=== PATIENT | female | born 1965 | race American Indian/Alaskan Native ===

== ENCOUNTER 2017-09-04 00:07 | Emergency (ER) | payer MEDICAID ==
[2017-09-04 02:03] LABS: Basophils % (Auto) 0.9 % (0.0-1.8); Eosinophils % (Auto) 1.4 % (0.0-4.3); Hematocrit 42.8 % (30.3-42.9); Hemoglobin 14.6 gm/dl (10.1-14.3); Mean Corpuscular HGB Conc 34 % (30-34); Mean Corpuscular Hemoglobin 32 pg (28-32); Mean Corpuscular Volume 93 fl (79-97); Platelet Count 227 K/mm3 (140-440); Red Blood Count 4.59 M/mm3 (3.65-5.03); Red Cell Distribution Width 15.2 % (13.2-15.2); White Blood Count 7.2 K/mm3 (4.5-11.0)
[2017-09-04 10:30] LABS: Urine Drugs of Abuse Note Disclamer
[2017-09-04 12:27] LABS: Bacteria,Urine 1+ /HPF (Negative); Bilirubin,Urine NEG (Negative); Blood,Urine SM (Negative); Ketones,Urine 20 mg/dL (Negative); Leukocyte Esterase,Urine NEG (Negative); Mucus,Urine 3+ /HPF; Nitrite,Urine NEG (Negative)
--- NOTE | 2017-09-04 12:44 | Emergency Department Report ---
HPI - General Chief Complaint: Headache Time Seen by Provider: 09/04/17 10:20 - HPI HPI: 51-year-old -[place] female states she drinks about 4-6 beers daily, last drank beers last night, feels like she needs alcohol detox to help her with alcohol cessation. She claims of being mildly anxious, denies chest pain, shortness of breath, has a mild headache which is her usual after binge drinking. She denies using any illicit drug use. She has frequent ER visits for similar issues, stated they usually give her something for anxiety after she drinks too much that helps with her intoxication/hangover. ED Past Medical Hx - Past Medical History Hx Hypertension: Yes Hx Congestive Heart Failure: No Hx Diabetes: Yes (BORDERLINE) Hx Sickle Cell Disease: No Hx Asthma: No Hx COPD: No Hx HIV: No Additional medical history: anemia. low calcium. Hypothyroidism. ALCOHOLIC - Surgical History Additional Surgical History: thyroid and parathyroid removed - Social History Smoking Status: Never Smoker Substance Use Type: Alcohol - Medications Home Medications: Home Medications Medication Instructions Recorded Confirmed Last Taken Type Ferrous Gluconate [Ferrous 1 mg PO TID 01/07/14 11/09/15 1 Day Ago History Gluconate 325 MG tab] Levothyroxine [Synthroid] 25 mcg PO QAM 01/07/14 11/09/15 1 Day Ago History Loratadine [Claritin] 10 mg PO DAILY 01/07/14 11/09/15 1 Day Ago History Sodium Chloride [Saline Nasal 2 spray INTRANASAL QDAY 01/07/14 11/09/15 1 Day Ago History [place]] Multivitamins-Mineral [Theragran-M] 1 each PO DAILY 30 Days 01/08/14 11/09/15 1 Day Ago Rx Pantoprazole [Protonix TAB] 40 mg PO QDAY 14 Days 01/09/14 11/09/15 1 Day Ago Rx amLODIPine [Norvasc] 10 mg PO DAILY 30 Days 01/09/14 11/09/15 1 Day Ago Rx Calcium Carbonate/Vitamin D3 1 tab PO QDAY #30 tablet 12/18/15 Unknown Rx [Calcium 600-Vit D3 800 Tablet] Gabapentin [Neurontin] 300 mg PO Q8HR #90 capsule 12/18/15 Unknown Rx Hydrochlorothiazide [HCTZ] 12.5 mg PO QDAY #30 capsule 12/18/15 Unknown Rx Levothyroxine Sodium [Unithroid] 175 mcg PO DAILY #30 tablet 12/18/15 Unknown Rx Metoprolol [Lopressor TAB] 100 mg PO BID #60 tablet 12/18/15 Unknown Rx Thiamine [Vitamin B-1] 100 mg PO QDAY 30 Days 12/18/15 Unknown Rx Calcitriol [Rocaltrol] 0.5 mcg PO QDAY #7 capsule 02/07/17 Unknown Rx Calcium Carbonate [Oscal] 2,500 mg PO TID #20 tablet 02/07/17 Unknown Rx Ferrous Gluconate [Fergon 325 MG 324 mg PO QDAY #30 tablet 02/07/17 Unknown Rx tab] Folic Acid [Folvite] 1 mg PO DAILY #30 tablet 02/07/17 Unknown Rx Levofloxacin [Levaquin TAB] 750 mg PO Q24HR@2200 #14 tablet 02/07/17 Unknown Rx chlordiazePOXIDE [Librium] 25 mg PO Q8H #14 capsule 02/07/17 Unknown Rx ED Review of Systems ROS: Stated complaint: FOOT PAIN Other details as noted in HPI Comment: All other systems reviewed and negative Musculoskeletal: as per HPI Neurological: headache Physical Exam - Physical Exam Vital Signs: Vital Signs 09/04/17 09/04/17 09/04/17 01:06 01:19 07:45 Temperature 97.5 F L 97.5 F L 97.8 F Pulse Rate 98 H 96 H 95 H Respiratory 18 18 16 Rate Blood Pressure 165/110 165/110 156/102 Blood Pressure [Left] O2 Sat by Pulse 100 100 99 Oximetry 09/04/17 09/04/17 09/04/17 10:11 10:16 10:21 Temperature 98 F Pulse Rate 93 H Respiratory 16 Rate Blood Pressure 140/85 140/85 Blood Pressure 140/85 [Left] O2 Sat by Pulse 100 100 Oximetry 09/04/17 09/04/17 09/04/17 10:30 11:31 11:45 Temperature Pulse Rate Respiratory Rate Blood Pressure 140/85 137/87 137/87 Blood Pressure [Left] O2 Sat by Pulse 100 100 98 Oximetry Physical Exam: Physical Exam: - General Limitations: No Limitations General appearance: alert, in no apparent distress, obese - Head Head exam: Present: atraumatic, normocephalic - Eye Eye exam: Present: normal appearance - ENT ENT exam: Present: mucous membranes moist - Neck Neck exam: Present: normal inspection - Respiratory Respiratory exam: Present: normal lung sounds bilaterally. Absent: respiratory distress - Cardiovascular Cardiovascular Exam: Present: normal rhythm, tachycardia. Absent: systolic murmur, diastolic murmur, rubs, gallop - GI/Abdominal GI/Abdominal exam: Present: soft, normal bowel sounds - Extremities Exam Extremities exam: Present: normal inspection - Back Exam Back exam: Present: normal inspection - Neurological Exam Neurological exam: Present: alert, oriented X3 - Psychiatric Psychiatric exam: normal affect and mood - Skin Skin exam: Present: warm, dry, intact, normal color. Absent: rash ED Course Vital Signs 09/04/17 09/04/17 09/04/17 01:06 01:19 07:45 Temperature 97.5 F L 97.5 F L 97.8 F Pulse Rate 98 H 96 H 95 H Respiratory 18 18 16 Rate Blood Pressure 165/110 165/110 156/102 Blood Pressure [Left] O2 Sat by Pulse 100 100 99 Oximetry 09/04/17 09/04/17 09/04/17 10:11 10:16 10:21 Temperature 98 F Pulse Rate 93 H Respiratory 16 Rate Blood Pressure 140/85 140/85 Blood Pressure 140/85 [Left] O2 Sat by Pulse 100 100 Oximetry 09/04/17 09/04/17 09/04/17 10:30 11:31 11:45 Temperature Pulse Rate Respiratory Rate Blood Pressure 140/85 137/87 137/87 Blood Pressure [Left] O2 Sat by Pulse 100 100 98 Oximetry - Reevaluation(s) Reevaluation #1: 09/04/17 12:43 Will be he'll have regarding the patient desired to have inpatient detox from alcohol, they will send someone to see her patient is medically clear for alcohol detoxification if deemed necessary by psych ED Medical Decision Making - Lab Data Result diagrams: 09/04/17 01:43 Critical care attestation.: If time is entered above; I have spent that time in minutes in the direct care of this critically ill patient, excluding procedure time. ED Disposition Clinical Impression: Alcohol abuse Disposition: [id number] [facility] H[facility]/PSY UNIT Is pt being admited?: No Does the pt Need Aspirin: No Condition: Stable Referrals: PRIMARY CARE, [Primary Care Provider] - 3-5 Days
[2017-09-04] MEDS: ATIVAN PO ONE (16:01)
[2017-09-04 18:45] VITALS: BP 129/73
== END 2017-09-05 01:47 ==
LOC: ED 00:07 → EEVIPCON 00:07 → ED 09-05 01:47
DX: F10.10 Alcohol abuse, uncomplicated (principal); R51 Headache
CPT/HCPCS: 36415; 80307; 81001; 83880; 85025; 93005; 93010; 99285; G0480; 80320

== ENCOUNTER 2018-08-16 05:19 | Inpatient (IN) | payer MEDICAID, OTHER ==
[2018-08-16] MEDS ORDERED: TYLENOL PO ONE (06:19)
[2018-08-16] MEDS ORDERED: TYLENOL ONE (06:25)
[2018-08-16 06:49] LABS: Basophils # (Auto) 0.1 K/mm3 (0.0-0.1); Basophils % (Auto) 0.7 % (0.0-1.8); Eosinophils # (Auto) 0.1 K/mm3 (0.0-0.4); Eosinophils % (Auto) 0.6 % (0.0-4.3); Hematocrit 38.6 % (30.3-42.9); Hemoglobin 13.2 gm/dl (10.1-14.3); Lymphocytes # (Auto) 1.7 K/mm3 (1.2-5.4); Lymphocytes % (Auto) 15.5 % (13.4-35.0); Mean Corpuscular HGB Conc 34 % (30-34); Mean Corpuscular Hemoglobin 33 pg (28-32); Mean Corpuscular Volume 96 fl (79-97); Monocytes # (Auto) 0.5 K/mm3 (0.0-0.8); Monocytes % (Auto) 4.3 % (0.0-7.3); Platelet Count 312 K/mm3 (140-440); Red Blood Count 4.04 M/mm3 (3.65-5.03); Red Cell Distribution Width 13.7 % (13.2-15.2)
--- NOTE | 2018-08-16 06:59 | XRay Report ---
FINAL REPORT EXAM: XR CHEST ROUTINE 2V HISTORY: Shortness of breath TECHNIQUE: PA and lateral views of the chest were submitted. FINDINGS: The heart size and vascularity appear normal. The lungs are clear. Pleural fluid is not seen. The skeletal structures do not show any acute changes. IMPRESSION: No acute cardiopulmonary process.
[2018-08-16 07:09] LABS: BUN/Creatinine Ratio 9; Blood Urea Nitrogen 6 mg/dL (7-17); Hemolysis Index 4
[2018-08-16 07:18] LABS: Calcium 5.5 mg/dL (8.4-10.2)
[2018-08-16] MEDS ORDERED: LIBRIUM PO ONE (07:52)
[2018-08-16] MEDS ORDERED: ATIVAN IV PRN ×2 (07:52)
--- NOTE | 2018-08-16 07:56 | Emergency Department Report ---
ED General Adult HPI - General Chief complaint: Dyspnea/Respdistress Stated complaint: BODY PAIN/SWOLLEN FEET Time Seen by Provider: 08/16/18 07:29 Source: patient, RN notes reviewed, old records reviewed Mode of arrival: Ambulatory Limitations: No Limitations - History of Present Illness Initial comments: This is a 52-year-old female who was not to this provider previously. The patient has a past medical history of alcohol abuse, alcoholism, lower extremity edema, chronic hypocalcemia. 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 Patient was discharged with calcium carbonate, calcitriol and Librium. Alcohol abstinence was recommended. Today, she presents to the ER with a complaint of nontraumatic burning left plantar and dorsal foot pain, mild headache which is occipital, not sudden or thunderclap in nature, and subjective sensation of alcohol withdrawal. Her symptoms are constant, do not radiate anywhere, and do not have exacerbating or relieving factors. She indicates her last drink of alcohol was last night. She is not having hallucinations or suicidality, and she is not homicidal. The patient reports that she is also feeling anxious. -: Gradual Location: head, left, lower extremity Radiation: non-radiation Severity scale (0 -10): 7 Quality: aching Consistency: other Improves with: other Worsens with: other Associated Symptoms: headaches, loss of appetite, malaise, weakness. denies: confusion, chest pain, cough, diaphoresis, fever/chills, nausea/vomiting, rash, seizure, shortness of breath, syncope - Related Data Home Medications Medication Instructions Recorded Confirmed Last Taken Ferrous Gluconate [Ferrous 1 mg PO TID 01/07/14 11/09/15 1 Day Ago Gluconate 325 MG tab] ~11/08/15 Levothyroxine [Synthroid] 25 mcg PO QAM 01/07/14 11/09/15 1 Day Ago ~11/08/15 Loratadine [Claritin] 10 mg PO DAILY 01/07/14 11/09/15 1 Day Ago ~11/08/15 Sodium Chloride [Saline Nasal 2 spray INTRANASAL QDAY 01/07/14 11/09/15 1 Day Ago [place]] ~11/08/15 Previous Rx's Medication Instructions Recorded Last Taken Type Multivitamins-Mineral [Theragran-M] 1 each PO DAILY 30 Days tablet 01/08/14 1 Day Ago Rx ~11/08/15 Pantoprazole [Protonix TAB] 40 mg PO QDAY 14 Days tablet 01/09/14 1 Day Ago Rx ~11/08/15 amLODIPine [Norvasc] 10 mg PO DAILY 30 Days tab 01/09/14 1 Day Ago Rx ~11/08/15 Calcium Carbonate/Vitamin D3 1 tab PO QDAY #30 tablet 12/18/15 Unknown Rx [Calcium 600-Vit D3 800 Tablet] Gabapentin [Neurontin] 300 mg PO Q8HR #90 capsule 12/18/15 Unknown Rx Levothyroxine Sodium [Unithroid] 175 mcg PO DAILY #30 tablet 12/18/15 Unknown Rx Metoprolol [Lopressor TAB] 100 mg PO BID #60 tablet 12/18/15 Unknown Rx Thiamine [Vitamin B-1] 100 mg PO QDAY 30 Days tablet 12/18/15 Unknown Rx hydroCHLOROthiazide [HCTZ] 12.5 mg PO QDAY #30 capsule 12/18/15 Unknown Rx Calcitriol [Rocaltrol] 0.5 mcg PO QDAY #7 capsule 02/07/17 Unknown Rx Calcium Carbonate [Oscal] 2,500 mg PO TID #20 tablet 02/07/17 Unknown Rx Ferrous Gluconate [Fergon 325 MG 324 mg PO QDAY #30 tablet 02/07/17 Unknown Rx tab] Folic Acid [Folvite] 1 mg PO DAILY #30 tablet 02/07/17 Unknown Rx chlordiazePOXIDE [Librium] 25 mg PO Q8H #14 capsule 02/07/17 Unknown Rx levoFLOXacin [Levaquin TAB] 750 mg PO Q24HR@2200 #14 tablet 02/07/17 Unknown Rx Allergies Allergy/AdvReac Type Severity Reaction Status Date / Time No Known Allergies Allergy Verified 02/01/17 13:04 ED Review of Systems ROS: Stated complaint: BODY PAIN/SWOLLEN FEET Other details as noted in HPI Comment: All other systems reviewed and negative ED Past Medical Hx - Past Medical History Previous Medical History?: Yes Hx Hypertension: Yes Hx Congestive Heart Failure: No Hx Diabetes: Yes (BORDERLINE) Hx Sickle Cell Disease: No Hx Asthma: No Hx COPD: No Hx HIV: No Additional medical history: anemia. low calcium. Hypothyroidism. ALCOHOLIC - Surgical History Past Surgical History?: Yes Additional Surgical History: thyroid and parathyroid removed - Social History Smoking Status: Never Smoker Substance Use Type: Alcohol - Medications Home Medications: Home Medications Medication Instructions Recorded Confirmed Last Taken Type Ferrous Gluconate [Ferrous 1 mg PO TID 01/07/14 11/09/15 1 Day Ago History Gluconate 325 MG tab] ~11/08/15 Levothyroxine [Synthroid] 25 mcg PO QAM 01/07/14 11/09/15 1 Day Ago History ~11/08/15 Loratadine [Claritin] 10 mg PO DAILY 01/07/14 11/09/15 1 Day Ago History ~11/08/15 Sodium Chloride [Saline Nasal 2 spray INTRANASAL QDAY 01/07/14 11/09/15 1 Day Ago History [place]] ~11/08/15 Multivitamins-Mineral [Theragran-M] 1 each PO DAILY 30 Days tablet 01/08/14 1 Day Ago Rx ~11/08/15 Pantoprazole [Protonix TAB] 40 mg PO QDAY 14 Days tablet 01/09/14 11/09/15 1 Day Ago Rx ~11/08/15 amLODIPine [Norvasc] 10 mg PO DAILY 30 Days tab 01/09/14 11/09/15 1 Day Ago Rx ~11/08/15 Calcium Carbonate/Vitamin D3 1 tab PO QDAY #30 tablet 12/18/15 Unknown Rx [Calcium 600-Vit D3 800 Tablet] Gabapentin [Neurontin] 300 mg PO Q8HR #90 capsule 12/18/15 Unknown Rx Levothyroxine Sodium [Unithroid] 175 mcg PO DAILY #30 tablet 12/18/15 Unknown Rx Metoprolol [Lopressor TAB] 100 mg PO BID #60 tablet 12/18/15 Unknown Rx Thiamine [Vitamin B-1] 100 mg PO QDAY 30 Days tablet 12/18/15 Unknown Rx hydroCHLOROthiazide [HCTZ] 12.5 mg PO QDAY #30 capsule 12/18/15 Unknown Rx Calcitriol [Rocaltrol] 0.5 mcg PO QDAY #7 capsule 02/07/17 Unknown Rx Calcium Carbonate [Oscal] 2,500 mg PO TID #20 tablet 02/07/17 Unknown Rx Ferrous Gluconate [Fergon 325 MG 324 mg PO QDAY #30 tablet 02/07/17 Unknown Rx tab] Folic Acid [Folvite] 1 mg PO DAILY #30 tablet 02/07/17 Unknown Rx chlordiazePOXIDE [Librium] 25 mg PO Q8H #14 capsule 02/07/17 Unknown Rx levoFLOXacin [Levaquin TAB] 750 mg PO Q24HR@2200 #14 tablet 02/07/17 Unknown Rx ED Physical Exam - General Limitations: No Limitations General appearance: alert, in no apparent distress - Head Head exam: Present: atraumatic, normocephalic - Eye Eye exam: Present: normal appearance, EOMI. Absent: nystagmus - ENT ENT exam: Present: mucous membranes dry, other (mild tongue fasciculations noted.) - Neck Neck exam: Present: normal inspection, full ROM. Absent: tenderness, meningismus - Respiratory Respiratory exam: Present: normal lung sounds bilaterally. Absent: respiratory distress - Cardiovascular Cardiovascular Exam: Present: regular rate, normal rhythm, normal heart sounds. Absent: bradycardia, tachycardia, irregular rhythm, systolic murmur, diastolic murmur, rubs, gallop - GI/Abdominal GI/Abdominal exam: Present: soft. Absent: distended, tenderness, guarding, rebound, rigid, pulsatile mass - Extremities Exam Extremities exam: Present: normal inspection, full ROM, tenderness (there is plantar bilateral foot tenderness. There is no dorsal foot tenderness. There is no redness, pus, streaking.), normal capillary refill, pedal edema (2+ pitting edema bilateral lower extremities), other (2+ pulses noted in the bilateral upper, lower extremities. Compartments soft. No long bony tenderness. The pelvis is stable.). Absent: calf tenderness - Back Exam Back exam: Present: normal inspection, full ROM. Absent: tenderness, CVA tenderness (R), paraspinal tenderness, vertebral tenderness - Neurological Exam Neurological exam: Present: alert, oriented X3, CN II-XII intact, normal gait, other (Extraocular movements intact. Tongue midline. No facial droop. Facial sensation intact to light touch in the V1, V2, V3 distribution bilaterally. 5 and 5 strength in 4 extremities.. Sensation is intact to light touch in 4 extremities.). Absent: motor sensory deficit - Psychiatric Psychiatric exam: Absent: homicidal ideation, suicidal ideation - Skin Skin exam: Present: warm, dry, intact, normal color. Absent: rash ED Course Vital Signs 08/16/18 08/16/18 08/16/18 06:11 06:25 07:32 Temperature 98.1 F Pulse Rate 87 88 Respiratory 18 18 16 Rate Blood Pressure 176/102 O2 Sat by Pulse 98 Oximetry 08/16/18 08/16/18 08/16/18 08:00 08:16 08:30 Temperature Pulse Rate 87 89 87 Respiratory 11 L 16 16 Rate Blood Pressure 159/87 165/90 173/149 O2 Sat by Pulse 100 100 Oximetry 08/16/18 08/16/18 08/16/18 08:55 09:00 09:12 Temperature 98.2 F Pulse Rate 88 92 H 83 Respiratory 16 Rate Blood Pressure 159/87 145/97 O2 Sat by Pulse 99 Oximetry 08/16/18 08/16/18 09:15 09:30 Temperature Pulse Rate 84 89 Respiratory 16 16 Rate Blood Pressure 125/90 125/90 O2 Sat by Pulse 99 98 Oximetry ED Medical Decision Making - Lab Data Result diagrams: 08/16/18 06:34 08/16/18 06:34 Vital Signs 08/16/18 08/16/18 08/16/18 06:11 06:25 07:32 Temperature 98.1 F Pulse Rate 87 88 Respiratory 18 18 16 Rate Blood Pressure 176/102 O2 Sat by Pulse 98 Oximetry 08/16/18 08/16/18 08/16/18 08:00 08:16 08:30 Temperature Pulse Rate 87 89 87 Respiratory 11 L 16 16 Rate Blood Pressure 159/87 165/90 173/149 O2 Sat by Pulse 100 100 Oximetry 08/16/18 08/16/18 08/16/18 08:55 09:00 09:12 Temperature 98.2 F Pulse Rate 88 92 H 83 Respiratory 16 Rate Blood Pressure 159/87 145/97 O2 Sat by Pulse 99 Oximetry 08/16/18 08/16/18 09:15 09:30 Temperature Pulse Rate 84 89 Respiratory 16 16 Rate Blood Pressure 125/90 125/90 O2 Sat by Pulse 99 98 Oximetry Labs 08/16/18 08/16/18 08/16/18 06:34 06:34 06:34 WBC 11.2 H RBC 4.04 Hgb 13.2 Hct 38.6 MCV 96 MCH 33 H MCHC 34 RDW 13.7 Plt Count 312 Lymph % (Auto) 15.5 [place] % (Auto) 4.3 Eos % (Auto) 0.6 Baso % (Auto) 0.7 Lymph # 1.7 [place] # 0.5 Eos # 0.1 Baso # 0.1 Seg Neutrophils % 78.9 H Seg Neutrophils # 8.9 H Sodium 141 Potassium 4.4 Chloride 97.7 L Carbon Dioxide 26 Anion Gap 22 BUN 6 L Creatinine 0.7 Estimated GFR > 60 BUN/Creatinine Ratio 9 Glucose 100 Calcium 5.5 L* Magnesium 1.50 L Total Bilirubin 0.40 Direct Bilirubin < 0.2 Indirect Bilirubin 0.2 AST 31 ALT 20 Alkaline Phosphatase 125 Total Creatine Kinase 470 H NT-Pro-B Natriuret Pep 87.79 Total Protein 9.0 H Albumin 4.2 Albumin/Globulin Ratio 0.9 Urine Color Urine Turbidity Urine pH Ur Specific [place] Urine Protein Urine Glucose (UA) Urine Ketones Urine Blood Urine Nitrite Urine Bilirubin Urine Urobilinogen Ur Leukocyte Esterase Urine WBC (Auto) Urine RBC (Auto) U Epithel Cells (Auto) Urine Bacteria (Auto) Urine Mucus Salicylates Urine Opiates Screen Urine Methadone Screen Acetaminophen Ur Barbiturates Screen Ur Phencyclidine Scrn Ur Amphetamines Screen U Benzodiazepines Scrn Urine Cocaine Screen U Marijuana (THC) Screen Drugs of Abuse Note Plasma/Serum Alcohol 08/16/18 08/16/18 08/16/18 06:40 06:40 06:40 WBC RBC Hgb Hct MCV MCH MCHC RDW Plt Count Lymph % (Auto) [place] % (Auto) Eos % (Auto) Baso % (Auto) Lymph # [place] # Eos # Baso # Seg Neutrophils % Seg Neutrophils # Sodium Potassium Chloride Carbon Dioxide Anion Gap BUN Creatinine Estimated GFR BUN/Creatinine Ratio Glucose Calcium Magnesium Total Bilirubin Direct Bilirubin Indirect Bilirubin AST ALT Alkaline Phosphatase Total Creatine Kinase NT-Pro-B Natriuret Pep Total Protein Albumin Albumin/Globulin Ratio Urine Color Urine Turbidity Urine pH Ur Specific [place] Urine Protein Urine Glucose (UA) Urine Ketones Urine Blood Urine Nitrite Urine Bilirubin Urine Urobilinogen Ur Leukocyte Esterase Urine WBC (Auto) Urine RBC (Auto) U Epithel Cells (Auto) Urine Bacteria (Auto) Urine Mucus Salicylates < 0.3 L Urine Opiates Screen Urine Methadone Screen Acetaminophen < 5.0 L Ur Barbiturates Screen Ur Phencyclidine Scrn Ur Amphetamines Screen U Benzodiazepines Scrn Urine Cocaine Screen U Marijuana (THC) Screen Drugs of Abuse Note Plasma/Serum Alcohol < 0.01 08/16/18 08/16/18 07:52 07:52 WBC RBC Hgb Hct MCV MCH MCHC RDW Plt Count Lymph % (Auto) [place] % (Auto) Eos % (Auto) Baso % (Auto) Lymph # [place] # Eos # Baso # Seg Neutrophils % Seg Neutrophils # Sodium Potassium Chloride Carbon Dioxide Anion Gap BUN Creatinine Estimated GFR BUN/Creatinine Ratio Glucose Calcium Magnesium Total Bilirubin Direct Bilirubin Indirect Bilirubin AST ALT Alkaline Phosphatase Total Creatine Kinase NT-Pro-B Natriuret Pep Total Protein Albumin Albumin/Globulin Ratio Urine Color Yellow Urine Turbidity Clear Urine pH 6.0 Ur Specific [place] 1.013 Urine Protein <15 mg/dl Urine Glucose (UA) Neg Urine Ketones Neg Urine Blood Sm Urine Nitrite Neg Urine Bilirubin Neg Urine Urobilinogen < 2.0 Ur Leukocyte Esterase Neg Urine WBC (Auto) 2.0 Urine RBC (Auto) 4.0 U Epithel Cells (Auto) 1.0 Urine Bacteria (Auto) 1+ Urine Mucus Few Salicylates Urine Opiates Screen Presumptive negative Urine Methadone Screen Presumptive negative Acetaminophen Ur Barbiturates Screen Presumptive negative Ur Phencyclidine Scrn Presumptive negative Ur Amphetamines Screen Presumptive negative U Benzodiazepines Scrn Presumptive negative Urine Cocaine Screen Presumptive negative U Marijuana (THC) Screen Presumptive negative Drugs of Abuse Note Disclamer Plasma/Serum Alcohol - EKG Data -: EKG Interpreted by Dc EKG shows normal: sinus rhythm Rate: normal - EKG Data Interpretation: unchanged when compared t 08/16/18 09:55 Sinus, 87 bpm, left axis deviation, QTC prolonged, low voltage, abnormal EKG, this EKG is not a STEMI, this EKG appears to be unchanged from prior EKG from August 2017. - Radiology Data Radiology results: report reviewed, image reviewed Noncontrast CT scan of the brain is negative for acute disease. X-ray the chest is negative for acute disease. LIVE [facility] ROSEANN WONG Female : 1965 MedRec# [id number] 08/16/18 08:48 - Radiology Dept. Note by STUART LIMA Acct Num: [id number] : 1965 Patient Age: 52 VASCULAR LAB.PRELIMINARY REPORT. BLE VENOUS DUPLEX DONE BEDSIDE. NO EVIDENCE OF DVT/SVT IN VESSELS VISUALIZED. Initialized on 08/16/18 08:48 - END OF NOTE - Medical Decision Making Differential diagnosis, including but not limited to: Venous insufficiency, DVT , malnutrition, hypocalcemia, alcohol withdrawal Assessment and plan: 52-year-old female with mild alcohol withdrawal, chronic lower extremity edema, multiple electrolyte derangements, including hypomagnesemia and hypocalcemia. Patient does not meet 1013 criteria. Patient started on the ciwa protocol, and she is given magnesium repletion as well as calcium repletion. A mental health consultation has been requested and they will follow as inpatient. Noncontrast CT scan of the brain is negative, x-ray of the chest is negative, and lower extremity DVT study is also negative. The case was presented to the Hospital physician, Dr. Aaron, who accepted the patient for electrolyte derangement in mild alcohol withdrawal. Critical Care Time: Yes Critical care time in (mins) excluding proc time.: 35 Critical care attestation.: If time is entered above; I have spent that time in minutes in the direct care of this critically ill patient, excluding procedure time. Critical Care Time: Critical care time includes multiple bedside evaluations, interpretation of laboratory studies, radiology studies, review of old medical records, consulting with hospital medicine service, and time spent observing patient's on cardiac monitoring while magnesium sulfate supplementation is administered. This does not include procedure time. ED Disposition Clinical Impression: Alcoholism, Hypocalcemia, Hypomagnesemia Disposition: OP ADMIT IP TO THIS HOSP Is pt being admited?: Yes Condition: Good
--- NOTE | 2018-08-16 08:02 | History and Physical Report ---
History of Present Illness Date of admission: generalized body pain Chief complaint: generalized body pain History of present illness: 52-year-old -Algerian female whose past medical history significant for hypertension, hypoparathyroidism,, alcohol abuse presented to the emergency department complaining of generalized body pain for the last 2-3 days. Patient said it hurts on the head, back and legs, 9 out of 10 in intensity, patient said sometimes sharp, dull, throbbing and said constant pain. Patient said her last drink was yesterday and she feels anxious, shakiness and dizziness. She said she has withdrawal. He usually drinks 4-5 cans of beers. REVIEW OF SYSTEMS: GENERAL: no weight change, no fatigue, no fever HEAD: no head ache EYES: no blurry vision, no acute visual loss EARS: no hearing loss, no discharge, no earache NOSE: no stuffiness, no sneezing, no discharge MOUTH, THROAT AND NECK: no bleeding gums, no sore throat, no swollen neck CARDIAC: no palpitations, no dyspnea on exertion, no orthopnea, no PND, no edema , no chest pain RESPIRATORY: no shortness of breath, no wheeze, no cough, no sputum, no hemoptysis, no asthma GI: no decreased appetite, no nausea, no vomiting, no dysphagia, no diarrhea, no constipation, no abdominal pain URINARY: no change in frequency, no urgency, no polyuria, no hematuria, no incontinence MUSCULOSKELETAL: no muscle weakness, no pain, no joint stiffness NEUROLOGIC: no loss of sensation/numbness, no tingling, no tremors, no weakness/ paralysis HEMATOLOGIC: no anemia, no easy bruising SKIN: no rashes ENDOCRINE: no heat/cold intolerance, no polyuria, no polydipsia, no thyroid problems, no diabetes PSYCHIATRIC: no anxiety, no depression, no suicidal ideations Past History Past Medical History: hypertension Past Surgical History: thyroidectomy, Other (parathyroidectomy) Social history: alcohol abuse, full code. denies: smoking, prescription drug abuse Family history: no significant family history Medications and Allergies Allergies Allergy/AdvReac Type Severity Reaction Status Date / Time No Known Allergies Allergy Verified 02/01/17 13:04 Home Medications Medication Instructions Recorded Confirmed Last Taken Type Multivitamins-Mineral [Theragran-M] 1 each PO DAILY 30 Days tablet 01/08/14 1 Day Ago Rx ~11/08/15 amLODIPine [Norvasc] 10 mg PO DAILY 30 Days tab 01/09/14 08/16/18 1 Day Ago Rx ~11/08/15 Calcium Carbonate/Vitamin D3 1 tab PO QDAY #30 tablet 12/18/15 08/16/18 Unknown Rx [Calcium 600-Vit D3 800 Tablet] Ferrous Gluconate [Fergon 325 MG 324 mg PO QDAY #30 tablet 02/07/17 08/16/18 Unknown Rx tab] Folic Acid [Folvite] 1 mg PO DAILY #30 tablet 02/07/17 08/16/18 Unknown Rx Gabapentin [Neurontin] 600 mg PO Q8HR 08/16/18 08/16/18 Unknown History Levothyroxine [Synthroid] 75 mcg PO QAM 08/16/18 08/16/18 Unknown History hydroCHLOROthiazide [HCTZ] 25 mg PO QDAY 08/16/18 08/16/18 Unknown History Active Meds: Active Medications Calcitriol (Rocaltrol) 0.5 mcg PO ONCE ONE Stop: 08/16/18 07:53 Calcium Carbonate/Glycine (Oscal) 1,250 mg PO NOW STA Stop: 08/16/18 07:53 Calcium Gluconate 1,000 mg/ (Sodium Chloride) 110 mls @ 660 mls/hr IV ONCE ONE Stop: 08/16/18 08:01 Thiamine HCl 100 mg/ Folic Acid 1 mg/ Multivitamins/Minerals 10 ml/ Sodium Chloride 1,011.2 mls @ 250 mls/hr IV ONCE ONE Stop: 08/16/18 11:57 Lorazepam (Ativan) 2 mg IV Q1HR PRN PRN Reason: CIWA-Ar 8-15 Lorazepam (Ativan) 4 mg IV Q1HR PRN PRN Reason: CIWA-Ar 16-25 Lorazepam (Ativan) 4 mg IV Q15MIN PRN PRN Reason: CIWA-Ar >25 Exam - Physical Exam Narrative exam: Not in cardiopulmonary distress. The patient appeared well nourished and normally developed. Vital signs as documented. Head exam is unremarkable. No scleral icterus . Neck is without jugular venous distension, thyromegaly, or carotid bruits. Lungs are clear to auscultation. Cardiac exam reveals regular rate and Rhythm. First and second heart sounds normal. No murmurs, rubs or gallops. Abdominal exam reveals normal bowel sounds, no masses, no organomegaly and no aortic enlargement. Extremities are nonedematous and both femoral and pedal pulses are normal. IS MANAGER: Alert and oriented 3. Fine termers. - Constitutional Vitals: Temp Pulse Resp BP Pulse Ox 98.1 F 87 18 176/102 98 08/16/18 06:11 08/16/18 06:11 08/16/18 06:25 08/16/18 06:11 08/16/18 06:11 Results - Labs CBC & Chem 7: 08/16/18 06:34 08/16/18 06:34 Labs: Laboratory Last Values WBC 11.2 K/mm3 (4.5-11.0) H 08/16/18 06:34 RBC 4.04 M/mm3 (3.65-5.03) 08/16/18 06:34 Hgb 13.2 gm/dl (10.1-14.3) 08/16/18 06:34 Hct 38.6 % (30.3-42.9) 08/16/18 06:34 MCV 96 fl (79-97) 08/16/18 06:34 MCH 33 pg (28-32) H 08/16/18 06:34 MCHC 34 % (30-34) 08/16/18 06:34 RDW 13.7 % (13.2-15.2) 08/16/18 06:34 Plt Count 312 K/mm3 (140-440) 08/16/18 06:34 Lymph % (Auto) 15.5 % (13.4-35.0) 08/16/18 06:34 [place] % (Auto) 4.3 % (0.0-7.3) 08/16/18 06:34 Eos % (Auto) 0.6 % (0.0-4.3) 08/16/18 06:34 Baso % (Auto) 0.7 % (0.0-1.8) 08/16/18 06:34 Lymph # 1.7 K/mm3 (1.2-5.4) 08/16/18 06:34 [place] # 0.5 K/mm3 (0.0-0.8) 08/16/18 06:34 Eos # 0.1 K/mm3 (0.0-0.4) 08/16/18 06:34 Baso # 0.1 K/mm3 (0.0-0.1) 08/16/18 06:34 Seg Neutrophils % 78.9 % (40.0-70.0) H 08/16/18 06:34 Seg Neutrophils # 8.9 K/mm3 (1.8-7.7) H 08/16/18 06:34 Sodium 141 mmol/L (137-145) 08/16/18 06:34 Potassium 4.4 mmol/L (3.6-5.0) 08/16/18 06:34 Chloride 97.7 mmol/L (98-107) L 08/16/18 06:34 Carbon Dioxide 26 mmol/L (22-30) 08/16/18 06:34 Anion Gap 22 mmol/L 08/16/18 06:34 BUN 6 mg/dL (7-17) L 08/16/18 06:34 Creatinine 0.7 mg/dL (0.7-1.2) 08/16/18 06:34 Estimated GFR > 60 ml/min 08/16/18 06:34 BUN/Creatinine Ratio 9 % 08/16/18 06:34 Glucose 100 mg/dL (65-100) 08/16/18 06:34 Calcium 5.5 mg/dL (8.4-10.2) L* 08/16/18 06:34 NT-Pro-B Natriuret Pep 87.79 pg/mL (0-900) 08/16/18 06:34 Salicylates < 0.3 mg/dL (2.8-20.0) L 08/16/18 06:40 Acetaminophen < 5.0 ug/mL (10.0-30.0) L 08/16/18 06:40 Plasma/Serum Alcohol < 0.01 % (0-0.07) 08/16/18 06:40 Assessment and Plan Assessment and plan: Alcohol withdrawal DT - Patient is on [facility] protocol Hypothyroidism - Continue levothyroxine Hypoparathyroidism, severe hypocalcemia - Patient was given calcium gluconate in the ED - We'll continue calcium replacement Hypertension - Resume her medications Generalized pain - Pain control Disposition - Admit to [facility] floor DVT prophylaxis - Lovenox Advance Directives: Yes VTE prophylaxis?: Chemical Plan of care discussed with patient/family: Yes
[2018-08-16 08:09] LABS: Alanine Aminotransferase 20 units/L (7-56); Albumin 4.2 g/dL (3.9-5)
[2018-08-16 08:26] LABS: Bilirubin,Direct < 0.2 mg/dL (0-0.2)
[2018-08-16] MEDS ORDERED: ATIVAN ONE (08:29)
[2018-08-16] MEDS ORDERED: OSCAL PO ONE (08:30)
[2018-08-16] MEDS ORDERED: MAGNESIUM SULFATE 2GM/50ML 2 GM/50 ML BAG IV ONE (08:30)
[2018-08-16] MEDS ORDERED: CALCIUM GLUCONATE 1,000 MG in NACL 0.9% 100 ML IV ONE (08:30)
[2018-08-16] MEDS ORDERED: LIBRIUM ONE (08:31)
[2018-08-16 08:38] LABS: Bacteria,Urine 1+ /HPF (Negative); Bilirubin,Urine NEG (Negative); Blood,Urine SM (Negative); Color,Urine Yellow (Yellow); Mucus,Urine FEW /HPF; Protein,Urine <15 mg/dL mg/dL (Negative); Urobilinogen,Urine < 2.0 mg/dL (<2.0)
[2018-08-16 08:41] LABS: Amphetamine Screen,Urine PRESUMPTIVE NEGATIVE; Benzodiazepines Screen,Urine PRESUMPTIVE NEGATIVE; Cannabinoid Screen,Urine PRESUMPTIVE NEGATIVE; Cocaine Screen,Urine PRESUMPTIVE NEGATIVE; Methadone Screen,Urine PRESUMPTIVE NEGATIVE; Opiate Screen,Urine PRESUMPTIVE NEGATIVE
[2018-08-16] MEDS ORDERED: ROCALTROL PO ONE (09:00)
[2018-08-16] MEDS ORDERED: VITAMIN B-1 100 MG, FOLVITE 1 MG, INFUVITE 10 ML in NACL 0.9% 1000 ML 1,000 ML IV ONE (09:00)
[2018-08-16] MEDS: ATIVAN IV PRN ×3 (09:05→22:30)
--- NOTE | 2018-08-16 09:33 | Cat Scan Report ---
FINAL REPORT EXAM: CT HEAD/BRAIN WO CON HISTORY: headache etoh abuse COMPARISON: None. TECHNIQUE: Multiple contiguous axial images were obtained from the skullbase to the vertex without administration of IV contrast. FINDINGS: There is no parenchymal hemorrhage or extra-axial fluid collection. There is no mass or mass effect. There is no acute territorial infarct. The ventricles are midline. The subarachnoid spaces and basilar cisterns are clear. There is no skull fracture. The paranasal sinuses and mastoid air cells are clear. There is a hematoma of the soft tissues of the left frontal scalp. IMPRESSION: No acute intracranial abnormality. Left frontal scalp hematoma.
[2018-08-16] MEDS ORDERED: CALCIUM CARBONATE PO SCH (14:30)
[2018-08-16] MEDS ORDERED: VITAMIN D3 PO SCH (14:30)
[2018-08-16] MEDS: NORVASC PO SCH (16:30)
[2018-08-16] MEDS: HCTZ PO SCH (16:31)
[2018-08-16] MEDS: NEURONTIN PO SCH ×2 (16:31→22:06)
[2018-08-16] MEDS: FOLVITE PO SCH (16:31)
[2018-08-16] MEDS ORDERED: LOVENOX SUB-Q SCH (22:00)
[2018-08-17] MEDS: NEURONTIN PO SCH ×2 (05:48→14:17)
[2018-08-17] MEDS ORDERED: SYNTHROID PO SCH (06:00)
[2018-08-17 07:00] LABS: BUN/Creatinine Ratio 13; Blood Urea Nitrogen 9 mg/dL (7-17); Hemolysis Index 2
[2018-08-17 07:24] LABS: Calcium 5.7 mg/dL (8.4-10.2)
[2018-08-17] MEDS ORDERED: CALCIUM CHLORIDE IV ONE (07:40)
[2018-08-17] MEDS ORDERED: CALCIUM CHLORIDE 1,000 MG in NACL 0.9% 50 ML IV NR (08:00)
[2018-08-17] MEDS ORDERED: CALCIUM CHLORIDE 1,000 MG in NACL 0.9% 100 ML IV NR (08:00)
[2018-08-17] MEDS ORDERED: K-DUR PO NR (08:17)
[2018-08-17] MEDS: ATIVAN IV PRN (08:38)
[2018-08-17] MEDS ORDERED: MAGNESIUM SULFATE 1 GM in WATER FOR INJ (PF) 23 ML IV ONE (09:00)
[2018-08-17] MEDS: NORVASC PO SCH (09:51)
[2018-08-17] MEDS: FOLVITE PO SCH (09:52)
[2018-08-17] MEDS: HCTZ PO SCH (09:52)
[2018-08-17] MEDS ORDERED: [UNRECOGNIZED DRUG - OTHER] PO SCH (10:00)
[2018-08-17] MEDS ORDERED: CALTRATE PLUS PO SCH (10:00)
[2018-08-17] MEDS ORDERED: THERAGRAN Tab PO SCH (10:00)
[2018-08-17] MEDS ORDERED: FERGON PO SCH (10:00)
[2018-08-17] MEDS ORDERED: MAGNESIUM SULFATE 1 GM in NACL 0.9% 50 ML IV ONE (10:00)
--- NOTE | 2018-08-17 10:50 | Discharge Summary ---
Providers - Providers Date of Admission: 08/16/18 07:56 Attending physician: LAURA ALEXANDRA MD 08/16/18 07:52 Consult to Mental Health [CONS] Stat Reason For Exam: etoh withdrawal Place consult to:: mental health television presenter Notified:: awaiting call back Primary care physician: GRAY DAO MD Hospitalization Condition: Good Time spent for discharge: 32 minutes - Discharge Diagnoses (1) Alcoholism Status: Acute (2) Hypocalcemia Status: Acute (3) Hypomagnesemia Status: Acute (4) General weakness Status: Acute Core Measure Documentation - Palliative Care Palliative Care/ Comfort Measures: Not Applicable - Core Measures Any of the following diagnoses?: none Exam - Physical Exam Narrative exam: Not in cardiopulmonary distress. The patient appeared well nourished and normally developed. Vital signs as documented. Head exam is unremarkable. No scleral icterus . Neck is without jugular venous distension, thyromegaly, or carotid bruits. Lungs are clear to auscultation. Cardiac exam reveals regular rate and Rhythm. First and second heart sounds normal. No murmurs, rubs or gallops. Abdominal exam reveals normal bowel sounds, no masses, no organomegaly and no aortic enlargement. Extremities are nonedematous and both femoral and pedal pulses are normal. BUYERS' AGENT: Alert and oriented 3. - Constitutional Vitals: Temp Pulse Resp BP Pulse Ox 98.3 F 85 20 141/92 95 08/17/18 05:55 08/17/18 05:55 08/17/18 05:55 08/17/18 05:55 08/17/18 05:55 Plan Activity: no restrictions Weight Bearing Status: Full Weight Bearing Diet: low fat Follow up with: PRIMARY CAREMD [Primary Care Provider] - 3-5 Days (F/U at [facility] in 1-2 weeks. ) Prescriptions: amLODIPine [Norvasc] 10 mg PO DAILY #30 tab Calcium Carbonate [Calcium] 500 mg PO TID #90 tablet Folic Acid [Folvite] 1 mg PO DAILY #30 tablet Gabapentin [Neurontin] 600 mg PO Q8HR #90 capsule hydroCHLOROthiazide [HCTZ] 25 mg PO QDAY #30 capsule Levothyroxine [Synthroid] 75 mcg PO QAM #30 tablet
--- NOTE | 2018-08-17 15:20 | Consultation ---
History of Present Illness - Reason for Consult Consult date: 08/17/18 Reason for consult: Mental Health Evaluation Requesting physician: LAURA ALEXANDRA - Chief Complaint Chief complaint: "I will stop drinking" - History of Present Psychiatric Illness 52 y.o. AA female presenting to ER for generalized pain. Psychiatry was consulted to see patient for ETOH. Today the patient is calm and cooperative during the assessment. She stated that her alcohol consumption has increased the last 2 weeks, because she was homeless. She stated that she was informed that she had to move out of her "room" because the district sales manager sold the home. She stated that she was "devastated" when she heard she had to move. She stated drinking (etoh) socially for several years. She stated that she would like to "try" rehab services to stop drinking "period." She denies having a mood do when asked. She denies SI/HI's and AVH's. She denies erratic sleep and a poor appetite. She denies recreational drug use. She stated that [facility] is assisting her with placement. Medications and Allergies Allergies Allergy/AdvReac Type Severity Reaction Status Date / Time No Known Allergies Allergy Verified 02/01/17 13:04 Home Medications Medication Instructions Recorded Confirmed Last Taken Type Multivitamins-Mineral [Theragran-M] 1 each PO DAILY 30 Days tablet 01/08/14 1 Day Ago Rx ~11/08/15 Calcium Carbonate/Vitamin D3 1 tab PO QDAY #30 tablet 12/18/15 08/16/18 Unknown Rx [Calcium 600-Vit D3 800 Tablet] Ferrous Gluconate [Fergon 325 MG 324 mg PO QDAY #30 tablet 02/07/17 08/16/18 Unknown Rx tab] Calcium Carbonate [Calcium] 500 mg PO TID #90 tablet 08/17/18 Unknown Rx Folic Acid [Folvite] 1 mg PO DAILY #30 tablet 08/17/18 Unknown Rx Gabapentin [Neurontin] 600 mg PO Q8HR #90 capsule 08/17/18 Unknown Rx Levothyroxine [Synthroid] 75 mcg PO QAM #30 tablet 08/17/18 Unknown Rx amLODIPine [Norvasc] 10 mg PO DAILY #30 tab 08/17/18 Unknown Rx hydroCHLOROthiazide [HCTZ] 25 mg PO QDAY #30 capsule 08/17/18 Unknown Rx Active Meds: Active Medications Amlodipine Besylate (Norvasc) 10 mg PO DAILY [facility] Last Admin: 08/17/18 09:51 Dose: 10 mg Enoxaparin Sodium (Lovenox) 40 mg SUB-Q QDAY@2200 [facility] Last Admin: 08/16/18 22:06 Dose: 40 mg Ferrous Gluconate (Fergon) 324 mg PO QDAY [facility] Last Admin: 08/17/18 09:51 Dose: 324 mg Folic Acid (Folvite) 1 mg PO DAILY [facility] Last Admin: 08/17/18 09:52 Dose: 1 mg Gabapentin (Neurontin) 600 mg PO Q8HR [facility] Last Admin: 08/17/18 14:17 Dose: 600 mg Hydrochlorothiazide (Hctz) 25 mg PO QDAY [facility] Last Admin: 08/17/18 09:52 Dose: 25 mg Levothyroxine Sodium (Synthroid) 75 mcg PO DAILY@0600 [facility] Last Admin: 08/17/18 05:48 Dose: 75 mcg Lorazepam (Ativan) 2 mg IV Q1HR PRN PRN Reason: CIWA-Ar 8-15 Last Admin: 08/17/18 08:38 Dose: 2 mg Lorazepam (Ativan) 4 mg IV Q1HR PRN PRN Reason: CIWA-Ar 16-25 Lorazepam (Ativan) 4 mg IV Q15MIN PRN PRN Reason: CIWA-Ar >25 Multivitamins (Theragran Tab) 1 each PO DAILY [facility] Last Admin: 08/17/18 09:52 Dose: 1 each Multivitamins/Minerals (Caltrate Plus) 1 each PO DAILY [facility] Last Admin: 08/17/18 09:51 Dose: 1 each Pneumococcal Polyvalent Vaccine (Pneumovax 23) 0.5 ml IM .ONCE ONE Stop: 08/17/18 16:01 Past psychiatric history - Past Medical History Past Medical History: hypertension Past Surgical History: No surgical history - past Psychiatric treatment and history psychiatric treatment history: Denies a psy hx and a fam psy hx. - Social History Social history: Lives alone Mental Status Exam - Vital signs Last Vital Signs Temp 98.3 F 08/17/18 05:55 Pulse 85 08/17/18 05:55 Resp 20 08/17/18 05:55 BP 141/92 08/17/18 05:55 Pulse Ox 95 08/17/18 05:55 - Exam Narrative exam: MSE: Appearance: calm, cooperative Behavior: regular eye contact Speech: regular rate and tone Mood: "well" Affect: congruent to mood Thought Process: linear Thought Content: denies SI/HI's and AVH's Motor Activity: ambulatory Cognition: A/O x 3 Insight: appropriate Judgment: appropriate Results Result Diagrams: 08/16/18 06:34 08/17/18 06:10 Abnormal lab results 08/17/18 Range/Units 06:10 Potassium 3.1 L D (3.6-5.0) mmol/L Chloride 97.9 L (98-107) mmol/L Glucose 103 H (65-100) mg/dL Calcium 5.7 L* (8.4-10.2) mg/dL Magnesium 1.60 L (1.7-2.3) mg/dL All other labs normal. Assessment and Plan Assessment and plan: Impression: R/O Alcohol Use DO. Today the patient is calm and cooperative during the assessment. DDx: R/O Mood DO Recommendation/Plan: The patient can follow up with [facility] for outpatient psy services.
[2018-08-17] MEDS ORDERED: PNEUMOVAX 23 IM ONE (16:00)
[2018-08-17] MEDS ORDERED: AFLURIA QUAD 2018-2019 SYRINGE IM ONE (16:00)
[2018-08-17 16:04] VITALS: BP 120/82
== END 2018-08-17 18:00 | disposition home or self-care (01) | DRG 641 ==
LOC: ED 05:19 → 3A 07:56
PROVIDERS: ADMIT Internal Medicine; ATTEND Internal Medicine
PROC: 3E0234Z Introduction of Serum, Toxoid and Vaccine into Muscle, Percutaneous Approach (ICD-10-PCS; principal; 2018-08-17)
DX: E83.42 Hypomagnesemia (principal); F10.239 Alcohol dependence with withdrawal, unspecified; E83.51 Hypocalcemia; I10 Essential (primary) hypertension; E89.0 Postprocedural hypothyroidism; E11.9 Type 2 diabetes mellitus without complications; Z23 Encounter for immunization; Z79.899 Other long term (current) drug therapy
CPT/HCPCS: 36415; 70450; 71046; 80048; 80074; 80307; 80320; 81001; 82550; 83735; 83880; 85025; 90686; 90732; 93005; 93010; 93970; G0480; J0610; J1650; J2060; J3411; J3475; J7030

== ENCOUNTER 2019-03-29 13:24 | Inpatient (IN) | payer SELFPAY ==
--- NOTE | 2019-03-29 14:04 | Emergency Department Report ---
Blank Doc - Documentation Documentation: 53 y/o female reports having a fall now having bilateral calf numbness. Patient reports she can't move her legs.
[2019-03-29] MEDS ORDERED: NACL 0.9% 1000 ML 1,000 ML IV ONE (18:41)
[2019-03-29] MEDS ORDERED: LIBRIUM PO ONE ×2 (18:41→21:00)
[2019-03-29] MEDS ORDERED: ZOFRAN ODT PO ONE (18:41)
--- NOTE | 2019-03-29 18:52 | Emergency Department Report ---
ED General Adult HPI - General Chief complaint: Dizziness Stated complaint: CRAMPS/PAIN Time Seen by Provider: 03/29/19 18:28 Source: patient, EMS Mode of arrival: Wheelchair Limitations: No Limitations - History of Present Illness Initial comments: Mrs. Hoffmann is a 53 yo female with hx of alcoholism, anemia, fatty liver, hypomagnesemia, homelessness who presents with muscle cramps. Muscle cramps improved after receiving fluid per EMS. She last drank beer last night. She desires medication for her "nerves". -: Gradual, This afternoon Location: left, right, lower extremity (bilateral calvese) Quality: other (cramping) Consistency: now resolved Improves with: rest Worsens with: movement Associated Symptoms: other (feels anxious, last drink of alcohol occurred last night) - Related Data Previous Rx's Medication Instructions Recorded Last Taken Type Multivitamins-Mineral [Theragran-M] 1 each PO DAILY 30 Days tablet 01/08/14 1 Day Ago Rx ~11/08/15 Calcium Carbonate/Vitamin D3 1 tab PO QDAY #30 tablet 12/18/15 Unknown Rx [Calcium 600-Vit D3 800 Tablet] Ferrous Gluconate [Fergon 325 MG 324 mg PO QDAY #30 tablet 02/07/17 Unknown Rx tab] Calcium Carbonate [Calcium] 500 mg PO TID #90 tablet 08/17/18 Unknown Rx Folic Acid [Folvite] 1 mg PO DAILY #30 tablet 08/17/18 Unknown Rx Gabapentin [Neurontin] 600 mg PO Q8HR #90 capsule 08/17/18 Unknown Rx Levothyroxine [Synthroid] 75 mcg PO QAM #30 tablet 08/17/18 Unknown Rx amLODIPine [Norvasc] 10 mg PO DAILY #30 tab 08/17/18 Unknown Rx hydroCHLOROthiazide [HCTZ] 25 mg PO QDAY #30 capsule 08/17/18 Unknown Rx Amlodipine Besylate [Norvasc] 10 mg PO DAILY #30 tablet 03/10/19 Unknown Rx Furosemide [Lasix] 20 mg PO QDAY #30 tablet 03/10/19 Unknown Rx Gabapentin [Neurontin] 300 mg PO Q8HR #90 capsule 03/10/19 Unknown Rx Metoprolol [Lopressor] 25 mg PO BID #60 tablet 03/10/19 Unknown Rx chlordiazePOXIDE [Librium] 25 mg PO Q6H 5 Days #20 capsule 03/29/19 Unknown Rx Allergies Allergy/AdvReac Type Severity Reaction Status Date / Time No Known Allergies Allergy Verified 03/29/19 13:28 ED Review of Systems ROS: Stated complaint: CRAMPS/PAIN Other details as noted in HPI Comment: All other systems reviewed and negative Constitutional: denies: fever, malaise Cardiovascular: denies: chest pain ED Past Medical Hx - Past Medical History Previous Medical History?: Yes Hx Hypertension: Yes Hx Congestive Heart Failure: No Hx Diabetes: Yes (BORDERLINE) Hx Sickle Cell Disease: No Hx Seizures: No Hx Kidney Stones: Yes Hx Asthma: No Hx COPD: No Hx HIV: No Additional medical history: anemia. low calcium. Hypothyroidism. ALCOHOLIC - Surgical History Past Surgical History?: Yes Additional Surgical History: thyroid and parathyroid removed - Social History Smoking Status: Never Smoker Substance Use Type: Alcohol (drinks beer daily) - Medications Home Medications: Home Medications Medication Instructions Recorded Confirmed Last Taken Type Multivitamins-Mineral [Theragran-M] 1 each PO DAILY 30 Days tablet 01/08/14 08/16/18 1 Day Ago Rx ~11/08/15 Calcium Carbonate/Vitamin D3 1 tab PO QDAY #30 tablet 12/18/15 08/16/18 Unknown Rx [Calcium 600-Vit D3 800 Tablet] Ferrous Gluconate [Fergon 325 MG 324 mg PO QDAY #30 tablet 02/07/17 08/16/18 Unknown Rx tab] Calcium Carbonate [Calcium] 500 mg PO TID #90 tablet 08/17/18 Unknown Rx Folic Acid [Folvite] 1 mg PO DAILY #30 tablet 08/17/18 Unknown Rx Gabapentin [Neurontin] 600 mg PO Q8HR #90 capsule 08/17/18 Unknown Rx Levothyroxine [Synthroid] 75 mcg PO QAM #30 tablet 08/17/18 Unknown Rx amLODIPine [Norvasc] 10 mg PO DAILY #30 tab 08/17/18 Unknown Rx hydroCHLOROthiazide [HCTZ] 25 mg PO QDAY #30 capsule 08/17/18 Unknown Rx Amlodipine Besylate [Norvasc] 10 mg PO DAILY #30 tablet 03/10/19 Unknown Rx Furosemide [Lasix] 20 mg PO QDAY #30 tablet 03/10/19 Unknown Rx Gabapentin [Neurontin] 300 mg PO Q8HR #90 capsule 03/10/19 Unknown Rx Metoprolol [Lopressor] 25 mg PO BID #60 tablet 03/10/19 Unknown Rx chlordiazePOXIDE [Librium] 25 mg PO Q6H 5 Days #20 capsule 03/29/19 Unknown Rx ED Physical Exam - General Limitations: No Limitations General appearance: alert, in no apparent distress, other (appears chronically ill) - Head Head exam: Present: atraumatic, normocephalic - Eye Eye exam: Present: normal appearance, conjunctival injection - ENT ENT exam: Present: mucous membranes dry - Neck Neck exam: Present: normal inspection, full ROM. Absent: tenderness, meningismus - Respiratory Respiratory exam: Present: normal lung sounds bilaterally. Absent: respiratory distress, wheezes, rales, rhonchi - Cardiovascular Cardiovascular Exam: Present: regular rate, normal rhythm, normal heart sounds. Absent: systolic murmur, diastolic murmur, rubs, gallop - GI/Abdominal GI/Abdominal exam: Present: soft, normal bowel sounds. Absent: distended, tenderness, guarding, rebound - Extremities Exam Extremities exam: Present: normal inspection - Neurological Exam Neurological exam: Present: alert, oriented X3 - Psychiatric Psychiatric exam: Present: normal affect, normal mood - Skin Skin exam: Present: warm, dry, intact, normal color. Absent: rash ED Course Vital Signs 03/29/19 03/29/19 03/29/19 13:57 18:30 20:27 Temperature 98.7 F 98.0 F Pulse Rate 98 H 89 86 Respiratory 16 16 20 Rate Blood Pressure 139/86 Blood Pressure 149/92 142/78 [Left] O2 Sat by Pulse 97 98 99 Oximetry ED Medical Decision Making - Lab Data Result diagrams: 03/29/19 19:11 - EKG Data 03/29/19 20:35 EKG obtained 1344 Sinus tachycardia rate 100 beats a minute left axis deviation and prolonged QT interval 513 ms nonspecific T-wave flattening no ST elevation - Medical Decision Making Ms. Hoffmann Presents with muscle cramps. Diagnosis: Rhabdomyolysis, complicated by hypocalcemia History of alcoholism and homelessness, Ms. Hoffmann is a high risk of immobilization and poor hydration. Critical care attestation.: If time is entered above; I have spent that time in minutes in the direct care of this critically ill patient, excluding procedure time. ED Disposition Clinical Impression: Rhabdomyolysis, Hypocalcemia, Alcoholism Disposition: DC-[id number] OP ADMIT IP TO THIS HOSP Is pt being admited?: No Does the pt Need Aspirin: No Condition: Stable Prescriptions: chlordiazePOXIDE [Librium] 25 mg PO Q6H 5 Days #20 capsule
[2019-03-29 19:36] LABS: BUN/Creatinine Ratio 10; Blood Urea Nitrogen 7 mg/dL (7-17); Hemolysis Index 18
[2019-03-29 19:58] LABS: Calcium 5.7 mg/dL (8.4-10.2)
[2019-03-29 20:53] LABS: Basophils # (Auto) 0.1 K/mm3 (0.0-0.1); Basophils % (Auto) 0.5 % (0.0-1.8); Eosinophils % (Auto) 0.3 % (0.0-4.3); Hematocrit 36.6 % (30.3-42.9); Lymphocytes # (Auto) 1.7 K/mm3 (1.2-5.4); Lymphocytes % (Auto) 13.8 % (13.4-35.0); Mean Corpuscular HGB Conc 36 % (30-34); Mean Corpuscular Volume 95 fl (79-97); Monocytes # (Auto) 0.8 K/mm3 (0.0-0.8); Monocytes % (Auto) 6.5 % (0.0-7.3); Platelet Count 339 K/mm3 (140-440); Red Blood Count 3.86 M/mm3 (3.65-5.03); Red Cell Distribution Width 13.1 % (13.2-15.2)
[2019-03-29] MEDS ORDERED: K-DUR PO ONE (22:30)
[2019-03-29] MEDS ORDERED: PERCOCET 5/325 PO PRN (22:33)
[2019-03-29] MEDS ORDERED: ZOFRAN IV PRN (22:33)
[2019-03-29] MEDS ORDERED: SODIUM CHLORIDE FLUSH SYRINGE 10 ML IV PRN (22:33)
[2019-03-29] MEDS ORDERED: TYLENOL PO PRN (22:33)
[2019-03-29] MEDS ORDERED: ATIVAN IV PRN ×2 (22:38)
[2019-03-29] MEDS: KCL 10MEQ/100ML 10 MEQ/100 ML BAG IV SCH (22:51)
[2019-03-29] MEDS ORDERED: IBUPROFEN PO PRN (22:53)
[2019-03-29] MEDS ORDERED: ROXICODONE PO PRN (22:54)
--- NOTE | 2019-03-29 23:23 | XRay Report ---
PROCEDURE: XR CHEST ROUTINE 2V TECHNIQUE: PA and lateral chest HISTORY: dyspnea COMPARISONS: Chest x-ray August 16, 2018 FINDINGS: Trachea midline. Heart size normal. No pneumothorax. No effusion. No acute airspace disease No acute bony abnormality IMPRESSION: No active pulmonary disease.. This document is electronically signed by Lenny Babcock MD., Mar 29 2019 11:21:45 PM ET
[2019-03-29 23:26] LABS: Alanine Aminotransferase 20 units/L (7-56); Albumin 3.6 g/dL (3.9-5)
[2019-03-29 23:38] LABS: Bilirubin,Direct < 0.2 mg/dL (0-0.2)
[2019-03-30 00:03] LABS: INR 1.03 (0.87-1.13)
[2019-03-30] MEDS ORDERED: CALCIUM GLUCONATE 2,000 MG in NACL 0.9% 100 ML IV ONE (00:40)
[2019-03-30] MEDS ORDERED: MAGNESIUM SULFATE 2GM/50ML 2 GM/50 ML BAG IV ONE (00:45)
--- NOTE | 2019-03-30 00:52 | History and Physical Report ---
History of Present Illness Date of examination: 03/29/19 Date of admission: 03/29/19 22:33 Chief complaint: Generalized weakness History of present illness: Patient is a 53 year old -[place] female with history of hypothyroidism and hypocalcemia secondary to hypoparathyroidism who presented to the ED on account of a day history of generalized weakness with poor mobility. She has positive history of leg swelling, muscle cramps, numbness in legs, chills w ithout fever, shortness of breath on mild exertion, lightheadedness. She denies chest pain, palpitation, soft bruit, runny nose or congestion, cough, fever, chills, orthopnea or PND. No headaches, nausea, vomiting, syncope or loss of consciousness. She admits to urinary frequency but no dysuria, abdominal pain, constipation, diarrhea or bleeding from any orifice. Of note, patient reported that she's been doing some walking lately. Past History Past Medical History: hypertension, hypothyroidism, other (hypocalcemia secondary to hypoparathyroidism, peripheral neuropathy) Past Surgical History: thyroidectomy Social history: alcohol abuse (10 years history of alcohol abuse. She drinks 4 bottles of 24 ounces of beer daily and her last drink was yesterday. She denies tobacco or illicit drug use) Family history: other (reviewed and noncontributory) Medications and Allergies Allergies Allergy/AdvReac Type Severity Reaction Status Date / Time No Known Allergies Allergy Verified 03/29/19 13:28 Home Medications Medication Instructions Recorded Confirmed Last Taken Type Multivitamins-Mineral [Theragran-M] 1 each PO DAILY 30 Days tablet 01/08/14 08/16/18 1 Day Ago Rx ~11/08/15 Calcium Carbonate/Vitamin D3 1 tab PO QDAY #30 tablet 12/18/15 08/16/18 Unknown Rx [Calcium 600-Vit D3 800 Tablet] Ferrous Gluconate [Fergon 325 MG 324 mg PO QDAY #30 tablet 02/07/17 08/16/18 Unknown Rx tab] Calcium Carbonate [Calcium] 500 mg PO TID #90 tablet 08/17/18 Unknown Rx Folic Acid [Folvite] 1 mg PO DAILY #30 tablet 08/17/18 Unknown Rx Gabapentin [Neurontin] 600 mg PO Q8HR #90 capsule 08/17/18 Unknown Rx Levothyroxine [Synthroid] 75 mcg PO QAM #30 tablet 08/17/18 Unknown Rx amLODIPine [Norvasc] 10 mg PO DAILY #30 tab 08/17/18 Unknown Rx hydroCHLOROthiazide [HCTZ] 25 mg PO QDAY #30 capsule 08/17/18 Unknown Rx Amlodipine Besylate [Norvasc] 10 mg PO DAILY #30 tablet 03/10/19 Unknown Rx Furosemide [Lasix] 20 mg PO QDAY #30 tablet 03/10/19 Unknown Rx Gabapentin [Neurontin] 300 mg PO Q8HR #90 capsule 03/10/19 Unknown Rx Metoprolol [Lopressor] 25 mg PO BID #60 tablet 03/10/19 Unknown Rx chlordiazePOXIDE [Librium] 25 mg PO Q6H 5 Days #20 capsule 03/29/19 Unknown Rx Active Meds: Active Medications Calcium/Vitamin D (Oysco D 500 Mg-200 Unit) 2 each PO BID SUSAN Folic Acid (Folvite) 1 mg PO QDAY SUSAN Potassium Chloride (Kcl 10meq/100ml) 10 meq in 100 mls @ 100 mls/hr IV Q1H SUSAN Stop: 03/30/19 02:59 Sodium Chloride (Nacl 0.9% 1000 Ml) 1,000 mls @ 100 mls/hr IV DIRECT SUSAN Calcium Gluconate 2,000 mg/ (Sodium Chloride) 120 mls @ 660 mls/hr IV ONCE ONE Stop: 03/30/19 00:50 Magnesium Sulfate (Magnesium Sulfate 2gm/50ml) 2 gm in 50 mls @ 25 mls/hr IV ONCE ONE Stop: 03/30/19 02:44 Ibuprofen (Motrin) 400 mg PO Q6H PRN PRN Reason: Pain, Mild (1-3) Lorazepam (Ativan) 2 mg IV Q1H PRN PRN Reason: CIWA-Ar 8-15 Lorazepam (Ativan) 4 mg IV Q1H PRN PRN Reason: CIWA-Ar 16-25 Multivitamins (Theragran Tab) 1 each PO QDAY SUSAN Ondansetron HCl (Zofran) 4 mg IV Q8H PRN PRN Reason: Nausea And Vomiting Oxycodone HCl (Roxicodone) 5 mg PO Q4H PRN PRN Reason: Pain, Moderate (4-6) Sodium Chloride (Sodium Chloride Flush Syringe 10 Ml) 10 ml IV BID SUSAN Sodium Chloride (Sodium Chloride Flush Syringe 10 Ml) 10 ml IV PRN PRN PRN Reason: LINE FLUSH Thiamine HCl (Vitamin B-1) 100 mg PO QDAY SUSAN Review of Systems All systems: negative (except as documented in the HPI, all other systems were reviewed and negative) Exam - Constitutional Vitals: Temp Pulse Resp BP Pulse Ox 97.9 F 88 16 136/87 98 03/29/19 23:44 03/29/19 23:44 03/29/19 23:44 03/29/19 23:44 03/29/19 23:44 General appearance: Present: no acute distress, obese - EENT Eyes: Present: PERRL, EOM intact, scleral icterus ENT: hearing intact, clear oral mucosa - Neck Neck: Present: supple, normal ROM - Respiratory Respiratory effort: normal Respiratory: bilateral: CTA - Cardiovascular Rhythm: regular Heart Sounds: Present: S1 & S2. Absent: rub, click - Extremities Extremities: pulses symmetrical Extremity abnormal: edema (in bilateral lower extremities) Peripheral Pulses: within normal limits - Abdominal General gastrointestinal: Present: soft, non-tender, non-distended, normal bowel sounds Female genitourinary: Present: normal - Integumentary Integumentary: Present: clear, warm, dry - Musculoskeletal Musculoskeletal: gait normal, strength equal bilaterally - Psychiatric Psychiatric: appropriate mood/affect, intact judgment & insight - Neurologic Neurologic: CNII-XII intact, moves all extremities Results - Labs CBC & Chem 7: 03/29/19 20:47 03/29/19 19:11 Labs: Laboratory Last Values WBC 12.5 K/mm3 (4.5-11.0) H 03/29/19 20:47 RBC 3.86 M/mm3 (3.65-5.03) 03/29/19 20:47 Hgb 13.0 gm/dl (10.1-14.3) 03/29/19 20:47 Hct 36.6 % (30.3-42.9) 03/29/19 20:47 MCV 95 fl (79-97) 03/29/19 20:47 MCH 34 pg (28-32) H 03/29/19 20:47 MCHC 36 % (30-34) H 03/29/19 20:47 RDW 13.1 % (13.2-15.2) L 03/29/19 20:47 Plt Count 339 K/mm3 (140-440) 03/29/19 20:47 Lymph % (Auto) 13.8 % (13.4-35.0) 03/29/19 20:47 [place] % (Auto) 6.5 % (0.0-7.3) 03/29/19 20:47 Eos % (Auto) 0.3 % (0.0-4.3) 03/29/19 20:47 Baso % (Auto) 0.5 % (0.0-1.8) 03/29/19 20:47 Lymph # 1.7 K/mm3 (1.2-5.4) 03/29/19 20:47 [place] # 0.8 K/mm3 (0.0-0.8) 03/29/19 20:47 Eos # 0.0 K/mm3 (0.0-0.4) 03/29/19 20:47 Baso # 0.1 K/mm3 (0.0-0.1) 03/29/19 20:47 Seg Neutrophils % 78.9 % (40.0-70.0) H 03/29/19 20:47 Seg Neutrophils # 9.8 K/mm3 (1.8-7.7) H 03/29/19 20:47 PT 14.1 Sec. (12.2-14.9) 03/29/19 23:18 INR 1.03 (0.87-1.13) 03/29/19 23:18 Sodium 139 mmol/L (137-145) 03/29/19 19:11 Potassium 3.0 mmol/L (3.6-5.0) L 03/29/19 19:11 Chloride 95.5 mmol/L (98-107) L 03/29/19 19:11 Carbon Dioxide 26 mmol/L (22-30) 03/29/19 19:11 21 mmol/L 03/29/19 19:11 BUN 7 mg/dL (7-17) 03/29/19 19:11 0.7 mg/dL (0.7-1.2) 03/29/19 19:11 Estimated GFR > 60 ml/min 03/29/19 19:11 10 % 03/29/19 19:11 Glucose 100 mg/dL (65-100) 03/29/19 19:11 Lactic Acid 1.10 mmol/L (0.7-2.0) 03/29/19 23:18 Calcium 5.7 mg/dL (8.4-10.2) L* 03/29/19 19:11 Magnesium 1.60 mg/dL (1.7-2.3) L 03/29/19 22:35 0.40 mg/dL (0.1-1.2) 03/29/19 22:35 < 0.2 mg/dL (0-0.2) 03/29/19 22:35 0.2 mg/dL 03/29/19 22:35 AST 39 units/L (5-40) 03/29/19 22:35 ALT 20 units/L (7-56) 03/29/19 22:35 70 units/L (35-129) 03/29/19 22:35 795 units/L (30-135) H 03/29/19 19:11 < 0.010 ng/mL (0.00-0.029) 03/29/19 23:18 7.8 g/dL (6.3-8.2) 03/29/19 22:35 3.6 g/dL (3.9-5) L 03/29/19 22:35 0.9 % 03/29/19 22:35 TSH 18.240 mlU/mL (0.270-4.200) H 03/29/19 23:18 Free T4 0.91 ng/dL (0.76-1.46) 03/29/19 23:18 PTH Intact 5.19 pg/mL (15-65) L 03/29/19 22:35 Assessment and Plan Assessment and plan: Chronic hypocalcemia in hypoparathyroidism -Corrected calcium level is 6 -We'll give IV calcium gluconate -Patient will be placed on maintenance oral calcium/vitamin D supplements Rhabdomyolysis -On IV fluid, will monitor CK level Hypokalemia and hypomagnesemia -On repletion, will monitor levels SIRS -Probably due to noninfectious process -Chest x-ray negative, urinalysis pending Hypothyroidism -Resume Synthroid Hypertension -Stable -On antihypertensives, adjust as needed History of alcohol dependence -On CIWA protocol -Patient once again counseled on cessation Morbid obesity with BMI of 41.2 -Lifetime modification recommended DVT prophylaxis with SCD Disposition: For discharge when medically stable
[2019-03-30 00:54] LABS: Bilirubin,Urine NEG (Negative); Blood,Urine SM (Negative); Color,Urine Straw (Yellow); Hyaline Casts,Urine 1 /LPF; Protein,Urine <15 mg/dL mg/dL (Negative); RBC,Urine < 1.0 /HPF (0.0-6.0); Urobilinogen,Urine < 2.0 mg/dL (<2.0); WBC,Urine < 1.0 /HPF (0.0-6.0)
[2019-03-30] MEDS ORDERED: APRESOLINE IV PRN (01:18)
[2019-03-30 01:36] LABS: Calcium 5.7 mg/dL (8.4-10.2)
[2019-03-30] MEDS ORDERED: NACL 0.9% 500 ML 500 ML ONE (02:05)
[2019-03-30] MEDS: KCL 10MEQ/100ML 10 MEQ/100 ML BAG IV SCH ×3 (04:06→10:11)
[2019-03-30 06:16] LABS: BUN/Creatinine Ratio 8; Blood Urea Nitrogen 6 mg/dL (7-17); Calcium 6.3 mg/dL (8.4-10.2); Hemolysis Index 17
[2019-03-30] MEDS ORDERED: K-DUR PO ONE ×3 (06:35→17:34)
[2019-03-30] MEDS: NACL 0.9% 1000 ML 1,000 ML IV SCH ×2 (07:48→19:37)
--- NOTE | 2019-03-30 09:51 | Progress Note ---
Assessment and Plan Assessment and plan: --Hypokalemia and hypomagnesemia Replenish Per protocol and monitor levels --Chronic hypocalcemia in hypoparathyroidism Corrected calcium level is 6, improved s/p IV calcium gluconate, oral calcium/vitamin D --Rhabdomyolysis; CK levels trending down Continue IV fluid, will monitor CK level --SIRS; Probably due to noninfectious process Chest x-ray negative, urinalysis pending --Hypothyroidism; continue Synthroid --Hypertension; well controlled on antihypertensives, PRN medications --History of alcohol dependence/alcohol withdrawal Continue CIWA protocol, Advised to quit alcohol use Life Style modification recommended --DVT prophylaxis with SCD Disposition: Possible discharge in 1-2 days if stable Plan of care reviewed with the patient and her nurse History Interval history: Patient seen and examined medical records reviewed no new events reported by nursing staff Vital signs noted Hospitalist Physical - Constitutional Vitals: Temp Pulse Resp BP Pulse Ox 98.2 F 78 16 138/78 98 03/30/19 05:51 03/30/19 05:51 03/30/19 05:51 03/30/19 05:51 03/30/19 05:51 General appearance: Present: no acute distress, well-nourished, obese - EENT Eyes: Present: PERRL, EOM intact - Neck Neck: Present: supple, normal ROM - Respiratory Respiratory effort: normal Respiratory: bilateral: diminished, negative: rales, rhonchi, wheezing - Cardiovascular Rhythm: regular Heart Sounds: Present: S1 & S2 - Extremities Extremities: no ischemia, No edema - Abdominal General gastrointestinal: soft, non-tender, non-distended, normal bowel sounds - Integumentary Integumentary: Present: clear, warm - Psychiatric Psychiatric: appropriate mood/affect, cooperative - Neurologic Neurologic: CNII-XII intact, moves all extremities Results - Labs CBC & Chem 7: 03/29/19 20:47 03/30/19 13:15 Labs: Laboratory Last Values WBC 12.5 K/mm3 (4.5-11.0) H 03/29/19 20:47 RBC 3.86 M/mm3 (3.65-5.03) 03/29/19 20:47 Hgb 13.0 gm/dl (10.1-14.3) 03/29/19 20:47 Hct 36.6 % (30.3-42.9) 03/29/19 20:47 MCV 95 fl (79-97) 03/29/19 20:47 MCH 34 pg (28-32) H 03/29/19 20:47 MCHC 36 % (30-34) H 03/29/19 20:47 RDW 13.1 % (13.2-15.2) L 03/29/19 20:47 Plt Count 339 K/mm3 (140-440) 03/29/19 20:47 Lymph % (Auto) 13.8 % (13.4-35.0) 03/29/19 20:47 [place] % (Auto) 6.5 % (0.0-7.3) 03/29/19 20:47 Eos % (Auto) 0.3 % (0.0-4.3) 03/29/19 20:47 Baso % (Auto) 0.5 % (0.0-1.8) 03/29/19 20:47 Lymph # 1.7 K/mm3 (1.2-5.4) 03/29/19 20:47 [place] # 0.8 K/mm3 (0.0-0.8) 03/29/19 20:47 Eos # 0.0 K/mm3 (0.0-0.4) 03/29/19 20:47 Baso # 0.1 K/mm3 (0.0-0.1) 03/29/19 20:47 Seg Neutrophils % 78.9 % (40.0-70.0) H 03/29/19 20:47 Seg Neutrophils # 9.8 K/mm3 (1.8-7.7) H 03/29/19 20:47 PT 14.1 Sec. (12.2-14.9) 03/29/19 23:18 INR 1.03 (0.87-1.13) 03/29/19 23:18 Sodium 139 mmol/L (137-145) 03/30/19 05:17 Potassium 2.8 mmol/L (3.6-5.0) L* 03/30/19 05:17 Chloride 95.8 mmol/L (98-107) L 03/30/19 05:17 Carbon Dioxide 29 mmol/L (22-30) 03/30/19 05:17 17 mmol/L 03/30/19 05:17 BUN 6 mg/dL (7-17) L 03/30/19 05:17 0.8 mg/dL (0.7-1.2) 03/30/19 05:17 Estimated GFR > 60 ml/min 03/30/19 05:17 8 % 03/30/19 05:17 Glucose 113 mg/dL (65-100) H 03/30/19 05:17 Lactic Acid 1.10 mmol/L (0.7-2.0) 03/29/19 23:18 Calcium 6.3 mg/dL (8.4-10.2) L 03/30/19 05:17 Phosphorus 3.70 mg/dL (2.5-4.5) 03/30/19 00:57 Magnesium 2.50 mg/dL (1.7-2.3) H 03/30/19 05:17 0.40 mg/dL (0.1-1.2) 03/29/19 22:35 < 0.2 mg/dL (0-0.2) 03/29/19 22:35 0.2 mg/dL 03/29/19 22:35 AST 39 units/L (5-40) 03/29/19 22:35 ALT 20 units/L (7-56) 03/29/19 22:35 70 units/L (35-129) 03/29/19 22:35 1291 units/L (30-135) H 03/30/19 05:17 < 0.010 ng/mL (0.00-0.029) 03/29/19 23:18 7.8 g/dL (6.3-8.2) 03/29/19 22:35 3.6 g/dL (3.9-5) L 03/29/19 22:35 0.9 % 03/29/19 22:35 TSH 18.240 mlU/mL (0.270-4.200) H 03/29/19 23:18 Free T4 0.91 ng/dL (0.76-1.46) 03/29/19 23:18 PTH Intact 5.19 pg/mL (15-65) L 03/29/19 22:35 Straw (Yellow) 03/29/19 22:36 Clear (Clear) 03/29/19 22:36 8.0 (5.0-7.0) H 03/29/19 22:36 Ur Specific [place] 1.006 (1.003-1.030) 03/29/19 22:36 <15 mg/dl mg/dL (Negative) 03/29/19 22:36 Neg mg/dL (Negative) 03/29/19 22:36 Neg mg/dL (Negative) 03/29/19 22:36 Sm (Negative) 03/29/19 22:36 Neg (Negative) 03/29/19 22:36 Neg (Negative) 03/29/19 22:36 < 2.0 mg/dL (<2.0) 03/29/19 22:36 Ur Leukocyte Esterase Neg (Negative) 03/29/19 22:36 < 1.0 /HPF (0.0-6.0) 03/29/19 22:36 < 1.0 /HPF (0.0-6.0) 03/29/19 22:36 U Epithel Cells (Auto) 1.0 /HPF (0-13.0) 03/29/19 22:36 Hyaline Casts 1 /LPF 03/29/19 22:36 Active Medications - Current Medications Current Medications: Generic Name Dose Route Start Last Admin Trade Name Freq PRN Reason Stop Dose Admin Amlodipine Besylate 10 mg 03/30/19 10:00 Norvasc PO QDAY [facility] Calcium Carbonate/Glycine 500 mg 03/30/19 14:00 Oscal PO TID [facility] Calcium/Vitamin D 2 each 03/30/19 10:00 Oysco D 500 Mg-200 Unit PO BID [facility] Ferrous Gluconate 324 mg 03/30/19 10:00 Fergon PO QDAY [facility] Folic Acid 1 mg 03/30/19 10:00 Folvite PO QDAY [facility] Furosemide 20 mg 03/30/19 10:00 Lasix PO QDAY [facility] Gabapentin 300 mg 03/30/19 14:00 Neurontin PO Q8HR SUSAN Hydralazine HCl 10 mg 03/30/19 01:18 Apresoline IV Q4HR PRN Blood Pressure Hydrochlorothiazide 25 mg 03/30/19 10:00 Hctz PO QDAY [facility] Sodium Chloride 1,000 mls @ 100 mls/hr 03/29/19 23:00 03/30/19 07:48 Nacl 0.9% 1000 Ml IV 100 mls/hr DIRECT SUSAN Administration Ibuprofen 400 mg 03/29/19 22:53 Motrin PO Q6H PRN Pain, Mild (1-3) Levothyroxine Sodium 75 mcg 03/30/19 10:00 Synthroid PO QAM SUSAN Lorazepam 2 mg 03/29/19 22:38 Ativan IV Q1H PRN CIWA-Ar 8-15 Lorazepam 4 mg 03/29/19 22:38 Ativan IV Q1H PRN CIWA-Ar 16-25 Metoprolol Tartrate 25 mg 03/30/19 10:00 Lopressor PO BID [facility] Miscellaneous Medication 1 tab 03/30/19 10:00 Calcium Carbonate/Vitamin D3 [Calcium 600-Vit D3 800 Tablet] PO QDAY [facility] Multivitamins 1 each 03/30/19 10:00 Theragran Tab PO QDAY [facility] Ondansetron HCl 4 mg 03/29/19 22:33 Zofran IV Q8H PRN Nausea And Vomiting Oxycodone HCl 5 mg 03/29/19 22:54 Roxicodone PO Q4H PRN Pain, Moderate (4-6) Potassium Chloride 40 meq 03/30/19 11:00 K-Dur PO 03/30/19 11:01 ONCE ONE Sodium Chloride 10 ml 03/30/19 10:00 Sodium Chloride Flush Syringe 10 Ml IV BID [facility] Sodium Chloride 10 ml 03/29/19 22:33 Sodium Chloride Flush Syringe 10 Ml IV PRN PRN LINE FLUSH Thiamine HCl 100 mg 03/30/19 10:00 Vitamin B-1 PO QDAY [facility]
[2019-03-30] MEDS ORDERED: VITAMIN D3 PO SCH (10:00)
[2019-03-30] MEDS ORDERED: SYNTHROID PO SCH (10:00)
[2019-03-30] MEDS ORDERED: CALCIUM CARBONATE PO SCH (10:00)
[2019-03-30] MEDS: LASIX PO SCH (10:09)
[2019-03-30] MEDS: OYSCO D 500 MG-200 UNIT PO SCH ×2 (10:09→22:22)
[2019-03-30] MEDS: HCTZ PO SCH (10:09)
[2019-03-30] MEDS: SYNTHROID PO SCH (10:09)
[2019-03-30] MEDS: NORVASC PO SCH (10:10)
[2019-03-30] MEDS: THERAGRAN Tab PO SCH (10:10)
[2019-03-30] MEDS: FOLVITE PO SCH (10:10)
[2019-03-30] MEDS: SODIUM CHLORIDE FLUSH SYRINGE 10 ML IV SCH ×2 (10:10→22:24)
[2019-03-30] MEDS: VITAMIN B-1 PO SCH (10:11)
[2019-03-30] MEDS: NEURONTIN PO SCH ×2 (13:52→22:22)
[2019-03-30] MEDS: OSCAL PO SCH ×2 (13:53→22:21)
[2019-03-30] MEDS: FERGON PO SCH (13:53)
[2019-03-30] MEDS: LOPRESSOR PO SCH ×2 (13:54→22:22)
[2019-03-31] MEDS: NACL 0.9% 1000 ML 1,000 ML IV SCH ×3 (05:10→23:24)
[2019-03-31] MEDS: NEURONTIN PO SCH ×3 (05:10→21:30)
[2019-03-31] MEDS: SYNTHROID PO SCH (05:10)
[2019-03-31 05:26] LABS: Basophils % (Auto) 0.6 % (0.0-1.8); Eosinophils # (Auto) 0.1 K/mm3 (0.0-0.4); Eosinophils % (Auto) 0.9 % (0.0-4.3); Hematocrit 36.2 % (30.3-42.9); Lymphocytes % (Auto) 25.6 % (13.4-35.0); Mean Corpuscular HGB Conc 33 % (30-34); Mean Corpuscular Volume 97 fl (79-97); Monocytes # (Auto) 0.6 K/mm3 (0.0-0.8); Monocytes % (Auto) 8.2 % (0.0-7.3); Platelet Count 307 K/mm3 (140-440); Red Blood Count 3.74 M/mm3 (3.65-5.03); Red Cell Distribution Width 13.1 % (13.2-15.2)
[2019-03-31 05:50] LABS: BUN/Creatinine Ratio 10; Blood Urea Nitrogen 8 mg/dL (7-17); Hemolysis Index 10
[2019-03-31 05:58] LABS: Calcium 5.8 mg/dL (8.4-10.2)
[2019-03-31] MEDS ORDERED: CALCIUM CHLORIDE IVP ONE (06:13)
[2019-03-31] MEDS ORDERED: CALCIUM CHLORIDE 1,000 MG in NACL 0.9% 100 ML IV ONE (06:30)
[2019-03-31] MEDS: OSCAL PO SCH (08:55)
[2019-03-31] MEDS: NORVASC PO SCH (09:41)
[2019-03-31] MEDS: VITAMIN B-1 PO SCH (09:41)
[2019-03-31] MEDS: OYSCO D 500 MG-200 UNIT PO SCH ×2 (09:41→21:30)
[2019-03-31] MEDS: LOPRESSOR PO SCH ×2 (09:41→21:30)
[2019-03-31] MEDS: LASIX PO SCH (09:41)
[2019-03-31] MEDS: FERGON PO SCH (09:41)
[2019-03-31] MEDS: THERAGRAN Tab PO SCH (09:41)
[2019-03-31] MEDS: FOLVITE PO SCH (09:41)
--- NOTE | 2019-03-31 09:41 | Progress Note ---
Assessment and Plan Assessment and plan: --Hypokalemia and hypomagnesemia Replenish Per protocol and monitor levels --Chronic hypocalcemia in hypoparathyroidism Corrected calcium level is 6, improved s/p IV calcium gluconate, oral calcium/vitamin D IV calcium when necessary, consider nephrology consult if no improvement --Rhabdomyolysis; CK levels trending down Continue IV fluid, will monitor CK level --SIRS; Probably due to noninfectious process Chest x-ray negative, urinalysis pending --Hypothyroidism; continue Synthroid --Hypertension; well controlled on antihypertensives, PRN medications --History of alcohol dependence/alcohol withdrawal Continue CIWA protocol, Advised to quit alcohol use Life Style modification recommended --DVT prophylaxis with SCD Disposition: Possible discharge in 1-2 days if stable Plan of care reviewed with the patient and her nurse History Interval history: Patient seen and examined medical records reviewed No new events reported Patient feels better, calcium levels are labile Receiving when necessary IV calcium Vital signs noted Hospitalist Physical - Constitutional Vitals: Temp Pulse Resp BP Pulse Ox 98.2 F 68 20 116/63 97 03/31/19 05:12 03/31/19 05:38 03/31/19 05:12 03/31/19 05:12 03/31/19 05:38 General appearance: Present: no acute distress, well-nourished, obese - EENT Eyes: Present: PERRL, EOM intact - Neck Neck: Present: supple, normal ROM - Respiratory Respiratory effort: normal Respiratory: bilateral: diminished, negative: rales, rhonchi, wheezing - Cardiovascular Rhythm: regular Heart Sounds: Present: S1 & S2 - Extremities Extremities: no ischemia, No edema - Abdominal General gastrointestinal: soft, non-tender, non-distended, normal bowel sounds - Integumentary Integumentary: Present: clear, warm - Psychiatric Psychiatric: appropriate mood/affect, cooperative - Neurologic Neurologic: CNII-XII intact, moves all extremities Results - Labs CBC & Chem 7: 03/31/19 04:59 03/31/19 04:59 Labs: Laboratory Last Values WBC 7.7 K/mm3 (4.5-11.0) 03/31/19 04:59 RBC 3.74 M/mm3 (3.65-5.03) 03/31/19 04:59 Hgb 12.0 gm/dl (10.1-14.3) 03/31/19 04:59 Hct 36.2 % (30.3-42.9) 03/31/19 04:59 MCV 97 fl (79-97) 03/31/19 04:59 MCH 32 pg (28-32) 03/31/19 04:59 MCHC 33 % (30-34) 03/31/19 04:59 RDW 13.1 % (13.2-15.2) L 03/31/19 04:59 Plt Count 307 K/mm3 (140-440) 03/31/19 04:59 Lymph % (Auto) 25.6 % (13.4-35.0) 03/31/19 04:59 [place] % (Auto) 8.2 % (0.0-7.3) H 03/31/19 04:59 Eos % (Auto) 0.9 % (0.0-4.3) 03/31/19 04:59 Baso % (Auto) 0.6 % (0.0-1.8) 03/31/19 04:59 Lymph # 2.0 K/mm3 (1.2-5.4) 03/31/19 04:59 [place] # 0.6 K/mm3 (0.0-0.8) 03/31/19 04:59 Eos # 0.1 K/mm3 (0.0-0.4) 03/31/19 04:59 Baso # 0.0 K/mm3 (0.0-0.1) 03/31/19 04:59 Seg Neutrophils % 64.7 % (40.0-70.0) 03/31/19 04:59 Seg Neutrophils # 5.0 K/mm3 (1.8-7.7) 03/31/19 04:59 PT 14.1 Sec. (12.2-14.9) 03/29/19 23:18 INR 1.03 (0.87-1.13) 03/29/19 23:18 Sodium 139 mmol/L (137-145) 03/31/19 04:59 Potassium 3.6 mmol/L (3.6-5.0) 03/31/19 04:59 Chloride 99.4 mmol/L (98-107) 03/31/19 04:59 Carbon Dioxide 25 mmol/L (22-30) 03/31/19 04:59 18 mmol/L 03/31/19 04:59 BUN 8 mg/dL (7-17) 03/31/19 04:59 0.8 mg/dL (0.7-1.2) 03/31/19 04:59 Estimated GFR > 60 ml/min 03/31/19 04:59 10 % 03/31/19 04:59 Glucose 92 mg/dL (65-100) 03/31/19 04:59 Lactic Acid 1.10 mmol/L (0.7-2.0) 03/29/19 23:18 Calcium 5.8 mg/dL (8.4-10.2) L* 03/31/19 04:59 Phosphorus 3.70 mg/dL (2.5-4.5) 03/30/19 00:57 Magnesium 1.70 mg/dL (1.7-2.3) 03/31/19 04:59 0.40 mg/dL (0.1-1.2) 03/29/19 22:35 < 0.2 mg/dL (0-0.2) 03/29/19 22:35 0.2 mg/dL 03/29/19 22:35 AST 39 units/L (5-40) 03/29/19 22:35 ALT 20 units/L (7-56) 03/29/19 22:35 70 units/L (35-129) 03/29/19 22:35 1291 units/L (30-135) H 03/30/19 05:17 < 0.010 ng/mL (0.00-0.029) 03/29/19 23:18 7.8 g/dL (6.3-8.2) 03/29/19 22:35 3.6 g/dL (3.9-5) L 03/29/19 22:35 0.9 % 03/29/19 22:35 TSH 18.240 mlU/mL (0.270-4.200) H 03/29/19 23:18 Free T4 0.91 ng/dL (0.76-1.46) 03/29/19 23:18 PTH Intact 5.19 pg/mL (15-65) L 03/29/19 22:35 Straw (Yellow) 03/29/19 22:36 Clear (Clear) 03/29/19 22:36 8.0 (5.0-7.0) H 03/29/19 22:36 Ur Specific [place] 1.006 (1.003-1.030) 03/29/19 22:36 <15 mg/dl mg/dL (Negative) 03/29/19 22:36 Neg mg/dL (Negative) 03/29/19 22:36 Neg mg/dL (Negative) 03/29/19 22:36 Sm (Negative) 03/29/19 22:36 Neg (Negative) 03/29/19 22:36 Neg (Negative) 03/29/19 22:36 < 2.0 mg/dL (<2.0) 03/29/19 22:36 Ur Leukocyte Esterase Neg (Negative) 03/29/19 22:36 < 1.0 /HPF (0.0-6.0) 03/29/19 22:36 < 1.0 /HPF (0.0-6.0) 03/29/19 22:36 U Epithel Cells (Auto) 1.0 /HPF (0-13.0) 03/29/19 22:36 Hyaline Casts 1 /LPF 03/29/19 22:36 Active Medications - Current Medications Current Medications: Generic Name Dose Route Start Last Admin Trade Name Jacob PRN Reason Stop Dose Admin Amlodipine Besylate 10 mg 03/30/19 10:00 03/30/19 10:10 Norvasc PO 10 mg QDAY SUSAN Administration Calcium/Vitamin D 2 each 03/30/19 10:00 03/30/19 22:22 Oysco D 500 Mg-200 Unit PO 2 each BID SUSAN Administration Ferrous Gluconate 324 mg 03/30/19 10:00 03/30/19 13:53 Fergon PO 324 mg QDAY SUSAN Administration Folic Acid 1 mg 03/30/19 10:00 03/30/19 10:10 Folvite PO 1 mg QDAY SUSAN Administration Furosemide 20 mg 03/30/19 11:00 03/30/19 10:09 Lasix PO 20 mg QDAY SUSAN Administration Gabapentin 300 mg 03/30/19 14:00 03/31/19 05:10 Neurontin PO 300 mg Q8HR SUSAN Administration Hydralazine HCl 10 mg 03/30/19 01:18 Apresoline IV Q4HR PRN Blood Pressure Sodium Chloride 1,000 mls @ 100 mls/hr 03/29/19 23:00 03/31/19 05:10 Nacl 0.9% 1000 Ml IV 100 mls/hr DIRECT SUSAN Administration Ibuprofen 400 mg 03/29/19 22:53 Motrin PO Q6H PRN Pain, Mild (1-3) Levothyroxine Sodium 75 mcg 03/30/19 11:00 03/31/19 05:10 Synthroid PO 75 mcg DAILY@0600 SUSAN Administration Lorazepam 2 mg 03/29/19 22:38 03/30/19 10:12 Ativan IV 2 mg Q1H PRN Administration CIWA-Ar 8-15 Lorazepam 4 mg 03/29/19 22:38 Ativan IV Q1H PRN CIWA-Ar 16-25 Metoprolol Tartrate 25 mg 03/30/19 11:00 03/30/19 22:22 Lopressor PO 25 mg BID SUSAN Administration Multivitamins 1 each 03/30/19 10:00 03/30/19 10:10 Theragran Tab PO 1 each QDAY SUSAN Administration Ondansetron HCl 4 mg 03/29/19 22:33 Zofran IV Q8H PRN Nausea And Vomiting Oxycodone HCl 5 mg 03/29/19 22:54 03/30/19 22:21 Roxicodone PO 5 mg Q4H PRN Administration Pain, Moderate (4-6) Sodium Chloride 10 ml 03/30/19 10:00 03/30/19 22:24 Sodium Chloride Flush Syringe 10 Ml IV Not Given BID SUSAN Sodium Chloride 10 ml 03/29/19 22:33 Sodium Chloride Flush Syringe 10 Ml IV PRN PRN LINE FLUSH Thiamine HCl 100 mg 03/30/19 10:00 03/30/19 10:11 Vitamin B-1 PO 100 mg QDAY SUSAN Administration
[2019-03-31] MEDS: HCTZ PO SCH (09:42)
[2019-03-31] MEDS: SODIUM CHLORIDE FLUSH SYRINGE 10 ML IV SCH ×2 (09:42→21:31)
[2019-03-31 18:56] LABS: BUN/Creatinine Ratio 9; Blood Urea Nitrogen 7 mg/dL (7-17); Calcium 6.5 mg/dL (8.4-10.2); Hemolysis Index 29
[2019-03-31] MEDS: CHLORASEPTIC MM PRN (23:23)
[2019-04-01] MEDS: SYNTHROID PO SCH (05:23)
[2019-04-01] MEDS: NEURONTIN PO SCH ×2 (05:23→15:32)
[2019-04-01 06:16] LABS: Basophils # (Auto) 0.1 K/mm3 (0.0-0.1); Basophils % (Auto) 0.7 % (0.0-1.8); Eosinophils # (Auto) 0.1 K/mm3 (0.0-0.4); Eosinophils % (Auto) 0.7 % (0.0-4.3); Hematocrit 36.2 % (30.3-42.9); Hemoglobin 12.4 gm/dl (10.1-14.3); Lymphocytes # (Auto) 2.1 K/mm3 (1.2-5.4); Lymphocytes % (Auto) 23.8 % (13.4-35.0); Mean Corpuscular HGB Conc 34 % (30-34); Mean Corpuscular Volume 95 fl (79-97); Monocytes # (Auto) 0.6 K/mm3 (0.0-0.8); Monocytes % (Auto) 6.8 % (0.0-7.3); Platelet Count 353 K/mm3 (140-440); Red Blood Count 3.82 M/mm3 (3.65-5.03); Red Cell Distribution Width 12.8 % (13.2-15.2)
[2019-04-01 06:18] VITALS: BP 136/82
[2019-04-01 06:37] LABS: Albumin 3.6 g/dL (3.9-5); BUN/Creatinine Ratio 10; Blood Urea Nitrogen 7 mg/dL (7-17); Calcium 6.7 mg/dL (8.4-10.2); Hemolysis Index 138
[2019-04-01 06:45] LABS: Alanine Aminotransferase 21 units/L (7-56)
[2019-04-01] MEDS: CHLORASEPTIC MM PRN (09:30)
[2019-04-01] MEDS: FERGON PO SCH (09:31)
[2019-04-01] MEDS: FOLVITE PO SCH (09:31)
[2019-04-01] MEDS: LOPRESSOR PO SCH (09:31)
[2019-04-01] MEDS: OYSCO D 500 MG-200 UNIT PO SCH (09:31)
[2019-04-01] MEDS: VITAMIN B-1 PO SCH (09:31)
[2019-04-01] MEDS: THERAGRAN Tab PO SCH (09:31)
[2019-04-01] MEDS: SODIUM CHLORIDE FLUSH SYRINGE 10 ML IV SCH (09:31)
[2019-04-01] MEDS: NORVASC PO SCH (09:31)
[2019-04-01] MEDS: LASIX PO SCH (11:20)
--- NOTE | 2019-04-01 12:23 | Discharge Summary ---
Providers - Providers Date of Admission: 03/29/19 22:33 Date of discharge: 04/01/19 Attending physician: ISABEL DUTTON Primary care physician: [facility] Hospitalization Reason for admission: General weakness /hypocalcemia Condition: Stable Pertinent studies: CXR : no acute abnormality Hospital course: 53 year old -[place] female patient with history of hypothyroidism and hypocalcemia secondary to hypoparathyroidism was admitted through ED with history of generalized weakness with poor mobility,history of leg swelling, muscle cramps, numbness in legs, chills without fever, shortness of breath on mild exertion, lightheadedness. Symptomatically managed,replacement therapy with calcium and vitD. Rhabdomyolysis improved. Today patient is comfortable, no new complaints. Vital signs stable,Physical exam is unremarkable. 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 Corrected calcium level is 6, improved s/p IV calcium gluconate, oral calcium/vitamin D IV calcium when necessary, consider nephrology consult if no improvement --Rhabdomyolysis; CK levels trending down Continue IV fluid, will monitor CK level --SIRS; Probably due to noninfectious process Chest x-ray negative, urinalysis pending --Hypothyroidism; continue Synthroid --Hypertension; well controlled on antihypertensives, PRN medications --History of alcohol dependence/alcohol withdrawal Continue CIWA protocol, Advised to quit alcohol use Life Style modification recommended Disposition: DC-01 TO HOME OR SELFCARE Time spent for discharge: 32 min Core Measure Documentation - Palliative Care Palliative Care/ Comfort Measures: Not Applicable - Core Measures Any of the following diagnoses?: none Exam - Constitutional Vitals: Temp Pulse Resp BP Pulse Ox 98.6 F 65 16 136/82 95 04/01/19 05:24 04/01/19 05:00 04/01/19 05:24 04/01/19 05:24 04/01/19 05:00 General appearance: Present: no acute distress, well-nourished - EENT Eyes: Present: PERRL, EOM intact - Neck Neck: Present: supple, normal ROM - Respiratory Respiratory effort: normal Respiratory: bilateral: diminished, negative: rales, rhonchi, wheezing - Cardiovascular Rhythm: regular Heart Sounds: Present: S1 & S2 - Extremities Extremities: no ischemia, No edema - Abdominal General gastrointestinal: Present: soft, non-tender, non-distended, normal bowel sounds - Integumentary Integumentary: Present: clear, warm - Musculoskeletal Musculoskeletal: strength equal bilaterally - Psychiatric Psychiatric: appropriate mood/affect, cooperative - Neurologic Neurologic: CNII-XII intact, moves all extremities Plan Activity: advance as tolerated Diet: low salt, other (plenty oral fluids) Additional Instructions: Advised to consume calcium rich products/foods. Follow-up nephrology per schedule Follow up with: INGRID ANGEL MD [Primary Care Provider] - 7 Days PONCHO BRAR MD [Staff Physician] - 7 Days Prescriptions: Calcium Carbonate [Calcium] 500 mg PO TID #90 tablet Calc Carb/Vit D 500 mg-200 Uni [[place] D 500 mg-200 Unit] 2 each PO BID #60 tablet
[2019-04-03 13:58] LABS: Vitamin D, 25-OH, D2 <4 ng/mL
== END 2019-04-01 16:00 | disposition home or self-care (01) | DRG 558 ==
LOC: ED 13:24 → 3A 22:33
PROVIDERS: ADMIT Internal Medicine; ATTEND Internal Medicine
DX: M62.82 Rhabdomyolysis (principal); R65.10 Systemic inflammatory response syndrome (SIRS) of non-infectious origin without acute organ dysfunction; Z68.41 Body mass index [BMI] 40.0-44.9, adult; E87.6 Hypokalemia; E83.51 Hypocalcemia; E83.42 Hypomagnesemia; I10 Essential (primary) hypertension; F10.10 Alcohol abuse, uncomplicated; E66.01 Morbid (severe) obesity due to excess calories; Z79.899 Other long term (current) drug therapy; Z87.442 Personal history of urinary calculi
CPT/HCPCS: 36415; 71046; 80048; 80053; 80076; 81001; 82140; 82306; 82310; 82330; 82550; 83735; 83970; 84100; 84132; 84439; 84443; 84484; 85025; 85610; 93005; 93010; 93306; G0378; J0610; J2060; J3475; J3480; J7030; J7040; Q0162

== ENCOUNTER 2019-08-20 14:12 | Emergency (ER) | payer SELFPAY ==
[2019-08-20 15:07] LABS: Basophils # (Auto) 0.1 K/mm3 (0.0-0.1); Basophils % (Auto) 1.2 % (0.0-1.8); Eosinophils # (Auto) 0.1 K/mm3 (0.0-0.4); Eosinophils % (Auto) 1.3 % (0.0-4.3); Hematocrit 36.4 % (30.3-42.9); Hemoglobin 12.2 gm/dl (10.1-14.3); Lymphocytes % (Auto) 22.7 % (13.4-35.0); Mean Corpuscular HGB Conc 34 % (30-34); Mean Corpuscular Volume 94 fl (79-97); Monocytes # (Auto) 0.5 K/mm3 (0.0-0.8); Monocytes % (Auto) 5.9 % (0.0-7.3); Platelet Count 306 K/mm3 (140-440); Red Blood Count 3.89 M/mm3 (3.65-5.03); Red Cell Distribution Width 14.2 % (13.2-15.2)
[2019-08-20 15:34] LABS: BUN/Creatinine Ratio 6; Blood Urea Nitrogen 5 mg/dL (7-17); Calcium 6.3 mg/dL (8.4-10.2); Hemolysis Index 4
[2019-08-20 15:56] LABS: Bilirubin,Urine NEG (Negative); Blood,Urine MOD (Negative); Color,Urine Yellow (Yellow); Mucus,Urine FEW /HPF; Protein,Urine <15 mg/dL mg/dL (Negative); Urobilinogen,Urine < 2.0 mg/dL (<2.0)
--- NOTE | 2019-08-20 20:02 | Emergency Department Report ---
ED General Adult HPI - General Chief complaint: Dizziness Stated complaint: FEET SWOLLEN/DIZZINESS/HEADACHE Time Seen by Provider: 08/20/19 18:02 Source: patient Mode of arrival: Ambulatory Limitations: No Limitations - History of Present Illness Initial comments: 53 y.o female pt who presents to ER with c/o dizziness x 1 hour. headache, and blood in urine. pt also c/o bilateral foot pain. pt denies fall or injury. pt denies blurred vision, denies any n/v. - Related Data Previous Rx's Medication Instructions Recorded Last Taken Type Multivitamins-Mineral [Theragran-M] 1 each PO DAILY 30 Days tablet 01/08/14 1 Day Ago Rx ~11/08/15 Calcium Carbonate/Vitamin D3 1 tab PO QDAY #30 tablet 12/18/15 Unknown Rx [Calcium 600-Vit D3 800 Tablet] Gabapentin 600 mg PO Q8HR #90 capsule 08/17/18 Unknown Rx Calcium Carbonate [Calcium] 500 mg PO TID #90 tablet 04/01/19 Unknown Rx Calc Carb/Vit D 500 mg-200 Uni 2 each PO BID #60 tablet 08/20/19 Unknown Rx [Oysco D 500 mg-200 Unit] Ferrous Gluconate [Fergon 325 MG 324 mg PO QDAY #30 tablet 08/20/19 Unknown Rx tab] Folic Acid [Folvite] 1 mg PO DAILY #30 tablet 08/20/19 Unknown Rx Furosemide [Lasix TAB] 20 mg PO QDAY #30 tablet 08/20/19 Unknown Rx Gabapentin 300 mg PO Q8HR #90 capsule 08/20/19 Unknown Rx Levothyroxine [Synthroid] 75 mcg PO QAM #30 tablet 08/20/19 Unknown Rx Metoprolol [Lopressor TAB] 25 mg PO BID #60 tablet 08/20/19 Unknown Rx Sulfamethoxazole/Trimethoprim 1 each PO BID #14 tablet 08/20/19 Unknown Rx [Bactrim DS TAB] amLODIPine 10 mg PO DAILY #30 tab 08/20/19 Unknown Rx hydroCHLOROthiazide [HCTZ] 25 mg PO QDAY #30 capsule 08/20/19 Unknown Rx Allergies Allergy/AdvReac Type Severity Reaction Status Date / Time No Known Allergies Allergy Verified 03/29/19 13:28 ED Review of Systems ROS: Stated complaint: FEET SWOLLEN/DIZZINESS/HEADACHE Other details as noted in HPI Comment: All other systems reviewed and negative Genitourinary: denies: urgency, dysuria Skin: rash, lesions Neurological: other (dizziness) ED Past Medical Hx - Past Medical History Previous Medical History?: Yes Hx Hypertension: Yes Hx Congestive Heart Failure: No Hx Diabetes: Yes Hx Sickle Cell Disease: No Hx Seizures: No Hx Kidney Stones: Yes Hx Asthma: No Hx COPD: No Hx HIV: No Additional medical history: anemia. low calcium. Hypothyroidism. ALCOHOLIC - Surgical History Past Surgical History?: Yes Additional Surgical History: thyroid and parathyroid removed - Social History Smoking Status: Never Smoker Substance Use Type: Alcohol - Medications Home Medications: Home Medications Medication Instructions Recorded Confirmed Last Taken Type Multivitamins-Mineral [Theragran-M] 1 each PO DAILY 30 Days tablet 01/08/14 03/30/19 1 Day Ago Rx ~11/08/15 Calcium Carbonate/Vitamin D3 1 tab PO QDAY #30 tablet 12/18/15 03/30/19 Unknown Rx [Calcium 600-Vit D3 800 Tablet] Gabapentin 600 mg PO Q8HR #90 capsule 08/17/18 03/30/19 Unknown Rx Calcium Carbonate [Calcium] 500 mg PO TID #90 tablet 04/01/19 Unknown Rx Calc Carb/Vit D 500 mg-200 Uni 2 each PO BID #60 tablet 08/20/19 Unknown Rx [Oysco D 500 mg-200 Unit] Ferrous Gluconate [Fergon 325 MG 324 mg PO QDAY #30 tablet 08/20/19 Unknown Rx tab] Folic Acid [Folvite] 1 mg PO DAILY #30 tablet 08/20/19 Unknown Rx Furosemide [Lasix TAB] 20 mg PO QDAY #30 tablet 08/20/19 Unknown Rx Gabapentin 300 mg PO Q8HR #90 capsule 08/20/19 Unknown Rx Levothyroxine [Synthroid] 75 mcg PO QAM #30 tablet 08/20/19 Unknown Rx Metoprolol [Lopressor TAB] 25 mg PO BID #60 tablet 08/20/19 Unknown Rx Sulfamethoxazole/Trimethoprim 1 each PO BID #14 tablet 08/20/19 Unknown Rx [Bactrim DS TAB] amLODIPine 10 mg PO DAILY #30 tab 08/20/19 Unknown Rx hydroCHLOROthiazide [HCTZ] 25 mg PO QDAY #30 capsule 08/20/19 Unknown Rx ED Physical Exam - General Limitations: No Limitations General appearance: alert, in no apparent distress - Head Head exam: Present: atraumatic, normocephalic - Eye Eye exam: Present: normal appearance, PERRL, EOMI - ENT ENT exam: Present: normal exam - Neck Neck exam: Present: normal inspection, tenderness - Respiratory Respiratory exam: Present: normal lung sounds bilaterally - Cardiovascular Cardiovascular Exam: Present: regular rate, normal rhythm - Extremities Exam Extremities exam: Present: tenderness, other (erythema, feet) ED Course Vital Signs 08/20/19 08/20/19 08/20/19 14:35 19:31 21:12 Temperature 98.4 F 98.5 F Pulse Rate 91 H 88 Respiratory 18 16 Rate Blood Pressure 168/101 Blood Pressure 158/79 [Right] O2 Sat by Pulse 98 95 Oximetry ED Medical Decision Making - Lab Data Result diagrams: 08/20/19 14:55 08/20/19 14:55 Critical care attestation.: If time is entered above; I have spent that time in minutes in the direct care of this critically ill patient, excluding procedure time. ED Disposition Clinical Impression: Dizziness, Cellulitis of foot without toes, right Hypertension Qualifiers: Hypertension type: essential hypertension Qualified Code(s): I10 - Essential (primary) hypertension Disposition: DC- TO HOME OR SELFCARE Is pt being admited?: No Does the pt Need Aspirin: No Condition: Stable Instructions: Cellulitis (ED), Dizziness (ED), Hypertension (ED) Prescriptions: amLODIPine 10 mg PO DAILY #30 tab Sulfamethoxazole/Trimethoprim [Bactrim DS TAB] 1 each PO BID #14 tablet Ferrous Gluconate [Fergon 325 MG tab] 324 mg PO QDAY #30 tablet Folic Acid [Folvite] 1 mg PO DAILY #30 tablet Gabapentin 300 mg PO Q8HR #90 capsule hydroCHLOROthiazide [HCTZ] 25 mg PO QDAY #30 capsule Furosemide [Lasix TAB] 20 mg PO QDAY #30 tablet Metoprolol [Lopressor TAB] 25 mg PO BID #60 tablet Calc Carb/Vit D 500 mg-200 Uni [[place] D 500 mg-200 Unit] 2 each PO BID #60 table t Levothyroxine [Synthroid] 75 mcg PO QAM #30 tablet Referrals: INGRID ANGEL MD [Primary Care Provider] - 3-5 Days
[2019-08-20 21:13] VITALS: BP 158/79
== END 2019-08-20 21:14 | disposition home or self-care (01) ==
LOC: ED 14:12
DX: I10 Essential (primary) hypertension (principal); E11.9 Type 2 diabetes mellitus without complications; E03.9 Hypothyroidism, unspecified; Z87.442 Personal history of urinary calculi; Z86.2 Personal history of diseases of the blood and blood-forming organs and certain disorders involving the immune mechanism; Z79.899 Other long term (current) drug therapy
CPT/HCPCS: 36415; 80048; 81001; 82962; 84484; 85025; 93005; 93010; 99283

== ENCOUNTER 2019-09-16 12:32 | Emergency (ER) | payer SELFPAY ==
[2019-09-16 14:43] LABS: Bacteria,Urine 3+ /HPF (Negative); Bilirubin,Urine NEG (Negative); Blood,Urine SM (Negative); Color,Urine Amber (Yellow); Hyaline Casts,Urine 6 /LPF; Mucus,Urine 1+ /HPF
--- NOTE | 2019-09-16 14:51 | Emergency Department Report ---
HPI - General Chief Complaint: Dizziness Time Seen by Provider: 09/16/19 14:32 - HPI HPI: Room 26 The patient is a 53-year-old female presenting with chief complaint of dizziness. The patient states she was in her normal state of health until this morning at approximately 11:00. The patient states while sitting she became dizzy and short of breath. Patient states she felt diffusely weak and had tingling in both arms and legs. Patient denies history of fever. Patient currently denies complaints stating "I feel all right now." The patient was seen previously for infection in her foot and started on Bactrim. The patient states she just got the Bactrim filled and began taking them. The patient states she also just began retaking her Synthroid Location: [See above] Duration: [See above] Quality: [See above] Severity: [See above] Timing: [See above] Context: [See above] Modifying factors: [See above] Associated signs and symptoms: [see above] ED Past Medical Hx - Past Medical History Hx Hypertension: Yes Hx Diabetes: Yes Hx Kidney Stones: Yes Additional medical history: anemia. low calcium. Hypothyroidism. ALCOHOLIC - Surgical History Additional Surgical History: thyroid and parathyroid removed - Family History Family history: no significant - Social History Smoking Status: Never Smoker Substance Use Type: None (denies illicit drug use), Alcohol (occasional) - Medications Home Medications: Home Medications Medication Instructions Recorded Confirmed Last Taken Type Multivitamins-Mineral [Theragran-M] 1 each PO DAILY 30 Days tablet 01/08/14 03/30/19 1 Day Ago Rx ~11/08/15 Calcium Carbonate/Vitamin D3 1 tab PO QDAY #30 tablet 12/18/15 03/30/19 Unknown Rx [Calcium 600-Vit D3 800 Tablet] Gabapentin 600 mg PO Q8HR #90 capsule 08/17/18 03/30/19 Unknown Rx Calcium Carbonate [Calcium] 500 mg PO TID #90 tablet 04/01/19 Unknown Rx Calc Carb/Vit D 500 mg-200 Uni 2 each PO BID #60 tablet 08/20/19 Unknown Rx [Oysco D 500 mg-200 Unit] Ferrous Gluconate [Fergon 325 MG 324 mg PO QDAY #30 tablet 08/20/19 Unknown Rx tab] Folic Acid [Folvite] 1 mg PO DAILY #30 tablet 08/20/19 Unknown Rx Furosemide [Lasix TAB] 20 mg PO QDAY #30 tablet 08/20/19 Unknown Rx Gabapentin 300 mg PO Q8HR #90 capsule 08/20/19 Unknown Rx Levothyroxine [Synthroid] 75 mcg PO QAM #30 tablet 08/20/19 Unknown Rx Metoprolol [Lopressor TAB] 25 mg PO BID #60 tablet 08/20/19 Unknown Rx Sulfamethoxazole/Trimethoprim 1 each PO BID #14 tablet 08/20/19 Unknown Rx [Bactrim DS TAB] amLODIPine 10 mg PO DAILY #30 tab 08/20/19 Unknown Rx hydroCHLOROthiazide [HCTZ] 25 mg PO QDAY #30 capsule 08/20/19 Unknown Rx Ciprofloxacin HCl [Ciprofloxacin 500 mg PO Q12HR #14 tab 09/16/19 Unknown Rx TAB] HYDROcodone/APAP 5-325 [[place] 1 each PO Q6HR PRN #14 tablet 09/16/19 Unknown Rx 5/325] ED Review of Systems ROS: Stated complaint: DIZZINESS Other details as noted in HPI Constitutional: denies: fever Eyes: denies: eye pain ENT: denies: throat pain Respiratory: shortness of breath Endocrine: no symptoms reported Gastrointestinal: denies: abdominal pain Genitourinary: denies: dysuria Musculoskeletal: myalgia Neurological: other (dizziness) Physical Exam - Physical Exam Vital Signs: Vital Signs 09/16/19 09/16/19 12:42 14:17 Temperature 98.1 F Pulse Rate 95 H 74 Respiratory 16 18 Rate Blood Pressure 119/69 154/66 [Right] O2 Sat by Pulse 98 100 Oximetry Physical Exam: GENERAL: The patient is well-developed well-nourished female lying on stretcher not appearing to be in acute distress. [] HEENT: Normocephalic. Atraumatic. Extraocular motions are intact. Patient has moist mucous membranes. NECK: Supple. No meningitic signs are noted. I can midline CHEST/LUNGS: Clear to auscultation. There is no respiratory distress noted. HEART/CARDIOVASCULAR: Regular. There is no tachycardia. There is no gallop rub or murmur. ABDOMEN: Abdomen is soft, nontender. Patient has normal bowel sounds. There is no abdominal distention. SKIN: There is no diaphoresis. The sole of the right foot is dry and cracked with a foul odor emanating from between the toes. The left foot metatarsal region is hyperpigmented with desquamation of the sole of the left foot with an ulceration. This is also foul-smelling. NEURO: The patient is awake, alert, and oriented. The patient is cooperative. The patient has no focal neurologic deficits. The patient has normal speech. Cranial nerves II through XII grossly intact, no drift MUSCULOSKELETAL: There is no evidence of acute injury. ED Course Vital Signs 09/16/19 09/16/19 12:42 14:17 Temperature 98.1 F Pulse Rate 95 H 74 Respiratory 16 18 Rate Blood Pressure 119/69 154/66 [Right] O2 Sat by Pulse 98 100 Oximetry ED Medical Decision Making - Lab Data Result diagrams: 09/16/19 15:06 09/16/19 15:06 Laboratory Tests 09/16/19 09/16/19 09/16/19 15:06 15:06 15:06 WBC 13.2 H RBC 3.94 Hgb 12.0 Hct 37.0 MCV 94 MCH 30 MCHC 32 RDW 13.8 Plt Count 293 Lymph % (Auto) 10.0 L [place] % (Auto) 5.4 Eos % (Auto) 0.6 Baso % (Auto) 0.7 Lymph # 1.3 [place] # 0.7 Eos # 0.1 Baso # 0.1 Seg Neutrophils % 83.3 H Seg Neutrophils # 11.0 H D-Dimer 713.61 H VBG pH Sodium 139 Potassium 4.0 Chloride 99.2 Carbon Dioxide 21 L Anion Gap 23 BUN 11 Creatinine 1.1 Estimated GFR > 60 BUN/Creatinine Ratio 10 Glucose 79 Calcium 6.6 L Magnesium Total Bilirubin 0.40 AST 38 ALT 15 Alkaline Phosphatase 88 Total Creatine Kinase 396 H CK-MB (CK-2) 4.1 H CK-MB (CK-2) Rel Index 1.0 Troponin T Total Protein 8.6 H Albumin 4.2 Albumin/Globulin Ratio 1.0 Free T4 Urine Color Urine Turbidity Urine pH Ur Specific [place] Urine Protein Urine Glucose (UA) Urine Ketones Urine Blood Urine Nitrite Urine Bilirubin Urine Urobilinogen Ur Leukocyte Esterase Urine WBC (Auto) Urine RBC (Auto) U Epithel Cells (Auto) Urine Bacteria (Auto) Hyaline Casts Urine Mucus 09/16/19 09/16/19 09/16/19 15:06 15:06 15:06 WBC RBC Hgb Hct MCV MCH MCHC RDW Plt Count Lymph % (Auto) [place] % (Auto) Eos % (Auto) Baso % (Auto) Lymph # [place] # Eos # Baso # Seg Neutrophils % Seg Neutrophils # D-Dimer VBG pH 7.412 Sodium Potassium Chloride Carbon Dioxide Anion Gap BUN Creatinine Estimated GFR BUN/Creatinine Ratio Glucose Calcium Magnesium Total Bilirubin AST ALT Alkaline Phosphatase Total Creatine Kinase CK-MB (CK-2) CK-MB (CK-2) Rel Index Troponin T < 0.010 Total Protein Albumin Albumin/Globulin Ratio Free T4 0.74 L Urine Color Urine Turbidity Urine pH Ur Specific [place] Urine Protein Urine Glucose (UA) Urine Ketones Urine Blood Urine Nitrite Urine Bilirubin Urine Urobilinogen Ur Leukocyte Esterase Urine WBC (Auto) Urine RBC (Auto) U Epithel Cells (Auto) Urine Bacteria (Auto) Hyaline Casts Urine Mucus 09/16/19 09/16/19 15:06 Unknown WBC RBC Hgb Hct MCV MCH MCHC RDW Plt Count Lymph % (Auto) [place] % (Auto) Eos % (Auto) Baso % (Auto) Lymph # [place] # Eos # Baso # Seg Neutrophils % Seg Neutrophils # D-Dimer VBG pH Sodium Potassium Chloride Carbon Dioxide Anion Gap BUN Creatinine Estimated GFR BUN/Creatinine Ratio Glucose Calcium Magnesium 1.90 Total Bilirubin AST ALT Alkaline Phosphatase Total Creatine Kinase CK-MB (CK-2) CK-MB (CK-2) Rel Index Troponin T Total Protein Albumin Albumin/Globulin Ratio Free T4 Urine Color [place] Urine Turbidity Cloudy Urine pH 6.0 Ur Specific [place] 1.019 Urine Protein 100 mg/dl Urine Glucose (UA) 50 Urine Ketones Tr Urine Blood Sm Urine Nitrite Neg Urine Bilirubin Neg Urine Urobilinogen 2.0 Ur Leukocyte Esterase Sm Urine WBC (Auto) 11.0 H Urine RBC (Auto) 8.0 U Epithel Cells (Auto) 14.0 H Urine Bacteria (Auto) 3+ Hyaline Casts 6 Urine Mucus 1+ - EKG Data -: EKG Interpreted by Me EKG shows normal: sinus rhythm Rate: normal - EKG Data When compared to previous EKG there are: previous EKG unavailable Interpretation: nonspecific ST-T wave alisson (T-wave inversions in leads 3 and aVF) - Radiology Data Radiology results: report reviewed (CT head, CT chest), image reviewed (CT head, CT chest) [address] [address] Cat Scan Report Signed Patient: ROSEANN WONG MR#: [id number] : 1965 Acct:[id number] Age/Sex: 53 / F ADM Date: 09/16/19 Loc: ED Attending Dr: Ordering Physician: HILTON GONGORA MD Date of Service: 09/16/19 Procedure(s): CT angio chest Accession Number(s): [id number] cc: HILTON GONGORA MD CT ANGIOGRAPHY OF THE CHEST WITH INTRAVENOUS CONTRAST AND MULTIPLANAR MIP RECONSTRUCTIONS INDICATION / CLINICAL INFORMATION: Shortness of breath and dizziness. TECHNIQUE: Axial CT images were obtained after injection of 100 cc Omnipaque 350 IV contrast using CTA protocol. 3 plane MIP / 3D reconstructions were produced. All CT scans at this location are performed using CT dose reduction for ALARA by means of automated exposure control. COMPARISON: None available. FINDINGS: There is good opacification of the pulmonary arterial system bilaterally without intraluminal filling defect to suggest acute PTE. The thoracic aorta is normal in caliber without dissection. No coronary artery calcification is seen. The tracheobronchial tree is normal. There are small scattered solid subpleural nodules in both lungs, most prominent in the right upper and middle lobes. The largest nodule measures 4 mm. There is no evidence of adenopathy or effusion. There is a 3 cm simple cyst in the right kidney. There is a 2.1 cm poorly defined nodular density in the left adrenal gland which contains scattered areas of calcification. Mild spondylosis is noted. IMPRESSION: 1. No evidence of acute PTE. 2. Multiple small incidental pulmonary nodules bilaterally, the largest which measures 4 mm. 3. 2.1 cm poorly defined left adrenal nodule which contains calcifications. A larger low density nodule containing mild peripheral calcification was noted at this site on a CT of the abdomen from 07/06/2015. The findings are probably related to involuting benign disease with dystrophic ca lcifications. INCIDENTAL PULMONARY NODULE RECOMMENDATIONS Solid Nodule size <6 mm -- Single or Multiple - Low Risk Patient: No routine follow-up - High Risk Patient: Optional CT at 12 months Note These recommendations do not apply to lung cancer screening, patients with immunosuppression, or patients with known primary cancer. Note Newly detected indeterminate nodule in persons 35 years of age or older. Persons under the age of 35 should not receive follow-up unless there is a known primary cancer. Low Risk Patient -- minimal or absent history of smoking and of other known risk factors. High Risk Patient -- history of smoking or of other known risk factors. Nodule dimensions are average of long and short axes, rounded to the nearest millimeter. Based on 2017 Fleischner Society Guidelines found in Radiology 2017 284:228-243. [email or web address].[email or web address]/radiol.[email or web address] Signer Name: Syed Gray MD Signed: 09/16/2019 7:26 PM Workstation Name: [id number] Transcribed By: RT Dictated By: Syed Gray MD Electronically Authenticated By: Syed Gray MD Signed Date/Time: 09/16/191925 DD/ 10 TD/TT: [place] [address] Cat Scan Report Signed Patient: ROSEANN WONG MR#: [id number] : 1965 Acct:[id number] Age/Sex: 53 / F ADM Date: 09/16/19 Loc: ED Attending Dr: Ordering Physician: HILTON GONGORA MD Date of Service: 09/16/19 Procedure(s): CT head/brain wo con Accession Number(s): [id number] cc: HILTON GONGORA MD CT head without contrast INDICATION : dizziness. TECHNIQUE: Axial imaging performed from the skull apex through the skull base without the use of contrast. All CT scans at this location are performed using CT dose reduction for ALARA by means of automated exposure control. COMPARISON: CT head from 08/16/2018 FINDINGS: Parenchyma: No acute intracranial hemorrhage or parenchymal abnormality. Ventricles: Ventricles are normal in size and appear symmetric. Soft tissues: There is mild left frontal scalp irregularity suggesting a laceration, age indeterminate. Soft tissues are otherwise unremarkable. Bones: No acute osseous abnormality. Sinuses: There is mucoperiosteal reactive change in the region of the right sphenoid sinus which is also completely opacified and suggesting chronic sinusitis. Remaining sinuses and mastoid air cells are clear. IMPRE SSION: No acute intracranial abnormality. Incidental findings as above. Signer Name: Lauri Land MD Signed: 09/16/2019 4:02 PM Workstation Name: [id number] Transcribed By: JW Dictated By: Lauri Land MD Electronically Authenticated By: Lauri Land MD Signed Date/Time: 09/16/19 1602 DD/ 1600 TD/TT: - Differential Diagnosis dehydration, PE, dysrhythmia, ACS, Critical care attestation.: If time is entered above; I have spent that time in minutes in the direct care of this critically ill patient, excluding procedure time. ED Disposition Clinical Impression: Diabetic foot infection, UTI (urinary tract infection), Hypothyroidism Disposition: TO HOME OR SELFCARE Is pt being admited?: No Does the pt Need Aspirin: No Condition: Stable Instructions: Diabetes Mellitus Type 2 in Adults (ED) Additional Instructions: Return to the emergency department should you develop worsening symptoms, inability to tolerate food or liquids, high fever or any other concerns Prescriptions: Ciprofloxacin HCl [Ciprofloxacin TAB] 500 mg PO Q12HR #14 tab HYDROcodone/APAP 5-325 [[place] 5/325] 1 each PO Q6HR PRN #14 tablet PRN Reason: Pain Referrals: PRIMARY CAREMD [Primary Care Provider] - [facility] Time of Disposition: 22:28
[2019-09-16 15:21] LABS: Basophils # (Auto) 0.1 K/mm3 (0.0-0.1); Basophils % (Auto) 0.7 % (0.0-1.8); Eosinophils # (Auto) 0.1 K/mm3 (0.0-0.4); Eosinophils % (Auto) 0.6 % (0.0-4.3); Lymphocytes # (Auto) 1.3 K/mm3 (1.2-5.4); Mean Corpuscular HGB Conc 32 % (30-34); Mean Corpuscular Volume 94 fl (79-97); Monocytes # (Auto) 0.7 K/mm3 (0.0-0.8); Monocytes % (Auto) 5.4 % (0.0-7.3); Platelet Count 293 K/mm3 (140-440); Red Blood Count 3.94 M/mm3 (3.65-5.03); Red Cell Distribution Width 13.8 % (13.2-15.2)
[2019-09-16] MEDS ORDERED: SODIUM CHLORIDE 0.9% 1000 ML 1,000 ML IV ONE ×2 (15:33)
[2019-09-16 15:53] LABS: Alanine Aminotransferase 15 units/L (7-56); Albumin 4.2 g/dL (3.9-5); BUN/Creatinine Ratio 10; Blood Urea Nitrogen 11 mg/dL (7-17); Calcium 6.6 mg/dL (8.4-10.2); Creatine Kinase MB 4.1 ng/mL (0.0-4.0); Hemolysis Index 13
[2019-09-16 16:02] LABS: Free T4 (Free Thyroxine) 0.74 ng/dL (0.76-1.46)
--- NOTE | 2019-09-16 16:07 | Cat Scan Report ---
CT head without contrast INDICATION : dizziness. TECHNIQUE: Axial imaging performed from the skull apex through the skull base without the use of con trast. All CT scans at this location are performed using CT dose reduction for ALARA by means of aut omated exposure control. COMPARISON: CT head from 08/16/2018 FINDINGS: Parenchyma: No acute intracranial hemorrhage or parenchymal abnormality. Ventricles: Ventricles are normal in size and appear symmetric. Soft tissues: There is mild left frontal scalp irregularity suggesting a laceration, age indeterminat e. Soft tissues are otherwise unremarkable. Bones: No acute osseous abnormality. Sinuses: There is mucoperiosteal reactive change in the region of the right sphenoid sinus which is also completely opacified and suggesting chronic sinusitis. Remaining sinuses and mastoid air cells a re clear. IMPRESSION: No acute intracranial abnormality. Incidental findings as above. Signer Name: Lauri Land MD Signed: 09/16/2019 4:02 PM Workstation Name: [id number]
--- NOTE | 2019-09-16 19:30 | Cat Scan Report ---
CT ANGIOGRAPHY OF THE CHEST WITH INTRAVENOUS CONTRAST AND MULTIPLANAR MIP RECONSTRUCTIONS INDICATION / CLINICAL INFORMATION: Shortness of breath and dizziness. TECHNIQUE: Axial CT images were obtained after injection of 100 cc Omnipaque 350 IV contrast using CTA protocol. 3 plane MIP / 3D reconstructions were produced. All CT scans at this location are performed using CT dose reduction for ALARA by means of automated exposure control. COMPARISON: None available. FINDINGS: There is good opacification of the pulmonary arterial system bilaterally without intraluminal filling defect to suggest acute PTE. The thoracic aorta is normal in caliber without dissection. No coronary artery calcification is seen. The tracheobronchial tree is normal. There are small scattered solid subpleural nodules in both lungs , most prominent in the right upper and middle lobes. The largest nodule measures 4 mm. There is no e vidence of adenopathy or effusion. There is a 3 cm simple cyst in the right kidney. There is a 2.1 cm poorly defined nodular density in the left adrenal gland which contains scattered areas of calcification. Mild spondylosis is noted. IMPRESSION: 1. No evidence of acute PTE. 2. Multiple small incidental pulmonary nodules bilaterally, the largest which measures 4 mm. 3. 2.1 cm poorly defined left adrenal nodule which contains calcifications. A larger low density nodu le containing mild peripheral calcification was noted at this site on a CT of the abdomen from 015. The findings are probably related to involuting benign disease with dystrophic calcifications. INCIDENTAL PULMONARY NODULE RECOMMENDATIONS Solid Nodule size <6 mm -- Single or Multiple - Low Risk Patient: No routine follow-up - High Risk Patient: Optional CT at 12 months Note These recommendations do not apply to lung cancer screening, patients with immunosuppression, o r patients with known primary cancer. Note Newly detected indeterminate nodule in persons 35 years of age or older. Persons under the age of 35 should not receive follow-up unless there is a known primary cancer. Low Risk Patient -- minimal or absent history of smoking and of other known risk factors. High Risk Patient -- history of smoking or of other known risk factors. Nodule dimensions are average of long and short axes, rounded to the nearest millimeter. Based on 2017 Fleischner Society Guidelines found in Radiology 2017 284:228-243. [email or web address] [email or web address] Signer Name: Syed Gray MD Signed: 09/16/2019 7:26 PM Workstation Name: [id number]
[2019-09-16 20:55] VITALS: BP 147/89
== END 2019-09-16 22:41 | disposition home or self-care (01) ==
LOC: ED 12:32
DX: E11.621 Type 2 diabetes mellitus with foot ulcer (principal); L97.519 Non-pressure chronic ulcer of other part of right foot with unspecified severity; N39.0 Urinary tract infection, site not specified; E03.9 Hypothyroidism, unspecified; R42 Dizziness and giddiness; I10 Essential (primary) hypertension; Z87.442 Personal history of urinary calculi; Z79.899 Other long term (current) drug therapy
CPT/HCPCS: 36415; 70450; 71275; 80053; 81001; 82550; 82553; 82805; 83735; 84439; 84443; 84484; 85025; 85379; 87040; 87086; 93005; 93010; 96360; 96361; 99285; J7030; Q9967

== ENCOUNTER 2021-04-03 16:53 | Emergency (ER) | payer SELFPAY ==
--- NOTE | 2021-04-03 17:34 | Event Note ---
ED Screening Note ED Screening Note: Patient presents for lightheadedness, shortness of breath, generalized weakness, cough, fatigue that began around 12 PM today She denies any chest pain, abdominal pain, fever, nausea, vomiting, diarrhea She states that she was recently admitted to [facility] and reports that she spends 5 to 6 days there and was just released on Monday for the same symptoms Past medical history of diabetes, hypertension, parathyroid removal, anemia, hypothyroidism This initial assessment/diagnostic orders/clinical plan/treatment(s) is/are subject to change based on patients health status, clinical progression and re- assessment by fellow clinical providers in the ED. Further treatment and workup at subsequent clinical providers discretion. Patient/guardian urged not to elope from the ED as their condition may be serious if not clinically assessed and managed. Initial orders include: Labs, EKG, x-ray, urine
[2021-04-03 18:16] LABS: Basophils % (Auto) 0.2 % (0.0-1.8); Eosinophils # (Auto) 0.1 K/mm3 (0.0-0.4); Eosinophils % (Auto) 0.3 % (0.0-4.3); Hemoglobin 13.2 gm/dl (10.1-14.3); Lymphocytes # (Auto) 3.1 K/mm3 (1.2-5.4); Mean Corpuscular HGB Conc 34 % (30-34); Mean Corpuscular Volume 96 fl (79-97); Monocytes # (Auto) 1.1 K/mm3 (0.0-0.8); Monocytes % (Auto) 6.2 % (0.0-7.3); Platelet Count 359 K/mm3 (140-440); Red Blood Count 4.07 M/mm3 (3.65-5.03); Red Cell Distribution Width 14.6 % (13.2-15.2)
--- NOTE | 2021-04-03 18:26 | XRay Report ---
CHEST 2 VIEWS INDICATION / CLINICAL INFORMATION: weakness, SOB. COMPARISON: 03/29/2019 FINDINGS: SUPPORT DEVICES: None. HEART / MEDIASTINUM: Stable. LUNGS / PLEURA: No significant pulmonary or pleural abnormality. No pneumothorax. ADDITIONAL FINDINGS: No significant additional findings. IMPRESSION: 1. No acute findings. No significant interval change since 03/29/2019. Signer Name: Raad Leary MD Signed: 04/03/2021 6:21 PM Workstation Name: [email or web address]
[2021-04-03 18:28] LABS: Alanine Aminotransferase 30 units/L (7-56); BUN/Creatinine Ratio 18; Blood Urea Nitrogen 18 mg/dL (7-17); Calcium 8.4 mg/dL (8.4-10.2); Hemolysis Index 5
[2021-04-03 19:21] LABS: Bacteria,Urine 1+ /HPF (Negative); Bilirubin,Urine NEG (Negative); Blood,Urine SM (Negative); Color,Urine Yellow (Yellow); Mucus,Urine FEW /HPF
--- NOTE | 2021-04-04 06:11 | Emergency Department Report ---
ED General Adult HPI - General Chief complaint: Weakness Stated complaint: WEAKNESS Time Seen by Provider: 04/03/21 17:31 Source: patient Mode of arrival: Ambulatory Limitations: No Limitations - History of Present Illness Initial comments: This is a 55-year-old female who states she is "prediabetic" and not on any medication for diabetes. She states she came to the emergency room yesterday because she was feeling weak. She stated that she was in a foyer and felt like was going to pass out. She did not lose consciousness. She took a bus down to the emergency department for evaluation. She is currently being cared for in the [facility] for her hypothyroidism and hypoparathyroidism. Additionally, she has a history of rhabdomyolysis. She had multiple electrolyte disorders which required admission and 2019. She had a SIRS syndrome but no focus of infection. She tells me that she has never had a life-threatening infection. Apparently she was also found to have rhabdomyolysis although it looks like her highest level was less than 1300. Patient has had laboratory testing and urinalysis prior to my arrival. She was in the room on my encounter. Apparently she has been able to walk around the emergency department without any symptomatic weakness. She is not complaining of weakness at the time of my encounter. Patient tells me on Monday she had a Covid test and it was negative. She has not been vaccinated. 2019 HOSPITAIZATION FOR HYPOCALCEMIA/RHABDO: Hospitalization Reason for admission: General weakness /hypocalcemia Condition: Stable Pertinent studies: CXR : no acute abnormality Hospital course: 53 year old -[place] female patient with history of hypothyroidism and hypocalcemia secondary to hypoparathyroidism was admitted through ED with history of generalized weakness with poor mobility,history of leg swelling, muscle cramps, numbness in legs, chills without fever, shortness of breath on mild exertion, lightheadedness. Symptomatically managed,replacement therapy with calcium and vitD. Rhabdomyolysis improved. Today patient is comfortable, no new complaints. Vital signs stable,Physical exam is unremarkable. 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 Corrected calcium level is 6, improved s/p IV calcium gluconate, oral calcium/vitamin D IV calcium when necessary, consider nephrology consult if no improvement --Rhabdomyolysis; CK levels trending down Continue IV fluid, will monitor CK level --SIRS; Probably due to noninfectious process Chest x-ray negative, urinalysis pending --Hypothyroidism; continue Synthroid --Hypertension; well controlled on antihypertensives, PRN medications --History of alcohol dependence/alcohol withdrawal Continue CIWA protocol, Advised to quit alcohol use Life Style modification recommended Disposition: TO HOME OR SELFCARE Time spent for discharge: 32 min - Related Data Previous Rx's Medication Instructions Recorded Last Taken Type Multivitamins-Mineral [Theragran-M] 1 each PO DAILY 30 Days tablet 01/08/14 1 Day Ago Rx ~11/08/15 Calcium Carbonate/Vitamin D3 1 tab PO QDAY #30 tablet 12/18/15 Unknown Rx [Calcium 600-Vit D3 800 Tablet] Gabapentin 600 mg PO Q8HR #90 capsule 08/17/18 Unknown Rx Calcium Carbonate [Calcium] 500 mg PO TID #90 tablet 04/01/19 Unknown Rx Calc Carb/Vit D 500 mg-200 Uni 2 each PO BID #60 tablet 08/20/19 Unknown Rx [Oysco D 500 mg-200 Unit] Ferrous Gluconate [Fergon 325 MG 324 mg PO QDAY #30 tablet 08/20/19 Unknown Rx tab] Folic Acid [Folvite] 1 mg PO DAILY #30 tablet 08/20/19 Unknown Rx Furosemide [Lasix TAB] 20 mg PO QDAY #30 tablet 08/20/19 Unknown Rx Gabapentin 300 mg PO Q8HR #90 capsule 08/20/19 Unknown Rx Levothyroxine [Synthroid] 75 mcg PO QAM #30 tablet 08/20/19 Unknown Rx Metoprolol [Lopressor TAB] 25 mg PO BID #60 tablet 08/20/19 Unknown Rx Sulfamethoxazole/Trimethoprim 1 each PO BID #14 tablet 08/20/19 Unknown Rx [Bactrim DS TAB] amLODIPine 10 mg PO DAILY #30 tab 08/20/19 Unknown Rx hydroCHLOROthiazide [HCTZ] 25 mg PO QDAY #30 capsule 08/20/19 Unknown Rx Ciprofloxacin HCl [Ciprofloxacin 500 mg PO Q12HR #14 tab 09/16/19 Unknown Rx TAB] HYDROcodone/APAP 5-325 [[place] 1 each PO Q6HR PRN #14 tablet 09/16/19 Unknown Rx 5/325] Magnesium Oxide 400 mg PO QDAY #30 tablet 04/04/21 Unknown Rx Allergies Allergy/AdvReac Type Severity Reaction Status Date / Time No Known Allergies Allergy Verified 03/29/19 13:28 ED Review of Systems ROS: Stated complaint: WEAKNESS Other details as noted in HPI Constitutional: weakness. denies: chills, fever Eyes: denies: eye pain, vision change ENT: denies: ear pain, throat pain Respiratory: denies: cough, shortness of breath, wheezing Cardiovascular: denies: chest pain, palpitations Endocrine: no symptoms reported Gastrointestinal: denies: abdominal pain, nausea, vomiting, diarrhea Genitourinary: other (States sometimes is incontinent). denies: urgency, dysuria, discharge Musculoskeletal: other (No leg pain some ankle swelling). denies: back pain, joint swelling Skin: other (Points out chronic toe fungus). denies: rash, lesions Neurological: denies: headache, weakness, paresthesias Psychiatric: denies: anxiety, depression Hematological/Lymphatic: denies: easy bleeding, easy bruising ED Past Medical Hx - Past Medical History Hx Hypertension: Yes Hx Congestive Heart Failure: No Hx Diabetes: Yes (States "prediabetic" not on medication) Hx Sickle Cell Disease: No Hx Seizures: No Hx Kidney Stones: Yes Hx Asthma: No Hx COPD: No Hx HIV: No Additional medical history: anemia. low calcium. Hypothyroidism. ALCOHOLIC - Surgical History Additional Surgical History: thyroid and parathyroid removed - Social History Smoking Status: Never Smoker Substance Use Type: None - Medications Home Medications: Home Medications Medication Instructions Recorded Confirmed Last Taken Type Multivitamins-Mineral [Theragran-M] 1 each PO DAILY 30 Days tablet 01/08/14 03/30/19 1 Day Ago Rx ~11/08/15 Calcium Carbonate/Vitamin D3 1 tab PO QDAY #30 tablet 12/18/15 03/30/19 Unknown Rx [Calcium 600-Vit D3 800 Tablet] Gabapentin 600 mg PO Q8HR #90 capsule 08/17/18 03/30/19 Unknown Rx Calcium Carbonate [Calcium] 500 mg PO TID #90 tablet 04/01/19 Unknown Rx Calc Carb/Vit D 500 mg-200 Uni 2 each PO BID #60 tablet 08/20/19 Unknown Rx [[place] D 500 mg-200 Unit] Ferrous Gluconate [Fergon 325 MG 324 mg PO QDAY #30 tablet 08/20/19 Unknown Rx tab] Folic Acid [Folvite] 1 mg PO DAILY #30 tablet 08/20/19 Unknown Rx Furosemide [Lasix TAB] 20 mg PO QDAY #30 tablet 08/20/19 Unknown Rx Gabapentin 300 mg PO Q8HR #90 capsule 08/20/19 Unknown Rx Levothyroxine [Synthroid] 75 mcg PO QAM #30 tablet 08/20/19 Unknown Rx Metoprolol [Lopressor TAB] 25 mg PO BID #60 tablet 08/20/19 Unknown Rx Sulfamethoxazole/Trimethoprim 1 each PO BID #14 tablet 08/20/19 Unknown Rx [Bactrim DS TAB] amLODIPine 10 mg PO DAILY #30 tab 08/20/19 Unknown Rx hydroCHLOROthiazide [HCTZ] 25 mg PO QDAY #30 capsule 08/20/19 Unknown Rx Ciprofloxacin HCl [Ciprofloxacin 500 mg PO Q12HR #14 tab 09/16/19 Unknown Rx TAB] HYDROcodone/APAP 5-325 [[place] 1 each PO Q6HR PRN #14 tablet 09/16/19 Unknown Rx 5/325] Magnesium Oxide 400 mg PO QDAY #30 tablet 04/04/21 Unknown Rx ED Physical Exam - General Limitations: No Limitations General appearance: alert, in no apparent distress - Head Head exam: Present: atraumatic, normocephalic - Eye Eye exam: Present: normal appearance. Absent: scleral icterus - ENT ENT exam: Present: mucous membranes moist - Neck Neck exam: Present: normal inspection - Respiratory Respiratory exam: Present: normal lung sounds bilaterally. Absent: respiratory distress - Cardiovascular Cardiovascular Exam: Present: regular rate, normal rhythm. Absent: systolic murmur, diastolic murmur, rubs, gallop - GI/Abdominal GI/Abdominal exam: Present: soft, normal bowel sounds. Absent: distended, tenderness, guarding, rebound, rigid - Extremities Exam Extremities exam: Present: normal inspection, other (Mild ankle edema) - Back Exam Back exam: Present: normal inspection - Neurological Exam Neurological exam: Present: alert, oriented X3, CN II-XII intact. Absent: motor sensory deficit - Psychiatric Psychiatric exam: Present: normal affect, normal mood - Skin Skin exam: Present: warm, dry, intact, other (Looks like has bad nail hygiene and perhaps some distal onychomycosis. The nailbeds look normal ). Absent: rash ED Course Vital Signs 0504/04/21 04/04/21 17:30 05:30 06:45 Temperature 99.0 F 98 F Pulse Rate 97 H 66 68 Respiratory 20 12 13 Rate Blood Pressure 169/94 Blood Pressure 138/71 150/68 [Left] O2 Sat by Pulse 99 100 100 Oximetry - Reevaluation(s) Reevaluation #1: Patient's lactic acid level is normal. Source of infection search was essentially negative with negative urine and chest x-ray. Perhaps the patient has a viral illness. She is appropriate for outpatient disposition. I will place her on some supplemental magnesium considering her hypomagnesemia. 04/04/21 08:21 ED Medical Decision Making - Lab Data Result diagrams: 04/03/21 17:40 04/03/21 17:40 Laboratory Results - last 24 hr 04/03/21 04/03/21 04/03/21 17:40 17:40 17:40 WBC 18.1 H RBC 4.07 Hgb 13.2 Hct 39.0 MCV 96 MCH 32 MCHC 34 RDW 14.6 Plt Count 359 Lymph % (Auto) 17.0 [place] % (Auto) 6.2 Eos % (Auto) 0.3 Baso % (Auto) 0.2 Lymph # (Auto) 3.1 [place] # (Auto) 1.1 H Eos # (Auto) 0.1 Baso # (Auto) 0.0 Seg Neutrophils % 76.3 H Seg Neutrophils # 13.8 H Sodium 140 Potassium 3.6 Chloride 95.0 L Carbon Dioxide 31 H Anion Gap 18 BUN 18 H Creatinine 1.0 Estimated GFR > 60 BUN/Creatinine Ratio 18 Glucose 116 H Calcium 8.4 Magnesium 1.60 L Total Bilirubin 0.30 AST 24 ALT 30 Alkaline Phosphatase 119 Total Creatine Kinase 91 Troponin T < 0.010 NT-Pro-B Natriuret Pep 58.29 Total Protein 8.0 Albumin 4.0 Albumin/Globulin Ratio 1.0 TSH 2.950 Urine Color Urine Turbidity Urine pH Ur Specific [place] Urine Protein Urine Glucose (UA) Urine Ketones Urine Blood Urine Nitrite Urine Bilirubin Urine Urobilinogen Ur Leukocyte Esterase Urine WBC (Auto) Urine RBC (Auto) U Epithel Cells (Auto) Urine Bacteria (Auto) Urine Mucus 04/03/21 18:47 WBC RBC Hgb Hct MCV MCH MCHC RDW Plt Count Lymph % (Auto) [place] % (Auto) Eos % (Auto) Baso % (Auto) Lymph # (Auto) [place] # (Auto) Eos # (Auto) Baso # (Auto) Seg Neutrophils % Seg Neutrophils # Sodium Potassium Chloride Carbon Dioxide Anion Gap BUN Creatinine Estimated GFR BUN/Creatinine Ratio Glucose Calcium Magnesium Total Bilirubin AST ALT Alkaline Phosphatase Total Creatine Kinase Troponin T NT-Pro-B Natriuret Pep Total Protein Albumin Albumin/Globulin Ratio TSH Urine Color Yellow Urine Turbidity Slightly-cloudy Urine pH 6.0 Ur Specific [place] 1.021 Urine Protein 30 mg/dl Urine Glucose (UA) Neg Urine Ketones Neg Urine Blood Sm Urine Nitrite Neg Urine Bilirubin Neg Urine Urobilinogen 4.0 Ur Leukocyte Esterase Neg Urine WBC (Auto) 1.0 Urine RBC (Auto) 1.0 U Epithel Cells (Auto) 5.0 Urine Bacteria (Auto) 1+ Urine Mucus Few - EKG Data -: EKG Interpreted by Me EKG shows normal: sinus rhythm, axis (Left axis deviation), intervals, QRS complexes, ST-T waves - EKG Data Interpretation: nonspecific ST-T wave alisson Critical care attestation.: If time is entered above; I have spent that time in minutes in the direct care of this critically ill patient, excluding procedure time. ED Disposition Clinical Impression: Hypomagnesemia, Weakness Leukocytosis Qualifiers: Leukocytosis type: unspecified Qualified Code(s): D72.829 - Elevated white blood cell count, unspecified Disposition: DC- TO HOME OR SELFCARE Is pt being admited?: No Does the pt Need Aspirin: No Condition: Stable Additional Instructions: Follow-up with Dr. Luis Richards or your usual [facility]. Your magnesium level was a little low. Your white blood cell count was a bit high. This may be indicative of a viral illness. There did not appear to be any sign of serious bacterial illness. However if you develop a fever seek reevaluation. Return to the emergency department any acute change or problem. Prescriptions: Magnesium Oxide 400 mg PO QDAY #30 tablet Referrals: LUIS RICHARDS MD [Primary Care Provider] - 3-5 Days Usual, [facility] [Other] - 3-5 Days Time of Disposition: 08:26
[2021-04-04] MEDS ORDERED: MAGNESIUM OXIDE 400 MG TAB PO ONE (06:29)
[2021-04-04 06:47] VITALS: BP 150/68
--- NOTE | 2021-04-06 17:44 | Electrocardiograph Report ---
[facility] Test Date: 2021-04-03 Test Time: 17:36:50 Pat Name: ROSEANN WONG Department: Room: Gender: F Load Out Person: CHERELLE : 1965 Requested By: DEEPALI SANDERS Order Number: [id number] Reading MD: Mallika Sanchez Measurements Intervals [employer] Rate: 89 P: 52 NC: 163 QRS: -20 QRSD: 92 T: -13 QT: 411 QTc: 500 Interpretive Statements Sinus rhythm Poor R wave progression No previous ECG available for comparison Electronically Signed On 04-06-2021 17:44:07 EDT by Mallika Sanchez
== END 2021-04-04 10:01 | disposition home or self-care (01) ==
LOC: ED 16:53
DX: E83.42 Hypomagnesemia (principal); D72.829 Elevated white blood cell count, unspecified; R53.1 Weakness; I10 Essential (primary) hypertension; E03.9 Hypothyroidism, unspecified; E11.9 Type 2 diabetes mellitus without complications; D64.9 Anemia, unspecified; Z79.899 Other long term (current) drug therapy; Z98.890 Other specified postprocedural states
CPT/HCPCS: 36415; 71046; 80053; 81001; 82140; 82550; 82553; 83735; 83880; 84443; 84484; 85025; 87040; 93005

== ENCOUNTER 2021-08-10 12:49 | Emergency (ER) | payer OTHER ==
[2021-08-10 15:01] VITALS: BP 174/88
[2021-08-10] MEDS ORDERED: IBUPROFEN 600 MG TAB PO ONE ×2 (15:05→17:58)
--- NOTE | 2021-08-10 15:11 | Event Note ---
ED Screening Note Date of service: 08/10/21 Time: 15:10 ED Screening Note: Patient complains of sudden onset of bilateral cramping to her arms and hands today History of rhabdo and alcohol abuse This initial assessment/diagnostic orders/clinical plan/treatment(s) is/are subject to change based on patients health status, clinical progression and re- assessment by fellow clinical providers in the ED. Further treatment and workup at subsequent clinical providers discretion. Patient/guardian urged not to elope from the ED as their condition may be serious if not clinically assessed and managed. Initial orders include: Labs
[2021-08-10 15:35] LABS: Hematocrit 38.4 % (30.3-42.9); Hemoglobin 12.9 gm/dl (10.1-14.3); Mean Corpuscular HGB Conc 34 % (30-34); Mean Corpuscular Volume 97 fl (79-97); Platelet Count 267 K/mm3 (140-440); Red Blood Count 3.95 M/mm3 (3.65-5.03); Red Cell Distribution Width 13.9 % (13.2-15.2)
[2021-08-10 15:44] LABS: INR 1.07 (0.87-1.13)
[2021-08-10 15:55] LABS: Alanine Aminotransferase 33 units/L (7-56); Albumin 4.3 g/dL (3.9-5); BUN/Creatinine Ratio 7; Blood Urea Nitrogen 6 mg/dL (7-17); Calcium 6.3 mg/dL (8.4-10.2); Hemolysis Index 30
[2021-08-10] MEDS ORDERED: CALCIUM CARBONATE 500 MG TAB CHEW PO ONE (16:33)
--- NOTE | 2021-08-10 16:52 | Emergency Department Report ---
ED General Adult HPI - General Chief complaint: Pain General Stated complaint: BODYCRAMPS Time Seen by Provider: 08/10/21 16:19 Source: patient Mode of arrival: Ambulatory Limitations: No Limitations - History of Present Illness Initial comments: Patient presents with a couple day history of generalized body pain. She has had rhabdo before. She is concerned that she may have muscle breakdown again. She admits that she drinks a lot of alcohol. There has been no recent travel or trauma. She has no chest pain or shortness of breath. There is no abdominal pain. She states that she just hurting all over in her body. She has no cough or congestion. There is no fever. She does not think this is coronavirus that she has had no symptoms of infection. She came in for evaluation and treatment. She had been seen by one of the APPs previously and an MSE has been started. Severity scale (0 -10): 10 - Related Data Previous Rx's Medication Instructions Recorded Last Taken Type Multivitamins-Mineral [Theragran-M] 1 each PO DAILY 30 Days tablet 01/08/14 1 Day Ago Rx ~11/08/15 Calcium Carbonate/Vitamin D3 1 tab PO QDAY #30 tablet 12/18/15 Unknown Rx [Calcium 600-Vit D3 800 Tablet] Gabapentin 600 mg PO Q8HR #90 capsule 08/17/18 Unknown Rx Calcium Carbonate [Calcium] 500 mg PO TID #90 tablet 04/01/19 Unknown Rx Calc Carb/Vit D 500 mg-200 Uni 2 each PO BID #60 tablet 08/20/19 Unknown Rx [Oysco D 500 mg-200 Unit] Ferrous Gluconate [Fergon 325 MG 324 mg PO QDAY #30 tablet 08/20/19 Unknown Rx tab] Folic Acid [Folvite] 1 mg PO DAILY #30 tablet 08/20/19 Unknown Rx Furosemide [Lasix TAB] 20 mg PO QDAY #30 tablet 08/20/19 Unknown Rx Gabapentin 300 mg PO Q8HR #90 capsule 08/20/19 Unknown Rx Levothyroxine [Synthroid] 75 mcg PO QAM #30 tablet 08/20/19 Unknown Rx Metoprolol [Lopressor TAB] 25 mg PO BID #60 tablet 08/20/19 Unknown Rx Sulfamethoxazole/Trimethoprim 1 each PO BID #14 tablet 08/20/19 Unknown Rx [Bactrim DS TAB] amLODIPine 10 mg PO DAILY #30 tab 08/20/19 Unknown Rx hydroCHLOROthiazide [HCTZ] 25 mg PO QDAY #30 capsule 08/20/19 Unknown Rx Ciprofloxacin HCl [Ciprofloxacin 500 mg PO Q12HR #14 tab 09/16/19 Unknown Rx TAB] HYDROcodone/APAP 5-325 [[place] 1 each PO Q6HR PRN #14 tablet 09/16/19 Unknown Rx 5/325] Magnesium Oxide 400 mg PO QDAY #30 tablet 04/04/21 Unknown Rx Ibuprofen [Motrin 600 MG tab] 600 mg PO Q8H PRN #20 tablet 08/10/21 Unknown Rx Allergies Allergy/AdvReac Type Severity Reaction Status Date / Time No Known Allergies Allergy Verified 03/29/19 13:28 ED Review of Systems ROS: Stated complaint: BODYCRAMPS Other details as noted in HPI Comment: All other systems reviewed and negative Constitutional: denies: fever Eyes: denies: eye pain ENT: denies: throat pain Respiratory: denies: cough Cardiovascular: denies: chest pain Endocrine: denies: unexplained weight loss Gastrointestinal: denies: abdominal pain Genitourinary: denies: dysuria Musculoskeletal: denies: back pain Skin: denies: rash Neurological: denies: headache Hematological/Lymphatic: denies: easy bruising ED Past Medical Hx - Past Medical History Previous Medical History?: Yes Hx Hypertension: Yes Hx Congestive Heart Failure: No Hx Diabetes: Yes (States "prediabetic" not on medication) Hx Sickle Cell Disease: No Hx Seizures: No Hx Kidney Stones: Yes Hx Asthma: No Hx COPD: No Hx HIV: No Additional medical history: anemia. low calcium. Hypothyroidism. ALCOHOLIC - Surgical History Past Surgical History?: Yes Additional Surgical History: thyroid and parathyroid removed - Family History Family history: diabetes - Social History Smoking Status: Never Smoker Substance Use Type: None - Medications Home Medications: Home Medications Medication Instructions Recorded Confirmed Last Taken Type Multivitamins-Mineral [Theragran-M] 1 each PO DAILY 30 Days tablet 01/08/14 03/30/19 1 Day Ago Rx ~11/08/15 Calcium Carbonate/Vitamin D3 1 tab PO QDAY #30 tablet 12/18/15 03/30/19 Unknown Rx [Calcium 600-Vit D3 800 Tablet] Gabapentin 600 mg PO Q8HR #90 capsule 08/17/18 03/30/19 Unknown Rx Calcium Carbonate [Calcium] 500 mg PO TID #90 tablet 04/01/19 Unknown Rx Calc Carb/Vit D 500 mg-200 Uni 2 each PO BID #60 tablet 08/20/19 Unknown Rx [Oysco D 500 mg-200 Unit] Ferrous Gluconate [Fergon 325 MG 324 mg PO QDAY #30 tablet 08/20/19 Unknown Rx tab] Folic Acid [Folvite] 1 mg PO DAILY #30 tablet 08/20/19 Unknown Rx Furosemide [Lasix TAB] 20 mg PO QDAY #30 tablet 08/20/19 Unknown Rx Gabapentin 300 mg PO Q8HR #90 capsule 08/20/19 Unknown Rx Levothyroxine [Synthroid] 75 mcg PO QAM #30 tablet 08/20/19 Unknown Rx Metoprolol [Lopressor TAB] 25 mg PO BID #60 tablet 08/20/19 Unknown Rx Sulfamethoxazole/Trimethoprim 1 each PO BID #14 tablet 08/20/19 Unknown Rx [Bactrim DS TAB] amLODIPine 10 mg PO DAILY #30 tab 08/20/19 Unknown Rx hydroCHLOROthiazide [HCTZ] 25 mg PO QDAY #30 capsule 08/20/19 Unknown Rx Ciprofloxacin HCl [Ciprofloxacin 500 mg PO Q12HR #14 tab 09/16/19 Unknown Rx TAB] HYDROcodone/APAP 5-325 [[place] 1 each PO Q6HR PRN #14 tablet 09/16/19 Unknown Rx 5/325] Magnesium Oxide 400 mg PO QDAY #30 tablet 04/04/21 Unknown Rx Ibuprofen [Motrin 600 MG tab] 600 mg PO Q8H PRN #20 tablet 08/10/21 Unknown Rx ED Physical Exam - General Limitations: No Limitations, Other (Pulse ox was noted and normal. Is not hypoxic.) General appearance: alert, in no apparent distress, obese - Head Head exam: Present: atraumatic, normocephalic, normal inspection - Eye Eye exam: Present: normal appearance, EOMI. Absent: scleral icterus - ENT ENT exam: Present: normal exam, normal orophraynx, mucous membranes moist - Neck Neck exam: Present: normal inspection. Absent: meningismus - Respiratory Respiratory exam: Present: normal lung sounds bilaterally. Absent: respiratory distress - Cardiovascular Cardiovascular Exam: Present: regular rate, normal rhythm - GI/Abdominal GI/Abdominal exam: Present: soft. Absent: distended, tenderness - Extremities Exam Extremities exam: Present: tenderness (Diffuse), normal capillary refill. Absent: pedal edema - Back Exam Back exam: Absent: CVA tenderness (R), CVA tenderness (L) - Neurological Exam Neurological exam: Present: alert, oriented X3, normal gait. Absent: motor sensory deficit - Psychiatric Psychiatric exam: Present: normal affect, normal mood - Skin Skin exam: Present: warm, dry ED Course Vital Signs 08/10/21 14:49 Temperature 98.0 F Pulse Rate 101 H Respiratory 20 Rate Blood Pressure 174/88 O2 Sat by Pulse 99 Oximetry - Reevaluation(s) Reevaluation #1: 08/10/21 16:51 Labs have been reviewed. Patient was given oral electrolyte replacement. She was subsequently discharged. ED Medical Decision Making - Lab Data Result diagrams: 08/10/21 15:15 08/10/21 15:15 - Medical Decision Making Patient presented with muscle cramps and body aches related to electrolyte derangement. She related this to her alcohol consumption. She does not have symptoms of coronavirus. She does not have hypokalemia. She does not require admission for electrolyte derangement. She was treated symptomatically and referred for outpatient evaluation and follow-up. Patient has no evidence of alcohol withdrawal. She is not tremulous or tachycardic. She is not responding to extraneous stimuli. There is no evidence of DTs. Critical Care Time: No Critical care attestation.: If time is entered above; I have spent that time in minutes in the direct care of this critically ill patient, excluding procedure time. ED Disposition Clinical Impression: Myalgia, Hypocalcemia, Hypomagnesemia Disposition: 01 HOME / SELF CARE / HOMELESS Is pt being admited?: No Does the pt Need Aspirin: No Condition: Stable Instructions: Hypomagnesemia, Hypocalcemia, Adult, Musculoskeletal Pain Additional Instructions: Drink plenty of water. Seek help to stop drinking alcohol. Take a multivitamin. Eat a healthy and balanced diet. Return for problems. Your blood pressure was elevated. Please follow-up with a primary care physician for further management. Prescriptions: Ibuprofen [Motrin 600 MG tab] 600 mg PO Q8H PRN #20 tablet PRN Reason: Pain Referrals: PRIMARY CAREMD [Referring] - 3-5 Days CODY GAMBOA MD [Staff Physician] - 3-5 Days
[2021-08-10] MEDS ORDERED: HALOPERIDOL LACTATE 5 MG/1 ML INJ IM ONE (18:33)
[2021-08-11] MEDS ORDERED: MAGNESIUM OXIDE 400 MG TAB PO ONE (16:40)
== END 2021-08-10 18:58 | disposition home or self-care (01) ==
LOC: ED 12:49
DX: M79.10 Myalgia, unspecified site (principal); E83.51 Hypocalcemia; E83.42 Hypomagnesemia; I10 Essential (primary) hypertension
CPT/HCPCS: 36415; 80053; 82550; 83735; 84100; 84484; 85027; 85610; 96372; 99283; J1630; 80320; G0480

== ENCOUNTER 2021-08-11 07:35 | Emergency (ER) | payer SELFPAY ==
[2021-08-11] MEDS ORDERED: cloNIDine 0.1 MG TAB PO ONE (08:15)
--- NOTE | 2021-08-11 09:35 | Emergency Department Report ---
ED Recheck HPI - General Chief Complaint: Weakness Stated Complaint: WEAKNESS Time Seen by Provider: 08/11/21 08:13 Source: patient Mode of arrival: Ambulatory Limitations: No Limitations - History of Present Illness Initial Comments: This is a 55-year-old female that was discharged today nontoxic, well nourished in appearance, no acute signs of distress presents to the ED for blood pressure medication refill. Patient states she takes Norvasc 10 mg daily and HCTZ 25 mg daily and has been out of her medication for the past several days. Patient oth erwise denies any symptoms or complaints. Denies any headache, chest pain, shortness of breath, fever, chills, nausea, vomiting, numbness or tingling. Denies any urinary symptoms. Allergies include lisinopril. MD Complaint: medication refill request -: days(s) Returns Today for: request for prescription Symptoms Since Prior Visit: no new symptoms Associated Symptoms: none. denies: fever, chills, chest pain, shortness of breath, rash, malaise, nas[place], abdominal pain - Related Data Previous Rx's Medication Instructions Recorded Last Taken Type Multivitamins-Mineral [Theragran-M] 1 each PO DAILY 30 Days tablet 01/08/14 1 Day Ago Rx ~11/08/15 Calcium Carbonate/Vitamin D3 1 tab PO QDAY #30 tablet 12/18/15 Unknown Rx [Calcium 600-Vit D3 800 Tablet] Gabapentin 600 mg PO Q8HR #90 capsule 08/17/18 Unknown Rx Calcium Carbonate [Calcium] 500 mg PO TID #90 tablet 04/01/19 Unknown Rx Calc Carb/Vit D 500 mg-200 Uni 2 each PO BID #60 tablet 08/20/19 Unknown Rx [Oysco D 500 mg-200 Unit] Ferrous Gluconate [Fergon 325 MG 324 mg PO QDAY #30 tablet 08/20/19 Unknown Rx tab] Folic Acid [Folvite] 1 mg PO DAILY #30 tablet 08/20/19 Unknown Rx Furosemide [Lasix TAB] 20 mg PO QDAY #30 tablet 08/20/19 Unknown Rx Gabapentin 300 mg PO Q8HR #90 capsule 08/20/19 Unknown Rx Levothyroxine [Synthroid] 75 mcg PO QAM #30 tablet 08/20/19 Unknown Rx Metoprolol [Lopressor TAB] 25 mg PO BID #60 tablet 08/20/19 Unknown Rx Sulfamethoxazole/Trimethoprim 1 each PO BID #14 tablet 08/20/19 Unknown Rx [Bactrim DS TAB] Ciprofloxacin HCl [Ciprofloxacin 500 mg PO Q12HR #14 tab 09/16/19 Unknown Rx TAB] HYDROcodone/APAP 5-325 [Odin 1 each PO Q6HR PRN #14 tablet 09/16/19 Unknown Rx 5/325] Magnesium Oxide 400 mg PO QDAY #30 tablet 04/04/21 Unknown Rx Ibuprofen [Motrin 600 MG tab] 600 mg PO Q8H PRN #20 tablet 08/10/21 Unknown Rx amLODIPine 10 mg PO DAILY #30 tab 08/11/21 Unknown Rx hydroCHLOROthiazide [HCTZ] 25 mg PO QDAY #30 capsule 08/11/21 Unknown Rx Allergies Allergy/AdvReac Type Severity Reaction Status Date / Time lisinopril Allergy Unknown Verified 08/11/21 07:59 ED Review of Systems ROS: Stated complaint: WEAKNESS Other details as noted in HPI Comment: All other systems reviewed and negative Constitutional: denies: chills, fever Eyes: denies: eye pain, eye discharge, vision change ENT: denies: ear pain, throat pain Respiratory: denies: cough, shortness of breath, wheezing Cardiovascular: denies: chest pain, palpitations Endocrine: no symptoms reported Gastrointestinal: denies: abdominal pain, nausea, diarrhea Genitourinary: denies: urgency, dysuria, discharge Musculoskeletal: denies: back pain, joint swelling, arthralgia Skin: denies: rash, lesions Neurological: denies: headache, weakness, paresthesias Psychiatric: denies: anxiety, depression Hematological/Lymphatic: denies: easy bleeding, easy bruising ED Past Medical Hx - Past Medical History Hx Hypertension: Yes Hx Congestive Heart Failure: No Hx Diabetes: Yes (States "prediabetic" not on medication) Hx Sickle Cell Disease: No Hx Seizures: No Hx Kidney Stones: Yes Hx Asthma: No Hx COPD: No Hx HIV: No Additional medical history: anemia. low calcium. Hypothyroidism. ALCOHOLIC - Surgical History Additional Surgical History: thyroid and parathyroid removed - Social History Smoking Status: Never Smoker Substance Use Type: None - Medications Home Medications: Home Medications Medication Instructions Recorded Confirmed Last Taken Type Multivitamins-Mineral [Theragran-M] 1 each PO DAILY 30 Days tablet 01/08/14 03/30/19 1 Day Ago Rx ~12/20/15 Calcium Carbonate/Vitamin D3 1 tab PO QDAY #30 tablet 12/18/15 03/30/19 Unknown Rx [Calcium 600-Vit D3 800 Tablet] Gabapentin 600 mg PO Q8HR #90 capsule 08/17/18 03/30/19 Unknown Rx Calcium Carbonate [Calcium] 500 mg PO TID #90 tablet 04/01/19 Unknown Rx Calc Carb/Vit D 500 mg-200 Uni 2 each PO BID #60 tablet 08/20/19 Unknown Rx [Oysco D 500 mg-200 Unit] Ferrous Gluconate [Fergon 325 MG 324 mg PO QDAY #30 tablet 08/20/19 Unknown Rx tab] Folic Acid [Folvite] 1 mg PO DAILY #30 tablet 08/20/19 Unknown Rx Furosemide [Lasix TAB] 20 mg PO QDAY #30 tablet 08/20/19 Unknown Rx Gabapentin 300 mg PO Q8HR #90 capsule 08/20/19 Unknown Rx Levothyroxine [Synthroid] 75 mcg PO QAM #30 tablet 08/20/19 Unknown Rx Metoprolol [Lopressor TAB] 25 mg PO BID #60 tablet 08/20/19 Unknown Rx Sulfamethoxazole/Trimethoprim 1 each PO BID #14 tablet 08/20/19 Unknown Rx [Bactrim DS TAB] Ciprofloxacin HCl [Ciprofloxacin 500 mg PO Q12HR #14 tab 09/16/19 Unknown Rx TAB] HYDROcodone/APAP 5-325 [Odin 1 each PO Q6HR PRN #14 tablet 09/16/19 Unknown Rx 5/325] Magnesium Oxide 400 mg PO QDAY #30 tablet 04/04/21 Unknown Rx Ibuprofen [Motrin 600 MG tab] 600 mg PO Q8H PRN #20 tablet 08/10/21 Unknown Rx amLODIPine 10 mg PO DAILY #30 tab 08/11/21 Unknown Rx hydroCHLOROthiazide [HCTZ] 25 mg PO QDAY #30 capsule 08/11/21 Unknown Rx ED Physical Exam - General Limitations: No Limitations General appearance: alert, in no apparent distress - Head Head exam: Present: atraumatic, normocephalic - Eye Eye exam: Present: normal appearance - Neck Neck exam: Present: normal inspection, full ROM. Absent: lymphadenopathy - Respiratory Respiratory exam: Present: normal lung sounds bilaterally. Absent: respiratory distress, wheezes, rales, rhonchi, stridor, chest wall tenderness, accessory muscle use, decreased breath sounds, prolonged expiratory - Cardiovascular Cardiovascular Exam: Present: regular rate, normal rhythm, normal heart sounds. Absent: bradycardia, tachycardia, irregular rhythm, systolic murmur, diastolic murmur, rubs, gallop - Extremities Exam Extremities exam: Present: full ROM - Back Exam Back exam: Present: full ROM - Neurological Exam Neurological exam: Present: alert, oriented X3, normal gait - Psychiatric Psychiatric exam: Present: normal affect, normal mood - Skin Skin exam: Present: warm, dry, intact, normal color. Absent: rash ED Course Vital Signs 08/11/21 08/11/21 08:00 10:58 Temperature 97.7 F Pulse Rate 78 Respiratory 20 18 Rate Blood Pressure 200/108 159/87 [Right] O2 Sat by Pulse 100 99 Oximetry - Reevaluation(s) Reevaluation #1: 08/11/21 09:37 Patient is speaking in full sentences with no signs of distress noted. ED Recheck MDM - Medical Decision Making 55-year-old female that presents with hypertension and blood pressure medication refill. Patient otherwise is stable and was examined by me. Physical exam is unremarkable. Patient received Catapres as a initial starting dose and patient will be placed on her blood pressure medication of Norvasc and HCTZ. According to ACEP: (1) in ED patients with asymptomatic markedly elevated blood pressure, routine screening for acute target organ injury (eg, serum creatinine, urinalysis, ECG) is not required. (1) In patients with asymptomatic markedly elevated blood pressure, routine ED medical intervention is not required. Patient was instructed to follow-up with a primary care doctor in 3-5 days or if symptoms worsen and continue return to emergency room as soon as possible. At time of discharge, the patient does not seem toxic or ill in appearance. No acute signs of distress noted. Patient agrees to discharge treatment plan of care. No further questions noted by the patient. Critical care attestation.: If time is entered above; I have spent that time in minutes in the direct care of this critically ill patient, excluding procedure time. ED Disposition Clinical Impression: Noncompliance with medication regimen, Medication refill HTN (hypertension) Qualifiers: Hypertension type: unspecified Qualified Code(s): I10 - Essential (primary) hypertension Disposition: 01 HOME / SELF CARE / HOMELESS Is pt being admited?: No Does the pt Need Aspirin: No Condition: Stable Instructions: Managing Your Hypertension, Hypertension, Adult, Hypertension (ED) Additional Instructions: Follow-up with a primary care doctor in 3-5 days or if symptoms worsen and continue return to emergency room as soon as possible. Keep it daily diary of your blood pressure 3 times daily and presented to your primary care doctor. Prescriptions: amLODIPine 10 mg PO DAILY #30 tab hydroCHLOROthiazide [HCTZ] 25 mg PO QDAY #30 capsule Referrals: PRIMARY MD SYLWIA [Primary Care Provider] - 3-5 Days OCDY GAMBOA MD [Staff Physician] - 3-5 Days Time of Disposition: 11:00
[2021-08-11 10:59] VITALS: BP 159/87
== END 2021-08-11 11:08 | disposition home or self-care (01) ==
LOC: ED 07:35
DX: I10 Essential (primary) hypertension (principal); Z76.0 Encounter for issue of repeat prescription; Z91.14 Patient's other noncompliance with medication regimen; E11.9 Type 2 diabetes mellitus without complications; Z88.8 Allergy status to other drugs, medicaments and biological substances; Z79.899 Other long term (current) drug therapy
CPT/HCPCS: 99282

== ENCOUNTER 2021-09-12 07:57 | Emergency (ER) | payer SELFPAY ==
--- NOTE | 2021-09-12 08:16 | Emergency Department Report ---
ED General Adult HPI - General Chief complaint: Abdominal Pain Stated complaint: DIARRHEA/DETOX PUI?: No Time Seen by Provider: 09/12/21 08:15 Source: patient, EMS ( EMS documentation not available at time of chart dictat ion ), RN notes reviewed, old records reviewed Mode of arrival: Stretcher Limitations: No Limitations - History of Present Illness Initial comments: The patient was evaluated in the emergency department for symptoms described in the history of present illness. He/she was evaluated in the context of the [facility] COVID-19 pandemic, which necessitated consideration that the patient might be at risk for infection with the virus that causes COVID-19. Institutional protocols and algorithms that pertain to the evaluation of patients at risk for COVID-19 are in a state of rapid change based on information released by regulatory bodies including the CDC and federal and state organizations. These policies and algorithms were followed during the patient's care in the emergency department. Please note that these policies, procedures and recommendations changed on a rapid basis. The patient is a 55-year-old female. Her past medical history includes BMI of 38, hypothyroidism and hypocalcemia, secondary to hypoparathyroidism. She also has a history of rhabdomyolysis, chronic pain, chronic hypocalcemia, hypertension, alcohol dependence. The patient presents to the ER today with a primary complaint of lower abdominal pain, and diarrhea. The patient reports that she recently finished "an alcohol binge." The patient reports having consumed a number of beers yesterday. She describes generalized weakness, tremors and fatigue. She denies headache, neck pain, chest pain. She denies homicidality and suicidality. She denies wanting to overdose. She denies Covid symptoms. She denies urinary symptoms. She felt improved in the emergency room with supportive care. Patient also endorses wanting to detox from alcohol. -: Gradual Location: abdomen Quality: aching Consistency: constant Improves with: medication Worsens with: movement - Related Data Previous Rx's Medication Instructions Recorded Last Taken Type Multivitamins-Mineral [Theragran-M] 1 each PO DAILY 30 Days tablet 01/08/14 1 Day Ago Rx ~11/08/15 Calcium Carbonate/Vitamin D3 1 tab PO QDAY #30 tablet 12/18/15 Unknown Rx [Calcium 600-Vit D3 800 Tablet] Gabapentin 600 mg PO Q8HR #90 capsule 08/17/18 Unknown Rx Calcium Carbonate [Calcium] 500 mg PO TID #90 tablet 04/01/19 Unknown Rx Calc Carb/Vit D 500 mg-200 Uni 2 each PO BID #60 tablet 08/20/19 Unknown Rx [Oysco D 500 mg-200 Unit] Ferrous Gluconate [Fergon 325 MG 324 mg PO QDAY #30 tablet 08/20/19 Unknown Rx tab] Folic Acid [Folvite] 1 mg PO DAILY #30 tablet 08/20/19 Unknown Rx Furosemide [Lasix TAB] 20 mg PO QDAY #30 tablet 08/20/19 Unknown Rx Gabapentin 300 mg PO Q8HR #90 capsule 08/20/19 Unknown Rx Levothyroxine [Synthroid] 75 mcg PO QAM #30 tablet 08/20/19 Unknown Rx Metoprolol [Lopressor TAB] 25 mg PO BID #60 tablet 08/20/19 Unknown Rx Sulfamethoxazole/Trimethoprim 1 each PO BID #14 tablet 08/20/19 Unknown Rx [Bactrim DS TAB] Ciprofloxacin HCl [Ciprofloxacin 500 mg PO Q12HR #14 tab 09/16/19 Unknown Rx TAB] HYDROcodone/APAP 5-325 [May 1 each PO Q6HR PRN #14 tablet 09/16/19 Unknown Rx 5/325] Magnesium Oxide 400 mg PO QDAY #30 tablet 04/04/21 Unknown Rx Ibuprofen [Motrin 600 MG tab] 600 mg PO Q8H PRN #20 tablet 08/10/21 Unknown Rx amLODIPine 10 mg PO DAILY #30 tab 08/11/21 Unknown Rx hydroCHLOROthiazide [HCTZ] 25 mg PO QDAY #30 capsule 08/11/21 Unknown Rx Allergies Allergy/AdvReac Type Severity Reaction Status Date / Time lisinopril Allergy Angioedema Verified 09/12/21 08:05 ED Review of Systems ROS: Stated complaint: DIARRHEA/DETOX Other details as noted in HPI Constitutional: malaise, weakness. denies: fever Eyes: denies: eye discharge ENT: denies: epistaxis Respiratory: denies: cough Cardiovascular: denies: chest pain Gastrointestinal: abdominal pain, diarrhea. denies: nausea, vomiting Musculoskeletal: back pain, joint swelling, arthralgia, myalgia Neurological: weakness Psychiatric: denies: auditory hallucinations, visual hallucinations, homicidal thoughts, suicidal thoughts ED Past Medical Hx - Past Medical History Hx Hypertension: Yes Hx Congestive Heart Failure: No Hx Diabetes: Yes (States "prediabetic" not on medication) Hx Sickle Cell Disease: No Hx Seizures: No Hx Kidney Stones: Yes Hx Asthma: No Hx COPD: No Hx HIV: No Additional medical history: anemia. low calcium. Hypothyroidism. ALCOHOLIC - Surgical History Additional Surgical History: thyroid and parathyroid removed - Social History Smoking Status: Never Smoker - Medications Home Medications: Home Medications Medication Instructions Recorded Confirmed Last Taken Type Multivitamins-Mineral [Theragran-M] 1 each PO DAILY 30 Days tablet 01/08/14 03/30/19 1 Day Ago Rx ~11/08/15 Calcium Carbonate/Vitamin D3 1 tab PO QDAY #30 tablet 12/18/15 03/30/19 Unknown Rx [Calcium 600-Vit D3 800 Tablet] Gabapentin 600 mg PO Q8HR #90 capsule 08/17/18 03/30/19 Unknown Rx Calcium Carbonate [Calcium] 500 mg PO TID #90 tablet 04/01/19 Unknown Rx Calc Carb/Vit D 500 mg-200 Uni 2 each PO BID #60 tablet 08/20/19 Unknown Rx [Oysco D 500 mg-200 Unit] Ferrous Gluconate [Fergon 325 MG 324 mg PO QDAY #30 tablet 08/20/19 Unknown Rx tab] Folic Acid [Folvite] 1 mg PO DAILY #30 tablet 08/20/19 Unknown Rx Furosemide [Lasix TAB] 20 mg PO QDAY #30 tablet 08/20/19 Unknown Rx Gabapentin 300 mg PO Q8HR #90 capsule 08/20/19 Unknown Rx Levothyroxine [Synthroid] 75 mcg PO QAM #30 tablet 08/20/19 Unknown Rx Metoprolol [Lopressor TAB] 25 mg PO BID #60 tablet 08/20/19 Unknown Rx Sulfamethoxazole/Trimethoprim 1 each PO BID #14 tablet 08/20/19 Unknown Rx [Bactrim DS TAB] Ciprofloxacin HCl [Ciprofloxacin 500 mg PO Q12HR #14 tab 09/16/19 Unknown Rx TAB] HYDROcodone/APAP 5-325 [May 1 each PO Q6HR PRN #14 tablet 09/16/19 Unknown Rx 5/325] Magnesium Oxide 400 mg PO QDAY #30 tablet 04/04/21 Unknown Rx Ibuprofen [Motrin 600 MG tab] 600 mg PO Q8H PRN #20 tablet 08/10/21 Unknown Rx amLODIPine 10 mg PO DAILY #30 tab 08/11/21 Unknown Rx hydroCHLOROthiazide [HCTZ] 25 mg PO QDAY #30 capsule 08/11/21 Unknown Rx ED Physical Exam - General Limitations: No Limitations General appearance: alert, anxious, obese - Head Head exam: Present: atraumatic, normocephalic - Eye Eye exam: Present: normal appearance, EOMI. Absent: nystagmus - ENT ENT exam: Present: normal exam, normal orophraynx, mucous membranes moist, normal external ear exam, other (Mild tongue fasciculations noted) - Neck Neck exam: Present: normal inspection, full ROM. Absent: tenderness, meningismus - Respiratory Respiratory exam: Present: normal lung sounds bilaterally. Absent: respiratory distress, wheezes, rales, rhonchi, stridor, decreased breath sounds - Cardiovascular Cardiovascular Exam: Present: regular rate, normal rhythm, normal heart sounds. Absent: bradycardia, tachycardia, irregular rhythm, systolic murmur, diastolic murmur, rubs, gallop - GI/Abdominal GI/Abdominal exam: Present: soft. Absent: distended, tenderness, guarding, rebound, rigid, pulsatile mass - Extremities Exam Extremities exam: Present: normal inspection (Chronic stasis changes noted in the right lower extremity), full ROM, pedal edema (2+ edema in the bilateral lower extremities), other (2+ pulses noted in the bilateral upper and lower extremities. There is no palpable cord. negative Homans sign. Muscular compartments are soft. The pelvis is stable.). Absent: calf tenderness - Back Exam Back exam: Present: normal inspection, full ROM. Absent: tenderness, CVA tenderness (R), CVA tenderness (L), paraspinal tenderness, vertebral tenderness - Neurological Exam Neurological exam: Present: alert, oriented X3, normal gait, other (No facial droop. Tongue midline. Extraocular movements intact bilaterally. Facial sensation intact to light touch in V1, V2, V3 distribution bilaterally. 5 and a 5 strength in 4 extremities. Sensation intact to light touch in 4 extremities.). Absent: motor sensory deficit - Psychiatric Psychiatric exam: Present: anxious. Absent: homicidal ideation, suicidal ideation - Skin Skin exam: Present: warm, dry, intact, normal color. Absent: rash ED Course Vital Signs 09/12/21 09/12/21 09/12/21 08:01 08:04 08:15 Temperature 97.9 F Pulse Rate 90 96 H 99 H Respiratory 20 14 14 Rate Blood Pressure 188/102 O2 Sat by Pulse 98 99 97 Oximetry 09/12/21 09/12/21 09/12/21 08:31 08:45 09:01 Temperature Pulse Rate 95 H 95 H Respiratory 17 12 18 Rate Blood Pressure 188/102 212/115 187/98 O2 Sat by Pulse 99 97 98 Oximetry 09/12/21 09/12/21 09/12/21 09:15 09:30 10:25 Temperature Pulse Rate 93 H 90 Respiratory 19 18 Rate Blood Pressure 187/98 188/102 182/102 O2 Sat by Pulse 98 98 100 Oximetry 09/12/21 09/12/21 09/12/21 10:31 11:01 11:31 Temperature Pulse Rate 91 H 90 84 Respiratory 14 20 20 Rate Blood Pressure 195/102 182/102 174/103 O2 Sat by Pulse 98 100 99 Oximetry - Reevaluation(s) Reevaluation #1: 09/12/21 12:20 Urinalysis reviewed and appreciated. The patient denies urinary symptoms. Elevated CK will decrease on its own with rest, oral hydration. Patient also given intravenous fluids, in the form of banana bag. Hypertension is chronic. Given significant hypocalcemia, reluctance to administer calcium channel tesha, or diuretic. We will defer to inpatient team to further manage patient's elevated blood pressure, which is a chronic finding. ED Medical Decision Making - Lab Data Result diagrams: 09/12/21 09:01 09/12/21 08:39 Vital Signs 09/12/21 09/12/21 09/12/21 08:01 08:04 08:15 Temperature 97.9 F Pulse Rate 90 96 H 99 H Respiratory 20 14 14 Rate Blood Pressure 188/102 O2 Sat by Pulse 98 99 97 Oximetry 09/12/21 09/12/21 09/12/21 08:31 08:45 09:01 Temperature Pulse Rate 95 H 95 H Respiratory 17 12 18 Rate Blood Pressure 188/102 212/115 187/98 O2 Sat by Pulse 99 97 98 Oximetry 09/12/21 09/12/21 09/12/21 09:15 09:30 10:25 Temperature Pulse Rate 93 H 90 Respiratory 19 18 Rate Blood Pressure 187/98 188/102 182/102 O2 Sat by Pulse 98 98 100 Oximetry 10/24/21 10/24/21 10/24/21 10:31 11:01 11:31 Temperature Pulse Rate 91 H 90 84 Respiratory 14 20 20 Rate Blood Pressure 195/102 182/102 174/103 O2 Sat by Pulse 98 100 99 Oximetry Lab Results 09/12/21 09/12/21 09/12/21 Range/Units 08:29 08:39 08:39 WBC (4.5-11.0) K/mm3 RBC (3.65-5.03) M/mm3 Hgb (10.1-14.3) gm/dl Hct (30.3-42.9) % MCV (79-97) fl MCH (28-32) pg MCHC (30-34) % RDW (13.2-15.2) % Plt Count (140-440) K/mm3 Lymph % (Auto) (13.4-35.0) % Giles % (Auto) (0.0-7.3) % Eos % (Auto) (0.0-4.3) % Baso % (Auto) (0.0-1.8) % Lymph # (Auto) (1.2-5.4) K/mm3 Giles # (Auto) (0.0-0.8) K/mm3 Eos # (Auto) (0.0-0.4) K/mm3 Baso # (Auto) (0.0-0.1) K/mm3 Seg Neutrophils % (40.0-70.0) % Seg Neutrophils # (1.8-7.7) K/mm3 PT 15.0 H (12.2-14.9) Sec. INR 1.06 (0.87-1.13) Sodium 138 (137-145) mmol/L Potassium 3.9 (3.6-5.0) mmol/L Chloride 101.2 (98-107) mmol/L Carbon Dioxide 20 L (22-30) mmol/L Anion Gap 21 mmol/L BUN 7 (7-17) mg/dL Creatinine 0.9 (0.6-1.2) mg/dL Estimated GFR > 60 ml/min BUN/Creatinine Ratio 8 % Glucose 106 H (65-100) mg/dL Calcium 5.9 L* (8.4-10.2) mg/dL Magnesium (1.7-2.3) mg/dL Total Bilirubin 0.70 (0.1-1.2) mg/dL Direct Bilirubin 0.2 (0-0.2) mg/dL Indirect Bilirubin 0.5 mg/dL AST 52 H (5-40) units/L ALT 29 (7-56) units/L Alkaline Phosphatase 109 (35-129) units/L Total Creatine Kinase (30-135) units/L Troponin T (0.00-0.029) ng/mL Total Protein 8.2 (6.3-8.2) g/dL Albumin 4.0 (3.9-5) g/dL Albumin/Globulin Ratio 1.0 % Lipase 24 (13-60) units/L Urine Color Yellow (Yellow) Urine Turbidity Slightly-cloudy (Clear) Urine pH 5.0 (5.0-7.0) Ur Specific Lackey 1.016 (1.003-1.030) Urine Protein 30 mg/dl (Negative) mg/dL Urine Glucose (UA) Neg (Negative) mg/dL Urine Ketones Neg (Negative) mg/dL Urine Blood Lg (Negative) Urine Nitrite Neg (Negative) Urine Bilirubin Neg (Negative) Urine Urobilinogen < 2.0 (<2.0) mg/dL Ur Leukocyte Esterase Neg (Negative) Urine WBC (Auto) 37.0 H (0.0-6.0) /HPF Urine RBC (Auto) 41.0 (0.0-6.0) /HPF U Epithel Cells (Auto) 7.0 (0-13.0) /HPF Urine Bacteria (Auto) 1+ (Negative) /HPF Urine Mucus Few /HPF Salicylates (2.8-20.0) mg/dL Acetaminophen (10.0-30.0) ug/mL Plasma/Serum Alcohol (0-0.07) % 09/12/21 09/12/21 09/12/21 Range/Units 08:39 09:01 Unknown WBC 11.2 H (4.5-11.0) K/mm3 RBC 3.94 (3.65-5.03) M/mm3 Hgb 12.6 (10.1-14.3) gm/dl Hct 38.2 (30.3-42.9) % MCV 97 (79-97) fl MCH 32 (28-32) pg MCHC 33 (30-34) % RDW 14.6 (13.2-15.2) % Plt Count 254 (140-440) K/mm3 Lymph % (Auto) 11.0 L (13.4-35.0) % Giles % (Auto) 5.5 (0.0-7.3) % Eos % (Auto) 0.4 (0.0-4.3) % Baso % (Auto) 0.4 (0.0-1.8) % Lymph # (Auto) 1.2 (1.2-5.4) K/mm3 Giles # (Auto) 0.6 (0.0-0.8) K/mm3 Eos # (Auto) 0.0 (0.0-0.4) K/mm3 Baso # (Auto) 0.0 (0.0-0.1) K/mm3 Seg Neutrophils % 82.7 H (40.0-70.0) % Seg Neutrophils # 9.2 H (1.8-7.7) K/mm3 PT (12.2-14.9) Sec. INR (0.87-1.13) Sodium (137-145) mmol/L Potassium (3.6-5.0) mmol/L Chloride (98-107) mmol/L Carbon Dioxide (22-30) mmol/L Anion Gap mmol/L BUN (7-17) mg/dL Creatinine (0.6-1.2) mg/dL Estimated GFR ml/min BUN/Creatinine Ratio % Glucose (65-100) mg/dL Calcium (8.4-10.2) mg/dL Magnesium 1.40 L (1.7-2.3) mg/dL Total Bilirubin (0.1-1.2) mg/dL Direct Bilirubin (0-0.2) mg/dL Indirect Bilirubin mg/dL AST (5-40) units/L ALT (7-56) units/L Alkaline Phosphatase (35-129) units/L Total Creatine Kinase 650 H (30-135) units/L Troponin T (0.00-0.029) ng/mL Total Protein (6.3-8.2) g/dL Albumin (3.9-5) g/dL Albumin/Globulin Ratio % Lipase (13-60) units/L Urine Color (Yellow) Urine Turbidity (Clear) Urine pH (5.0-7.0) Ur Specific Lackey (1.003-1.030) Urine Protein (Negative) mg/dL Urine Glucose (UA) (Negative) mg/dL Urine Ketones (Negative) mg/dL Urine Blood (Negative) Urine Nitrite (Negative) Urine Bilirubin (Negative) Urine Urobilinogen (<2.0) mg/dL Ur Leukocyte Esterase (Negative) Urine WBC (Auto) (0.0-6.0) /HPF Urine RBC (Auto) (0.0-6.0) /HPF U Epithel Cells (Auto) (0-13.0) /HPF Urine Bacteria (Auto) (Negative) /HPF Urine Mucus /HPF Salicylates (2.8-20.0) mg/dL Acetaminophen (10.0-30.0) ug/mL Plasma/Serum Alcohol < 0.01 (0-0.07) % 09/12/21 09/12/21 09/12/21 Range/Units Unknown Unknown Unknown WBC (4.5-11.0) K/mm3 RBC (3.65-5.03) M/mm3 Hgb (10.1-14.3) gm/dl Hct (30.3-42.9) % MCV (79-97) fl MCH (28-32) pg MCHC (30-34) % RDW (13.2-15.2) % Plt Count (140-440) K/mm3 Lymph % (Auto) (13.4-35.0) % Giles % (Auto) (0.0-7.3) % Eos % (Auto) (0.0-4.3) % Baso % (Auto) (0.0-1.8) % Lymph # (Auto) (1.2-5.4) K/mm3 Giles # (Auto) (0.0-0.8) K/mm3 Eos # (Auto) (0.0-0.4) K/mm3 Baso # (Auto) (0.0-0.1) K/mm3 Seg Neutrophils % (40.0-70.0) % Seg Neutrophils # (1.8-7.7) K/mm3 PT (12.2-14.9) Sec. INR (0.87-1.13) Sodium (137-145) mmol/L Potassium (3.6-5.0) mmol/L Chloride (98-107) mmol/L Carbon Dioxide (22-30) mmol/L Anion Gap mmol/L BUN (7-17) mg/dL Creatinine (0.6-1.2) mg/dL Estimated GFR ml/min BUN/Creatinine Ratio % Glucose (65-100) mg/dL Calcium (8.4-10.2) mg/dL Magnesium (1.7-2.3) mg/dL Total Bilirubin (0.1-1.2) mg/dL Direct Bilirubin (0-0.2) mg/dL Indirect Bilirubin mg/dL AST (5-40) units/L ALT (7-56) units/L Alkaline Phosphatase (35-129) units/L Total Creatine Kinase (30-135) units/L Troponin T < 0.010 (0.00-0.029) ng/mL Total Protein (6.3-8.2) g/dL Albumin (3.9-5) g/dL Albumin/Globulin Ratio % Lipase (13-60) units/L Urine Color (Yellow) Urine Turbidity (Clear) Urine pH (5.0-7.0) Ur Specific Lackey (1.003-1.030) Urine Protein (Negative) mg/dL Urine Glucose (UA) (Negative) mg/dL Urine Ketones (Negative) mg/dL Urine Blood (Negative) Urine Nitrite (Negative) Urine Bilirubin (Negative) Urine Urobilinogen (<2.0) mg/dL Ur Leukocyte Esterase (Negative) Urine WBC (Auto) (0.0-6.0) /HPF Urine RBC (Auto) (0.0-6.0) /HPF U Epithel Cells (Auto) (0-13.0) /HPF Urine Bacteria (Auto) (Negative) /HPF Urine Mucus /HPF Salicylates < 0.3 L (2.8-20.0) mg/dL Acetaminophen < 5.0 L (10.0-30.0) ug/mL Plasma/Serum Alcohol (0-0.07) % - EKG Data -: EKG Interpreted by Md EKG shows normal: sinus rhythm Rate: normal - EKG Data 09/12/21 12:11 EKG interpreted at 08: 33 Sinus rhythm, rate 98 bpm. Left axis deviation, borderline left anterior fascicular block, normal P wave axis. Poor R wave progression. QTC is pr olonged. Abnormal EKG. Not a STEMI. - Radiology Data Radiology results: pending, report reviewed, image reviewed CT ABDOMEN AND PELVIS WITH CONTRAST INDICATION: Abdominal pain, diarrhea CONTRAST: 100 cc Omnipaque 300 IV COMPARISON: 07/06/2015, images and report currently unavailable; CTA chest 09/16/2019, partial images unavailable All CT scans at this location are performed using CT dose reduction for ALARA by means of automated exposure control. NOTE: Resolution is decreased and artifact is introduced by the patient's size. FINDINGS: Lung bases are clear of significant infiltrates. No pneumoperitoneum is seen. Liver shows moderate fatty infi ltration and is enlarged. Hepatic length measures 21.6 cm. No focal lesions are seen. Spleen is not enlarged. I see no abnormalities of the pancreas, gallbladder, or bile ducts. Right adrenal appears within normal limits but the left adrenal shows a posterior 2.2 cm mass with internal density measuring 26 Hounsfield units and with a small amount of calcification, not significantly changed from 2019. Small right renal cyst is seen with tiny probable right renal cyst. No left renal abnormalities are noted. No urinary obstructive changes are seen. No lymphadenopathy is noted. Multiple loops of small bowel in the lower abdomen and pelvis are not dilated but show moderate wall thickening. No def inite colonic abnormalities are seen though the right colon is poorly distended for evaluation and mild edema is not excluded. The wall thickening of the distal small bowel includes the terminal ilium. There may be slight wall enhancement. No evidence of perforation or abscess is seen. Small amounts of free fluid are noted, mostly in the pelvis. Appendix shows no definite abnormality. IMPRESSION: Mid to distal small bowel wall thickening consistent with enteritis. No obvious complication is seen. No obstructive changes are noted. Possible mild wall edema is seen in the right colon. Signer Name: Mendel Boogie MD Signed: 09/12/2021 10:00 AM - Medical Decision Making Differential diagnosis, including but not limited to: Alcohol dependence, colitis, diverticulitis, enteritis, pancreatitis, electrolyte derangement alcohol withdrawal, physical deconditioning Assessment and plan: 55-year-old female, who is afebrile, with reassuring vital signs with exception of chronic hypertension, who presents to the ER today with complaint of abdominal pain, diarrhea, body aches, malaise, fatigue, (denies loss of taste and smell, denies fever, denies exposure to Covid contacts) also complaining of alcohol withdrawal, and request for alcohol detox. Patient is found to be markedly hypocalcemic, ionized calcium pending, and also hypomagnesemic. CT scan abdomen pelvis suggests enteritis without acute surgical pathology. Patient placed on alcohol withdrawal protocol. We will replete her calcium, as well as magnesium. Banana bag ordered. Blood pressure improving. Have recommended admission to the medical service for supportive care, and correction of hypocalcemia, and hypomagnesemia. EKG markedly abnormal, with a prolonged QTC at 519 ms. The QRS is 82 ms, and the QT is 406 ms. I discussed this plan of care with the patient. She is agreeable to admission and hospitalization. Patient admitted to the medical service under the care of Dr. Avalos. From an alcohol withdrawal standpoint, patient does not require high-dose benzodiazepines and does not require triggers to the ICU. She also does not meet criteria for 1013 hold or involuntary hold. Critical care attestation.: If time is entered above; I have spent that time in minutes in the direct care of this critically ill patient, excluding procedure time. ED Disposition Clinical Impression: Hypocalcemia, Alcoholism, Hypomagnesemia, Acute abdominal pain, History of diarrhea, General weakness, Prolonged Q-T interval on ECG, Elevated CK Disposition: ADMITTED INPATIENT Is pt being admited?: Yes Does the pt Need Aspirin: No Condition: Good Instructions: Abdominal Pain (ED) Referrals: PRIMARY CARE, [Primary Care Provider] - 3-5 Days
[2021-09-12 08:54] LABS: Bacteria,Urine 1+ /HPF (Negative); Bilirubin,Urine NEG (Negative); Blood,Urine LG (Negative); Color,Urine Yellow (Yellow); Mucus,Urine FEW /HPF; Urobilinogen,Urine < 2.0 mg/dL (<2.0)
[2021-09-12 09:15] LABS: INR 1.06 (0.87-1.13)
[2021-09-12 09:23] LABS: Alanine Aminotransferase 29 units/L (7-56); BUN/Creatinine Ratio 8; Bilirubin,Direct 0.2 mg/dL (0-0.2); Blood Urea Nitrogen 7 mg/dL (7-17); Hemolysis Index 5
[2021-09-12] MEDS ORDERED: chlordiazePOXIDE 25 MG CAP PO PRN (09:31)
[2021-09-12] MEDS ORDERED: LORazepam 2 MG/ML VIAL IV PRN ×2 (09:31)
[2021-09-12] MEDS ORDERED: PANTOPRAZOLE 40 MG INJ IV ONE (09:32)
[2021-09-12] MEDS ORDERED: CALCIUM GLUCONATE 1,000 MG in SODIUM CHLORIDE 0.9% 100 ML IV NR (09:32)
[2021-09-12 09:33] LABS: Calcium 5.9 mg/dL (8.4-10.2)
[2021-09-12 09:34] LABS: Basophils % (Auto) 0.4 % (0.0-1.8); Eosinophils % (Auto) 0.4 % (0.0-4.3); Hematocrit 38.2 % (30.3-42.9); Hemoglobin 12.6 gm/dl (10.1-14.3); Lymphocytes # (Auto) 1.2 K/mm3 (1.2-5.4); Mean Corpuscular HGB Conc 33 % (30-34); Mean Corpuscular Volume 97 fl (79-97); Monocytes # (Auto) 0.6 K/mm3 (0.0-0.8); Monocytes % (Auto) 5.5 % (0.0-7.3); Platelet Count 254 K/mm3 (140-440); Red Blood Count 3.94 M/mm3 (3.65-5.03); Red Cell Distribution Width 14.6 % (13.2-15.2)
[2021-09-12] MEDS ORDERED: MAGNESIUM OXIDE 400 MG TAB PO STA (09:55)
[2021-09-12] MEDS ORDERED: MAGNESIUM SULFATE 2 GM/50 ML BAG IV ONE (09:55)
[2021-09-12] MEDS ORDERED: THIAMINE 100 MG, FOLIC ACID 1 MG, MULTIPLE VITAMIN INJ, ADULT 10 ML in SODIUM CHLORIDE ... IV NR (10:30)
--- NOTE | 2021-09-12 11:05 | Cat Scan Report ---
CT ABDOMEN AND PELVIS WITH CONTRAST INDICATION: Abdominal pain, diarrhea CONTRAST: 100 cc Omnipaque 300 IV COMPARISON: 07/06/2015, images and report currently unavailable; CTA chest 09/16/2019, partial images unavailable All CT scans at this location are performed using CT dose reduction for ALARA by means of automated e xposure control. NOTE: Resolution is decreased and artifact is introduced by the patient's size. FINDINGS: Lung bases are clear of significant infiltrates. No pneumoperitoneum is seen. Liver shows m oderate fatty infiltration and is enlarged. Hepatic length measures 21.6 cm. No focal lesions are see n. Spleen is not enlarged. I see no abnormalities of the pancreas, gallbladder, or bile ducts. Right adrenal appears within normal limits but the left adrenal shows a posterior 2.2 cm mass with internal density measuring 26 Hounsfield units and with a small amount of calcification, not significantly ch anged from 2019. Small right renal cyst is seen with tiny probable right renal cyst. No left renal ab normalities are noted. No urinary obstructive changes are seen. No lymphadenopathy is noted. Multiple loops of small bowel in the lower abdomen and pelvis are not dilated but show moderate wall thickening. No definite colonic abnormalities are seen though the right colon is poorly distended for evaluation and mild edema is not excluded. The wall thickening of the distal small bowel includes th e terminal ilium. There may be slight wall enhancement. No evidence of perforation or abscess is seen . Small amounts of free fluid are noted, mostly in the pelvis. Appendix shows no definite abnormality . IMPRESSION: Mid to distal small bowel wall thickening consistent with enteritis. No obvious complicat ion is seen. No obstructive changes are noted. Possible mild wall edema is seen in the right colon. Signer Name: Mendel Boogie MD Signed: 09/12/2021 11:00 AM Workstation Name: [id number]
[2021-09-12] MEDS ORDERED: CALCIUM CARBONATE 500 MG TAB CHEW PO ONE (12:10)
[2021-09-12] MEDS ORDERED: hydrALAZINE 20 MG/1 ML INJ IV NR (12:41)
--- NOTE | 2021-09-12 13:19 | Event Note ---
Date: 09/12/21 55-year-old female with alcohol dependence, hypertension, medication noncompliance who was lost outpatient medical follow-up presents to ED for sumanth luation. Patient reports "I need detox". Patient states that she has been on alcohol drinking binge and wants detoxification. Patient seen and evaluated in the emergency department. All lab and imaging studies reviewed. Patient found to have no significant physical exam findings. Patient is obese however malnourished. Patient counseled regarding abstinence from alcohol, medication compliance and outpatient follow-up. Patient medically optimized and back to usual state of health. Patient discharged home and instructed to attend Alcoholics Anonymous meeting at discharge. Patient also advised to seek outpatient GI follow-up for screening endoscopy and to follow-up with primary care physician for all age-appropriate screening test. 35 minutes dedicated to patient discharge and coordination of care. - General Limitations: No Limitations General appearance: alert, resting comfortably, NAD - Head Head exam: Present: atraumatic, normocephalic - Eye Eye exam: Present: normal appearance, EOMI. Absent: nystagmus - ENT ENT exam: Present: normal exam, normal orophraynx, mucous membranes moist, normal external ear exam, other (Mild tongue fasciculations noted) - Neck Neck exam: Present: normal inspection, full ROM. Absent: tenderness, meningismus - Respiratory Respiratory exam: Present: normal lung sounds bilaterally. Absent: respiratory distress, wheezes, rales, rhonchi, stridor, decreased breath sounds - Cardiovascular Cardiovascular Exam: Present: regular rate, normal rhythm, normal heart sounds. Absent: bradycardia, tachycardia, irregular rhythm, systolic murmur, diastolic murmur, rubs, gallop - GI/Abdominal GI/Abdominal exam: Present: soft. Absent: distended, tenderness, guarding, rebound, rigid, pulsatile mass - Extremities Exam Extremities exam: Present: normal inspection (Chronic stasis changes noted in the right lower extremity), full ROM, pedal edema (2+ edema in the bilateral lower extremities), other (2+ pulses noted in the bilateral upper and lower extremities. There is no palpable cord. negative Homans sign. Muscular compartments are soft. The pelvis is stable.). Absent: calf tenderness - Back Exam Back exam: Present: normal inspection, full ROM. Absent: tenderness, CVA tenderness (R), CVA tenderness (L), paraspinal tenderness, vertebral tenderness - Neurological Exam Neurological exam: Present: alert, oriented X3, normal gait, other (No facial droop. Tongue midline. Extraocular movements intact bilaterally. Facial sensation intact to light touch in V1, V2, V3 distribution bilaterally. 5 and a 5 strength in 4 extremities. Sensation intact to light touch in 4 extremities.). Absent: motor sensory deficit - Psychiatric Psychiatric exam: Present: anxious. Absent: homicidal ideation, suicidal ideation - Skin Skin exam: Present: warm, dry, intact, normal color. Absent: rash
[2021-09-12 15:15] VITALS: BP 180/91
--- NOTE | 2021-09-13 09:47 | Electrocardiograph Report ---
[facility] Test Date: 2021-09-12 Test Time: 08:33:14 Pat Name: ROSEANN WONG Department: Room: Gender: F [employer]ing [employer]: TV : 1965 Requested By: GADIEL MARROQUIN Order Number: [id number] Reading MD: Kishan Parker Measurements Intervals [place] Rate: 98 P: 53 [place]: 192 QRS: -25 QRSD: 82 T: -4 QT: 406 QTc: 519 Interpretive Statements Sinus rhythm Low voltage, precordial leads Probable anteroseptal infarct, old Prolonged QT interval Compared to ECG 04/03/2021 17:36:50 Low QRS voltage now present Myocardial infarct finding now present Prolonged QT interval now present Poor R-wave progression no longer present Electronically Signed On 09-13-2021 9:47:01 EDT by Kishan Parker
== END 2021-09-12 16:43 | disposition home or self-care (01) ==
LOC: ED 07:57
DX: E83.51 Hypocalcemia (principal); E83.42 Hypomagnesemia; R19.7 Diarrhea, unspecified; R10.84 Generalized abdominal pain; I45.81 Long QT syndrome; R74.8 Abnormal levels of other serum enzymes; E11.9 Type 2 diabetes mellitus without complications; I10 Essential (primary) hypertension; E03.9 Hypothyroidism, unspecified; Z79.899 Other long term (current) drug therapy; Z88.8 Allergy status to other drugs, medicaments and biological substances
CPT/HCPCS: 36415; 74177; 80048; 80076; 81001; 82330; 82550; 83690; 83735; 84484; 85025; 85610; 87086; 93005; 96365; 96368; 96375; 99284; C9113; J0610; J2060; J3411; J3475; J7030; Q9967; 80320; G0480

== ENCOUNTER 2022-02-25 00:46 | Emergency (ER) | payer SELFPAY ==
[2022-02-25] MEDS ORDERED: ACETAMINOPHEN 500 MG TAB PO ONE (03:30)
--- NOTE | 2022-02-25 04:23 | XRay Report ---
RIGHT FOOT 2 VIEWS INDICATION / CLINICAL INFORMATION: foot pain. COMPARISON: None available. FINDINGS: BONES / JOINT(S): No acute fracture or subluxation. 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 SOFT TISSUES: No significant abnormality. ADDITIONAL FINDINGS: None. IMPRESSION: 1. No acute findings. Signer Name: Torsten Heath MD Signed: 02/25/2022 4:19 AM Workstation Name: [id number]
--- NOTE | 2022-02-25 04:23 | XRay Report ---
RIGHT TIB-FIB 2 VIEWS INDICATION / CLINICAL INFORMATION: RLE pain swelling. COMPARISON: None available. FINDINGS: BONES / JOINT(S): No acute fracture or subluxation. Mild osteoarthritis in the right knee. SOFT TISSUES: No significant abnormality. ADDITIONAL FINDINGS: None. IMPRESSION: 1. No acute findings. Signer Name: Torsten Heath MD Signed: 02/25/2022 4:18 AM Workstation Name: [id number]
--- NOTE | 2022-02-25 04:33 | Emergency Department Report ---
ED Lower Extremity HPI - General Chief Complaint: Extremity Problem,Nontraumatic Stated Complaint: LEGS HURT Time Seen by Provider: 02/25/22 03:31 Source: patient Mode of arrival: Ambulatory Limitations: No Limitations - History of Present Illness Initial Comments: Patient 56-year-old -Togol[place] female who with a history of hypertension and diabetes who presents for right lower extremity pain and swelling x1 week. This is an acute on chronic exacerbation for this patient. Patient denies fall injury or trauma. Patient does state history of hallux valgus bilateral pain is described as aching tingling burning radiating to plantar right foot. Symptoms are exacerbated by prolonged standing and palpation. Symptoms are relieved by nothing tried. MD Complaint: leg injury, foot injury - Related Data Previous Rx's Medication Instructions Recorded Last Taken Type Multivitamins-Mineral [Theragran-M] 1 each PO DAILY 30 Days tablet 01/08/14 1 Day Ago Rx ~11/08/15 Calcium Carbonate/Vitamin D3 1 tab PO QDAY #30 tablet 12/18/15 Unknown Rx [Calcium 600-Vit D3 800 Tablet] Gabapentin 600 mg PO Q8HR #90 capsule 08/17/18 Unknown Rx Calcium Carbonate [Calcium] 500 mg PO TID #90 tablet 04/01/19 Unknown Rx Ferrous Gluconate [Fergon 325 MG 324 mg PO QDAY #30 tablet 08/20/19 Unknown Rx tab] Furosemide [Lasix TAB] 20 mg PO QDAY #30 tablet 08/20/19 Unknown Rx Gabapentin 300 mg PO Q8HR #90 capsule 08/20/19 Unknown Rx Sulfamethoxazole/Trimethoprim 1 each PO BID #14 tablet 08/20/19 Unknown Rx [Bactrim DS TAB] Ciprofloxacin HCl [Ciprofloxacin 500 mg PO Q12HR #14 tab 09/16/19 Unknown Rx TAB] HYDROcodone/APAP 5-325 [[place] 1 each PO Q6HR PRN #14 tablet 09/16/19 Unknown Rx 5/325] Magnesium Oxide 400 mg PO QDAY #30 tablet 04/04/21 Unknown Rx Ibuprofen [Motrin 600 MG tab] 600 mg PO Q8H PRN #20 tablet 08/10/21 Unknown Rx Calc Carb/Vit D 500 mg-200 Uni 2 each PO BID #60 tablet 09/12/21 Unknown Rx [Oysco D 500 mg-200 Unit] Folic Acid [Folvite] 1 mg PO DAILY #30 tablet 09/12/21 Unknown Rx Levothyroxine [Synthroid] 75 mcg PO QAM #30 tablet 09/12/21 Unknown Rx Metoprolol [Lopressor TAB] 25 mg PO BID #60 tablet 09/12/21 Unknown Rx Pantoprazole [Protonix] 40 mg PO BID #60 tablet 09/12/21 Unknown Rx Thiamine [Vitamin B-1] 100 mg PO QDAY #30 tablet 09/12/21 Unknown Rx amLODIPine 10 mg PO DAILY #30 tab 09/12/21 Unknown Rx hydroCHLOROthiazide [HCTZ] 25 mg PO QDAY #30 capsule 09/12/21 Unknown Rx Acetaminophen/Codeine [Tylenol 1 tab PO Q6H PRN #12 tab 02/25/22 Unknown Rx /Codeine # 3 tab] Allergies Allergy/AdvReac Type Severity Reaction Status Date / Time lisinopril Allergy Angioedema Verified 09/12/21 08:05 ED Review of Systems ROS: Stated complaint: LEGS HURT Other details as noted in HPI Constitutional: denies: chills, fever Eyes: denies: eye pain, eye discharge, vision change ENT: denies: ear pain, throat pain Respiratory: denies: cough, shortness of breath, wheezing Cardiovascular: denies: chest pain, palpitations Endocrine: no symptoms reported Gastrointestinal: denies: abdominal pain, nausea, diarrhea Genitourinary: denies: urgency, dysuria, discharge Musculoskeletal: arthralgia, other (Hammertoe). denies: back pain, joint swelling Skin: denies: rash, lesions Neurological: denies: headache, weakness, paresthesias, vertigo Psychiatric: denies: anxiety, depression Hematological/Lymphatic: denies: easy bleeding, easy bruising ED Past Medical Hx - Past Medical History Hx Hypertension: Yes Hx Congestive Heart Failure: No Hx Diabetes: Yes (States "prediabetic" not on medication) Hx Sickle Cell Disease: No Hx Seizures: No Hx Kidney Stones: Yes Hx Asthma: No Hx COPD: No Hx HIV: No Additional medical history: anemia. low calcium. Hypothyroidism. ALCOHOLIC - Surgical History Additional Surgical History: thyroid and parathyroid removed - Social History Smoking Status: Never Smoker - Medications Home Medications: Home Medications Medication Instructions Recorded Confirmed Last Taken Type Multivitamins-Mineral [Theragran-M] 1 each PO DAILY 30 Days tablet 01/08/14 03/30/19 1 Day Ago Rx ~11/08/15 Calcium Carbonate/Vitamin D3 1 tab PO QDAY #30 tablet 12/18/15 03/30/19 Unknown Rx [Calcium 600-Vit D3 800 Tablet] Gabapentin 600 mg PO Q8HR #90 capsule 08/17/18 03/30/19 Unknown Rx Calcium Carbonate [Calcium] 500 mg PO TID #90 tablet 04/01/19 Unknown Rx Ferrous Gluconate [Fergon 325 MG 324 mg PO QDAY #30 tablet 08/20/19 Unknown Rx tab] Furosemide [Lasix TAB] 20 mg PO QDAY #30 tablet 08/20/19 Unknown Rx Gabapentin 300 mg PO Q8HR #90 capsule 08/20/19 Unknown Rx Sulfamethoxazole/Trimethoprim 1 each PO BID #14 tablet 08/20/19 Unknown Rx [Bactrim DS TAB] Ciprofloxacin HCl [Ciprofloxacin 500 mg PO Q12HR #14 tab 09/16/19 Unknown Rx TAB] HYDROcodone/APAP 5-325 [[place] 1 each PO Q6HR PRN #14 tablet 09/16/19 Unknown Rx 5/325] Magnesium Oxide 400 mg PO QDAY #30 tablet 04/04/21 Unknown Rx Ibuprofen [Motrin 600 MG tab] 600 mg PO Q8H PRN #20 tablet 08/10/21 Unknown Rx Calc Carb/Vit D 500 mg-200 Uni 2 each PO BID #60 tablet 09/12/21 Unknown Rx [Oysco D 500 mg-200 Unit] Folic Acid [Folvite] 1 mg PO DAILY #30 tablet 09/12/21 Unknown Rx Levothyroxine [Synthroid] 75 mcg PO QAM #30 tablet 09/12/21 Unknown Rx Metoprolol [Lopressor TAB] 25 mg PO BID #60 tablet 09/12/21 Unknown Rx Pantoprazole [Protonix] 40 mg PO BID #60 tablet 09/12/21 Unknown Rx Thiamine [Vitamin B-1] 100 mg PO QDAY #30 tablet 09/12/21 Unknown Rx amLODIPine 10 mg PO DAILY #30 tab 09/12/21 Unknown Rx hydroCHLOROthiazide [HCTZ] 25 mg PO QDAY #30 capsule 09/12/21 Unknown Rx Acetaminophen/Codeine [Tylenol 1 tab PO Q6H PRN #12 tab 02/25/22 Unknown Rx /Codeine # 3 tab] ED Physical Exam - General Limitations: No Limitations General appearance: alert, in no apparent distress - Head Head exam: Present: atraumatic, normocephalic, normal inspection - Eye Eye exam: Present: normal appearance, EOMI Pupils: Present: normal accommodation - ENT ENT exam: Present: mucous membranes moist - Neck Neck exam: Present: normal inspection, full ROM. Absent: tenderness, meningismus, lymphadenopathy - Respiratory Respiratory exam: Present: normal lung sounds bilaterally. Absent: respiratory distress, wheezes, stridor, chest wall tenderness - Cardiovascular Cardiovascular Exam: Present: regular rate, normal rhythm, normal heart sounds - GI/Abdominal GI/Abdominal exam: Present: soft, normal bowel sounds. Absent: distended, tenderness - Rectal Rectal exam: Present: deferred - Extremities Exam Extremities exam: Present: normal inspection, full ROM, tenderness (Right plantar foot generalized right lower extremity pain), normal capillary refill, joint swelling (Right ankle). Absent: pedal edema, calf tenderness - Expanded Lower Extremity Exam Right Lower Leg exam: Present: full ROM, tenderness, swelling (Generalized). Absent: abrasion, laceration, ecchymosis, deformity, crepidus, dislocation, erythema, palpable cord, Cassie's sign Ankle exam: Present: full ROM, swelling. Absent: tenderness, laceration Foot/Toe exam: Present: full ROM, tenderness, swelling. Absent: abrasion, laceration, ecchymosis, deformity, crepidus, dislocation, erythema, amputation, puncture wound, foreign body, calcaneal tenderness, tenderness at base of 5th metatarsal, nail avulsion, subungual hematoma Neuro vascular tendon exam: Present: pallor. Absent: pulse deficit, motor deficit, sensory deficit, tendon deficit, foot drop Gait: Positive: observed and limited by pain - Back Exam Back exam: Present: normal inspection, full ROM. Absent: tenderness, CVA tenderness (R), CVA tenderness (L) - Neurological Exam Neurological exam: Present: alert, oriented X3, CN II-XII intact, motor sensory deficit. Absent: reflexes normal - Expanded Neurological Exam Expanded Patient oriented to: Present: person, place, time Speech: Present: fluid speech Motor strength exam: RUE: 5, LUE: 5, RLE: 5, LLE: 5 DTR: ankle (R): 1+, ankle (L): 1+ Best Eye Response (Otis): (4) open spontaneously Best Motor Response (Otis): (6) obeys commands Best Verbal Response (Facundo): (5) oriented Facundo Total: 15 - Psychiatric Psychiatric exam: Present: normal affect, normal mood - Skin Skin exam: Present: warm, dry, intact, normal color. Absent: rash ED Course Vital Signs 02/25/22 00:58 Temperature 97.4 F L Pulse Rate 85 Respiratory 18 Rate Blood Pressure 188/163 O2 Sat by Pulse 100 Oximetry ED Lower Extremity MDM - Radiology Data Radiology results: report reviewed, image reviewed RIGHT FOOT 2 VIEWS INDICATION / CLINICAL INFORMATION: foot pain. COMPARISON: None available. FINDINGS: BONES / JOINT(S): No acute fracture or subluxation. Moderate DJD in the first MTP joint with hallux valgus angulation. SOFT TISSUES: No significant abnormality. ADDITIONAL FINDINGS: None. IMPRESSION: 1. No acute findings. Signer Name: Torsten Heath MD Signed: 02/25/2022 4:19 AM Workstation Name: [id number] Transcribed By: FERN Dictated By: Torsten Heath MD Electronically Authenticated By: Torsten Heath MD Signed Date/Time: 02/25/22418 DD/ 8 TD/TT: RIGHT TIB-FIB 2 VIEWS INDICATION / CLINICAL INFORMATION: RLE pain swelling. COMPARISON: None available. FINDINGS: BONES / JOINT(S): No acute fracture or subluxation. Mild osteoarthritis in the right knee. SOFT TISSUES: No significant abnormality. ADDITIONAL FINDINGS: None. IMPRESSION: 1. No acute findings. Signer Name: Torsten Heath MD Signed: 02/25/2022 4:18 AM Workstation Name: [id number] Transcribed By: FERN Dictated By: Torsten Heath MD Electronically Authenticated By: Torsten Heath MD Signed Date/Time: 02/25/22417 DD/ 7 TD/TT: . DUPLEX DOPPLER LOWER EXTREMITY VEINS, RIGHT INDICATION / CLINICAL INFORMATION: RLE pain swelling. TECHNIQUE: Duplex doppler imaging was performed through the veins of the right lower extremity using venous compression and other maneuvers. COMPARISON: None available. FINDINGS: RIGHT COMMON FEMORAL VEIN: Negative. RIGHT FEMORAL VEIN: Negative. RIGHT POPLITEAL VEIN: Negative. RIGHT CALF VEINS: Negative. ADDITIONAL FINDINGS: None. IMPRESSION: 1. No sonographic evidence for DVT in the right lower extremity. Signer Name: Torsten Heath MD Signed: 02/25/2022 5:56 AM Workstation Name: [id number] Transcribed By: FERN Dictated By: Torsten Heath MD Electronically Authenticated By: Torsten Heath MD Signed Date/Time: 02/25/22555 DD/ 5 TD/TT: - Medical Decision Making If Plantar Puncture Wound, Discussed with Patient: Risk of Infection X-rays negative for acute fracture there is noted hallux valgus right foot. Ultrasound Doppler negative for DVT plan NSAIDs, patient advised to use shoe inserts as directed. Follow-up with podiatry. Return to emergency department should symptoms worsen. Patient verbalized agreement and understanding with discharge plan. Pain is improved at this time. Patient is amatory with minimal limp. Patient DC'd in stable condition at this time. Critical care attestation.: If time is entered above; I have spent that time in minutes in the direct care of this critically ill patient, excluding procedure time. ED Disposition Clinical Impression: Hallux valgus (acquired), right foot Lower extremity pain Qualifiers: Laterality: right Qualified Code(s): M79.604 - Pain in right leg Disposition: 01 HOME / SELF CARE / HOMELESS Is pt being admited?: No Does the pt Need Aspirin: No Condition: Stable Instructions: Bunion Surgery, Musculoskeletal Pain Additional Instructions: Take medications as prescribed, follow-up with podiatry in 2 to 3 days. Return to emergency department should symptoms worsen. Prescriptions: Acetaminophen/Codeine [Tylenol /Codeine # 3 tab] 1 tab PO Q6H PRN #12 tab PRN Reason: pain Referrals: CODY GAMBOA MD [Primary Care Provider] - 3-5 Days ANNA BUCHANAN DPM [Staff Physician] - 3-5 Days Forms: Work/School Release Form(ED) Time of Disposition: 06:24
--- NOTE | 2022-02-25 06:00 | Vascular Lab Report ---
. DUPLEX DOPPLER LOWER EXTREMITY VEINS, RIGHT INDICATION / CLINICAL INFORMATION: RLE pain swelling. TECHNIQUE: Duplex doppler imaging was performed through the veins of the right lower extremity using venous comp ression and other maneuvers. COMPARISON: None available. FINDINGS: RIGHT COMMON FEMORAL VEIN: Negative. RIGHT FEMORAL VEIN: Negative. RIGHT POPLITEAL VEIN: Negative. RIGHT CALF VEINS: Negative. ADDITIONAL FINDINGS: None. IMPRESSION: 1. No sonographic evidence for DVT in the right lower extremity. Signer Name: Torsten Heath MD Signed: 02/25/2022 5:56 AM Workstation Name: [id number]
[2022-02-25 06:37] VITALS: BP 146/69
== END 2022-02-25 06:37 | disposition home or self-care (01) ==
LOC: ED 00:46
DX: M20.11 Hallux valgus (acquired), right foot (principal); I10 Essential (primary) hypertension; E11.9 Type 2 diabetes mellitus without complications; Z98.890 Other specified postprocedural states; Z79.899 Other long term (current) drug therapy; Z88.8 Allergy status to other drugs, medicaments and biological substances
CPT/HCPCS: 99284

== ENCOUNTER 2022-03-01 18:03 | Emergency (ER) | payer SELFPAY ==
[2022-03-01 20:37] LABS: Hematocrit 25.5 % (30.3-42.9); Hemoglobin 7.9 gm/dl (10.1-14.3); Mean Corpuscular HGB Conc 31 % (30-34); Mean Corpuscular Volume 82 fl (79-97); Platelet Count 204 K/mm3 (140-440); Red Blood Count 3.13 M/mm3 (3.65-5.03)
[2022-03-01 20:58] LABS: Red Cell Distribution Width 21.3 % (13.2-15.2)
--- NOTE | 2022-03-01 20:58 | Emergency Department Report ---
ED General Adult HPI - General Chief complaint: Weakness Stated complaint: WEAKNESS Time Seen by Provider: 03/01/22 19:20 Source: EMS Mode of arrival: Stretcher Limitations: No Limitations - History of Present Illness Initial comments: Patient is a 56-year-old female who presents with weakness that has occurred today. Patient fell on her bottom and did not hit her head nor lose had any loss of consciousness. However she states that it is hard moving her arms and legs. She states that she also is a daily drinker and drinks a lot of alcohol. She is complaining of some pain in her feet. Severity scale (0 -10): 0 - Related Data Previous Rx's Medication Instructions Recorded Last Taken Type Multivitamins-Mineral [Theragran-M] 1 each PO DAILY 30 Days tablet 01/08/14 1 Day Ago Rx ~11/08/15 Calcium Carbonate/Vitamin D3 1 tab PO QDAY #30 tablet 12/18/15 Unknown Rx [Calcium 600-Vit D3 800 Tablet] Gabapentin 600 mg PO Q8HR #90 capsule 08/17/18 Unknown Rx Calcium Carbonate [Calcium] 500 mg PO TID #90 tablet 04/01/19 Unknown Rx Ferrous Gluconate [Fergon 325 MG 324 mg PO QDAY #30 tablet 08/20/19 Unknown Rx tab] Furosemide [Lasix TAB] 20 mg PO QDAY #30 tablet 08/20/19 Unknown Rx Gabapentin 300 mg PO Q8HR #90 capsule 08/20/19 Unknown Rx Sulfamethoxazole/Trimethoprim 1 each PO BID #14 tablet 08/20/19 Unknown Rx [Bactrim DS TAB] Ciprofloxacin HCl [Ciprofloxacin 500 mg PO Q12HR #14 tab 09/16/19 Unknown Rx TAB] HYDROcodone/APAP 5-325 [Natalia 1 each PO Q6HR PRN #14 tablet 09/16/19 Unknown Rx 5/325] Magnesium Oxide 400 mg PO QDAY #30 tablet 04/04/21 Unknown Rx Ibuprofen [Motrin 600 MG tab] 600 mg PO Q8H PRN #20 tablet 08/10/21 Unknown Rx Calc Carb/Vit D 500 mg-200 Uni 2 each PO BID #60 tablet 09/12/21 Unknown Rx [Oysco D 500 mg-200 Unit] Folic Acid [Folvite] 1 mg PO DAILY #30 tablet 09/12/21 Unknown Rx Levothyroxine [Synthroid] 75 mcg PO QAM #30 tablet 09/12/21 Unknown Rx Metoprolol [Lopressor TAB] 25 mg PO BID #60 tablet 09/12/21 Unknown Rx Pantoprazole [Protonix] 40 mg PO BID #60 tablet 09/12/21 Unknown Rx Thiamine [Vitamin B-1] 100 mg PO QDAY #30 tablet 09/12/21 Unknown Rx amLODIPine 10 mg PO DAILY #30 tab 09/12/21 Unknown Rx hydroCHLOROthiazide [HCTZ] 25 mg PO QDAY #30 capsule 09/12/21 Unknown Rx Acetaminophen/Codeine [Tylenol 1 tab PO Q6H PRN #12 tab 02/25/22 Unknown Rx /Codeine # 3 tab] Calcium Phosphate Trib/Vit D3 1 each PO DAILY #60 tab 03/01/22 Unknown Rx [Calcium + Vitamin D3 Gummies] Allergies Allergy/AdvReac Type Severity Reaction Status Date / Time lisinopril Allergy Angioedema Verified 09/12/21 08:05 ED Review of Systems ROS: Stated complaint: WEAKNESS Other details as noted in HPI Constitutional: denies: chills, fever Eyes: denies: eye pain, eye discharge, vision change ENT: denies: ear pain, throat pain Respiratory: denies: cough, shortness of breath, wheezing Cardiovascular: denies: chest pain, palpitations Endocrine: no symptoms reported Gastrointestinal: denies: abdominal pain, nausea, diarrhea Genitourinary: denies: urgency, dysuria, discharge Musculoskeletal: denies: back pain, joint swelling, arthralgia Skin: denies: rash, lesions Neurological: weakness. denies: headache, paresthesias Psychiatric: denies: anxiety, depression Hematological/Lymphatic: denies: easy bleeding, easy bruising ED Past Medical Hx - Past Medical History Hx Hypertension: Yes Hx Congestive Heart Failure: No Hx Diabetes: Yes (States "prediabetic" not on medication) Hx Sickle Cell Disease: No Hx Seizures: No Hx Kidney Stones: Yes Hx Asthma: No Hx COPD: No Hx HIV: No Additional medical history: anemia. low calcium. Hypothyroidism. ALCOHOLIC - Surgical History Additional Surgical History: thyroid and parathyroid removed - Social History Smoking Status: Never Smoker - Medications Home Medications: Home Medications Medication Instructions Recorded Confirmed Last Taken Type Multivitamins-Mineral [Theragran-M] 1 each PO DAILY 30 Days tablet 01/08/14 03/30/19 1 Day Ago Rx ~11/08/15 Calcium Carbonate/Vitamin D3 1 tab PO QDAY #30 tablet 12/18/15 03/30/19 Unknown Rx [Calcium 600-Vit D3 800 Tablet] Gabapentin 600 mg PO Q8HR #90 capsule 08/17/18 03/30/19 Unknown Rx Calcium Carbonate [Calcium] 500 mg PO TID #90 tablet 04/01/19 Unknown Rx Ferrous Gluconate [Fergon 325 MG 324 mg PO QDAY #30 tablet 08/20/19 Unknown Rx tab] Furosemide [Lasix TAB] 20 mg PO QDAY #30 tablet 08/20/19 Unknown Rx Gabapentin 300 mg PO Q8HR #90 capsule 08/20/19 Unknown Rx Sulfamethoxazole/Trimethoprim 1 each PO BID #14 tablet 08/20/19 Unknown Rx [Bactrim DS TAB] Ciprofloxacin HCl [Ciprofloxacin 500 mg PO Q12HR #14 tab 09/16/19 Unknown Rx TAB] HYDROcodone/APAP 5-325 [Natalia 1 each PO Q6HR PRN #14 tablet 09/16/19 Unknown Rx 5/325] Magnesium Oxide 400 mg PO QDAY #30 tablet 04/04/21 Unknown Rx Ibuprofen [Motrin 600 MG tab] 600 mg PO Q8H PRN #20 tablet 08/10/21 Unknown Rx Calc Carb/Vit D 500 mg-200 Uni 2 each PO BID #60 tablet 09/12/21 Unknown Rx [Oysco D 500 mg-200 Unit] Folic Acid [Folvite] 1 mg PO DAILY #30 tablet 09/12/21 Unknown Rx Levothyroxine [Synthroid] 75 mcg PO QAM #30 tablet 09/12/21 Unknown Rx Metoprolol [Lopressor TAB] 25 mg PO BID #60 tablet 09/12/21 Unknown Rx Pantoprazole [Protonix] 40 mg PO BID #60 tablet 09/12/21 Unknown Rx Thiamine [Vitamin B-1] 100 mg PO QDAY #30 tablet 09/12/21 Unknown Rx amLODIPine 10 mg PO DAILY #30 tab 09/12/21 Unknown Rx hydroCHLOROthiazide [HCTZ] 25 mg PO QDAY #30 capsule 09/12/21 Unknown Rx Acetaminophen/Codeine [Tylenol 1 tab PO Q6H PRN #12 tab 02/25/22 Unknown Rx /Codeine # 3 tab] Calcium Phosphate Trib/Vit D3 1 each PO DAILY #60 tab 03/01/22 Unknown Rx [Calcium + Vitamin D3 Gummies] ED Physical Exam - General Limitations: No Limitations General appearance: alert, in no apparent distress - Head Head exam: Present: atraumatic, normocephalic - Eye Eye exam: Present: normal appearance - ENT ENT exam: Present: mucous membranes moist - Neck Neck exam: Present: normal inspection - Respiratory Respiratory exam: Present: normal lung sounds bilaterally. Absent: respiratory distress - Cardiovascular Cardiovascular Exam: Present: regular rate, normal rhythm. Absent: systolic murmur, diastolic murmur, rubs, gallop - GI/Abdominal GI/Abdominal exam: Present: soft, normal bowel sounds - Extremities Exam Extremities exam: Present: normal inspection - Back Exam Back exam: Present: normal inspection - Neurological Exam Neurological exam: Present: alert, oriented X3 - Psychiatric Psychiatric exam: Present: normal affect, normal mood - Skin Skin exam: Present: warm, dry, intact, normal color. Absent: rash ED Course Vital Signs 03/01/22 03/01/22 03/01/22 18:13 19:42 19:43 Temperature 98.8 F Pulse Rate 98 H 88 Respiratory 15 Rate Blood Pressure 116/56 [Right] O2 Sat by Pulse 98 96 Oximetry 03/01/22 03/01/22 19:48 21:25 Temperature 99.1 F Pulse Rate 95 H 90 Respiratory 18 18 Rate Blood Pressure 113/60 117/49 [Right] O2 Sat by Pulse 98 96 Oximetry ED Medical Decision Making - Lab Data Result diagrams: 03/01/22 20:17 03/01/22 20:17 Lab Results 03/01/22 03/01/22 Range/Units 20:17 20:17 WBC 7.0 (4.5-11.0) K/mm3 RBC 3.13 L (3.65-5.03) M/mm3 Hgb 7.9 L (10.1-14.3) gm/dl Hct 25.5 L (30.3-42.9) % MCV 82 (79-97) fl MCH 25 L (28-32) pg MCHC 31 (30-34) % RDW 21.3 H (13.2-15.2) % Plt Count 204 (140-440) K/mm3 Sodium 140 (137-145) mmol/L Potassium 3.7 (3.6-5.0) mmol/L Chloride 103.3 (98-107) mmol/L Carbon Dioxide 19 L (22-30) mmol/L Anion Gap 21 mmol/L BUN 10 (7-17) mg/dL Creatinine 1.0 (0.6-1.2) mg/dL Estimated GFR > 60 ml/min BUN/Creatinine Ratio 10 % Glucose 95 (65-100) mg/dL Calcium 5.7 L* (8.4-10.2) mg/dL Total Bilirubin 0.30 (0.1-1.2) mg/dL AST 68 H (5-40) units/L ALT 26 (7-56) units/L Alkaline Phosphatase 106 (35-129) units/L Total Protein 7.7 (6.3-8.2) g/dL Albumin 3.5 L (3.9-5) g/dL Albumin/Globulin Ratio 0.8 % - EKG Data -: EKG Interpreted by Me - Medical Decision Making Chief medical diagnosis: Hypocalcemia Differential medical diagnosis: Electrolyte abnormality alcohol intoxication I will get CBC BMP IV fluids and ethanol level. Patient has a lower calcium level spoke with hospitalist patient does not require any admission fo r this patient can give IV calcium and can go home with calcium supplementation. Critical care attestation.: If time is entered above; I have spent that time in minutes in the direct care of this critically ill patient, excluding procedure time. ED Disposition Clinical Impression: Hypocalcemia, Weakness, Alcoholism Disposition: 01 HOME / SELF CARE / HOMELESS Is pt being admited?: No Does the pt Need Aspirin: No Condition: Stable Instructions: Alcohol Abuse and Dependence Information, Adult, Weakness, [id number] Prescriptions: Calcium Phosphate Trib/Vit D3 [Calcium + Vitamin D3 Gummies] 1 each PO DAILY #60 tab Referrals: PRIMARY CARE, [Primary Care Provider] - 3-5 Days
[2022-03-01 21:17] LABS: Alanine Aminotransferase 26 units/L (7-56); Albumin 3.5 g/dL (3.9-5); BUN/Creatinine Ratio 10; Blood Urea Nitrogen 10 mg/dL (7-17); Hemolysis Index 1
[2022-03-01 21:25] VITALS: BP 117/49
[2022-03-01 21:43] LABS: Calcium 5.7 mg/dL (8.4-10.2)
[2022-03-01] MEDS ORDERED: CALCIUM GLUCONATE 2,000 MG in SODIUM CHLORIDE 0.9% 100 ML IV ONE (22:02)
[2022-03-02 05:51] LABS: Basophils % (Manual) 0 % (0.0-1.8); Total Cells Counted 100
[2022-03-02 05:52] LABS: Anisocytosis 1+; Hypochromasia 1+; Platelet Estimate Consistent w Auto
--- NOTE | 2022-03-03 20:08 | Electrocardiograph Report ---
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
== END 2022-03-02 01:00 | disposition home or self-care (01) ==
LOC: ED 18:03
DX: R53.1 Weakness (principal); F10.20 Alcohol dependence, uncomplicated; I10 Essential (primary) hypertension; E11.9 Type 2 diabetes mellitus without complications; N20.0 Calculus of kidney; Z98.890 Other specified postprocedural states; Z79.899 Other long term (current) drug therapy; Z91.09 Other allergy status, other than to drugs and biological substances
CPT/HCPCS: 36415; 80053; 83735; 84100; 85007; 85025; 93005; 96374; 99284; J0610; 80320; G0480

== ENCOUNTER 2022-07-20 21:19 | Emergency (ER) | payer SELFPAY ==
[2022-07-21 00:22] VITALS: BP 152/98
[2022-07-21] MEDS ORDERED: SULFAMETHOXAZOLE/TRIMETHOPRIM 800/160MG DS TAB PO ONE (09:36)
[2022-07-21] MEDS ORDERED: KETOROLAC 30 MG/1 ML INJ IV ONE (09:36)
[2022-07-21] MEDS ORDERED: oxyCODONE /ACETAMINOPHEN 5-325MG TAB PO ONE (09:36)
[2022-07-21] MEDS ORDERED: ONDANSETRON 4 MG/2 ML INJ IV ONE (09:36)
[2022-07-21 10:38] LABS: Basophils % (Auto) 0.4 % (0.0-1.8); Eosinophils # (Auto) 0.1 K/mm3 (0.0-0.4); Eosinophils % (Auto) 0.9 % (0.0-4.3); Hematocrit 32.4 % (30.3-42.9); Hemoglobin 10.3 gm/dl (10.1-14.3); Lymphocytes # (Auto) 1.4 K/mm3 (1.2-5.4); Lymphocytes % (Auto) 17.6 % (13.4-35.0); Mean Corpuscular HGB Conc 32 % (30-34); Mean Corpuscular Volume 90 fl (79-97); Monocytes # (Auto) 0.4 K/mm3 (0.0-0.8); Monocytes % (Auto) 4.8 % (0.0-7.3); Platelet Count 276 K/mm3 (140-440); Red Blood Count 3.58 M/mm3 (3.65-5.03); Red Cell Distribution Width 17.4 % (13.2-15.2)
[2022-07-21 10:57] LABS: Alanine Aminotransferase 23 units/L (7-56); Albumin 3.8 g/dL (3.9-5); BUN/Creatinine Ratio 6; Blood Urea Nitrogen 5 mg/dL (7-17); Hemolysis Index 2
[2022-07-21 11:03] LABS: Calcium 6.1 mg/dL (8.4-10.2)
--- NOTE | 2022-07-21 11:32 | Emergency Department Report ---
ED Extremity Problem HPI - General Chief complaint: Extremity Injury, Lower Stated complaint: BOTH LEGS/FEET HURT Source: patient Mode of arrival: Ambulatory Limitations: No Limitations - History of Present Illness Initial comments: Patient is a 56-year-old female with a history of hypertension, hypothyroidism who presents to the ED with complaint of acute onset persistent bilateral lower extremity swelling and pain with mild erythematous rashes for the last 1 month, worse in the last 2 days. Patient states that she works most of the time and therefore has had intermittent bilateral lower extremity swelling and ulcers on the feet. Patient denies fever, chills, shortness of breath, chest pain, nausea and vomiting, numbness and tingling or weakness of lower extremities bilaterally or change in vision. MD Complaint: extremity pain (bilateral lower extremity pain), extremity swelling (bilateral lower extremity), other (bilateral lower extremity mild erythematous rash) -: Gradual, week(s) (2) Location: bilateral lower extremity History of Same: Yes -: Yes myalgia, Yes arthralgia, No fever, No associated dyspnea, No associated chest pain Radiation: distal Severity scale (0 -10): 8 Quality: aching, sharp Consistency: constant Improves with: nothing Worsens with: weight bearing, walking Associated Symptoms: denies other symptoms, myalgias, arthralgias, rash (Mild erythematous maculopapular rashes on right lower leg). denies: chest pain, shortness of breath, fever - Related Data Previous Rx's Medication Instructions Recorded Last Taken Type Multivitamins-Mineral [Theragran-M] 1 each PO DAILY 30 Days tablet 01/08/14 1 Day Ago Rx ~11/08/15 Calcium Carbonate/Vitamin D3 1 tab PO QDAY #30 tablet 12/18/15 Unknown Rx [Calcium 600-Vit D3 800 Tablet] Calcium Carbonate [Calcium] 500 mg PO TID #90 tablet 04/01/19 Unknown Rx Ferrous Gluconate [Fergon 325 MG 324 mg PO QDAY #30 tablet 08/20/19 Unknown Rx tab] Gabapentin 300 mg PO Q8HR #90 capsule 08/20/19 Unknown Rx Ciprofloxacin HCl [Ciprofloxacin 500 mg PO Q12HR #14 tab 09/16/19 Unknown Rx TAB] HYDROcodone/APAP 5-325 [[place] 1 each PO Q6HR PRN #14 tablet 09/16/19 Unknown Rx 5/325] Magnesium Oxide 400 mg PO QDAY #30 tablet 04/04/21 Unknown Rx Calc Carb/Vit D 500 mg-200 Uni 2 each PO BID #60 tablet 09/12/21 Unknown Rx [Oysco D 500 mg-200 Unit] Folic Acid [Folvite] 1 mg PO DAILY #30 tablet 09/12/21 Unknown Rx Metoprolol [Lopressor TAB] 25 mg PO BID #60 tablet 09/12/21 Unknown Rx Pantoprazole [Protonix] 40 mg PO BID #60 tablet 09/12/21 Unknown Rx Thiamine [Vitamin B-1] 100 mg PO QDAY #30 tablet 09/12/21 Unknown Rx hydroCHLOROthiazide [HCTZ] 25 mg PO QDAY #30 capsule 09/12/21 Unknown Rx Acetaminophen/Codeine [Tylenol 1 tab PO Q6H PRN #12 tab 02/25/22 Unknown Rx /Codeine # 3 tab] Calcium Phosphate Trib/Vit D3 1 each PO DAILY #60 tab 03/01/22 Unknown Rx [Calcium + Vitamin D3 Gummies] Furosemide [Lasix TAB] 20 mg PO QDAY #30 tablet 07/21/22 Unknown Rx Gabapentin 600 mg PO Q8HR #90 capsule 07/21/22 Unknown Rx Ibuprofen [Motrin 600 MG tab] 600 mg PO Q8H PRN #30 tablet 07/21/22 Unknown Rx Levothyroxine [Synthroid] 75 mcg PO QAM #30 tablet 07/21/22 Unknown Rx Sulfamethoxazole/Trimethoprim 1 each PO Q12H #20 tablet 07/21/22 Unknown Rx [Bactrim DS TAB] amLODIPine 10 mg PO DAILY #30 tab 07/21/22 Unknown Rx Allergies Allergy/AdvReac Type Severity Reaction Status Date / Time lisinopril Allergy Angioedema Verified 09/12/21 08:05 ED Review of Systems ROS: Stated complaint: BOTH LEGS/FEET HURT Other details as noted in HPI Constitutional: denies: chills, fever Eyes: denies: eye pain, eye discharge, vision change ENT: denies: ear pain, throat pain Respiratory: denies: cough, shortness of breath, wheezing Cardiovascular: denies: chest pain, palpitations Endocrine: no symptoms reported Gastrointestinal: denies: abdominal pain, nausea, diarrhea Genitourinary: denies: urgency, dysuria, discharge Musculoskeletal: joint swelling (Bilateral 1+ edema with localized mild erythematous rash), arthralgia (Bilateral lower extremity), myalgia. denies: back pain Skin: rash (Mild erythematous maculopapular rash on right lower leg). denies: l roxana Neurological: denies: headache, weakness, numbness, paresthesias, confusion, abnormal gait Psychiatric: denies: anxiety, depression Hematological/Lymphatic: denies: easy bleeding, easy bruising ED Past Medical Hx - Past Medical History Hx Hypertension: Yes Hx Congestive Heart Failure: No Hx Diabetes: Yes (States "prediabetic" not on medication) Hx Sickle Cell Disease: No Hx Seizures: No Hx Kidney Stones: Yes Hx Asthma: No Hx COPD: No Hx HIV: No Additional medical history: anemia. low calcium. Hypothyroidism. ALCOHOLIC - Surgical History Additional Surgical History: thyroid and parathyroid removed - Social History Smoking Status: Never Smoker - Medications Home Medications: Home Medications Medication Instructions Recorded Confirmed Last Taken Type Multivitamins-Mineral [Theragran-M] 1 each PO DAILY 30 Days tablet 01/08/14 03/30/19 1 Day Ago Rx ~11/08/15 Calcium Carbonate/Vitamin D3 1 tab PO QDAY #30 tablet 12/18/15 03/30/19 Unknown Rx [Calcium 600-Vit D3 800 Tablet] Calcium Carbonate [Calcium] 500 mg PO TID #90 tablet 04/01/19 Unknown Rx Ferrous Gluconate [Fergon 325 MG 324 mg PO QDAY #30 tablet 08/20/19 Unknown Rx tab] Gabapentin 300 mg PO Q8HR #90 capsule 08/20/19 Unknown Rx Ciprofloxacin HCl [Ciprofloxacin 500 mg PO Q12HR #14 tab 09/16/19 Unknown Rx TAB] HYDROcodone/APAP 5-325 [[place] 1 each PO Q6HR PRN #14 tablet 09/16/19 Unknown Rx 5/325] Magnesium Oxide 400 mg PO QDAY #30 tablet 04/04/21 Unknown Rx Calc Carb/Vit D 500 mg-200 Uni 2 each PO BID #60 tablet 09/12/21 Unknown Rx [Oysco D 500 mg-200 Unit] Folic Acid [Folvite] 1 mg PO DAILY #30 tablet 09/12/21 Unknown Rx Metoprolol [Lopressor TAB] 25 mg PO BID #60 tablet 09/12/21 Unknown Rx Pantoprazole [Protonix] 40 mg PO BID #60 tablet 10/24/21 Unknown Rx Thiamine [Vitamin B-1] 100 mg PO QDAY #30 tablet 09/12/21 Unknown Rx hydroCHLOROthiazide [HCTZ] 25 mg PO QDAY #30 capsule 09/12/21 Unknown Rx Acetaminophen/Codeine [Tylenol 1 tab PO Q6H PRN #12 tab 02/25/22 Unknown Rx /Codeine # 3 tab] Calcium Phosphate Trib/Vit D3 1 each PO DAILY #60 tab 03/01/22 Unknown Rx [Calcium + Vitamin D3 Gummies] Furosemide [Lasix TAB] 20 mg PO QDAY #30 tablet 07/21/22 Unknown Rx Gabapentin 600 mg PO Q8HR #90 capsule 07/21/22 Unknown Rx Ibuprofen [Motrin 600 MG tab] 600 mg PO Q8H PRN #30 tablet 07/21/22 Unknown Rx Levothyroxine [Synthroid] 75 mcg PO QAM #30 tablet 07/21/22 Unknown Rx Sulfamethoxazole/Trimethoprim 1 each PO Q12H #20 tablet 07/21/22 Unknown Rx [Bactrim DS TAB] amLODIPine 10 mg PO DAILY #30 tab 07/21/22 Unknown Rx ED Physical Exam - General Limitations: No Limitations General appearance: alert, in no apparent distress - Head Head exam: Present: atraumatic, normocephalic, normal inspection - Eye Eye exam: Present: normal appearance, PERRL, EOMI Pupils: Present: normal accommodation - ENT ENT exam: Present: normal exam, normal orophraynx, mucous membranes moist, TM's normal bilaterally, normal external ear exam - Neck Neck exam: Present: normal inspection, full ROM. Absent: tenderness - Respiratory Respiratory exam: Present: normal lung sounds bilaterally. Absent: respiratory distress, wheezes, rales, rhonchi, chest wall tenderness, accessory muscle use, decreased breath sounds, prolonged expiratory - Cardiovascular Cardiovascular Exam: Present: regular rate, normal rhythm, normal heart sounds. Absent: systolic murmur, diastolic murmur, rubs, gallop - GI/Abdominal GI/Abdominal exam: Present: soft, normal bowel sounds. Absent: tenderness, guarding, rebound, hyperactive bowel sounds, hypoactive bowel sounds, organomegaly - Extremities Exam Extremities exam: Present: normal inspection, full ROM, normal capillary refill, pedal edema (1+ edema bilaterally), joint swelling (Bilateral ankle and foot swelling). Absent: calf tenderness - Back Exam Back exam: Present: normal inspection, full ROM. Absent: tenderness, CVA tenderness (R), CVA tenderness (L), muscle spasm, paraspinal tenderness, vertebral tenderness, rash noted - Neurological Exam Neurological exam: Present: alert, oriented X3, CN II-XII intact, normal gait, reflexes normal - Psychiatric Psychiatric exam: Present: normal affect, normal mood - Skin Skin exam: Present: warm, dry, intact, normal color, rash (Mild erythematous rashes on right lower extremity), erythema. Absent: cyanosis, diaphoretic, urticaria, vesicles, petechiae, pallor, abrasion, ecchymosis, other ED Course Vital Signs 07/21/22 00:21 Temperature 98.1 F Pulse Rate 83 Respiratory 16 Rate Blood Pressure 152/98 O2 Sat by Pulse 99 Oximetry ED Medical Decision Making - Lab Data Result diagrams: 07/21/22 10:09 07/21/22 10:09 - Medical Decision Making This is a 56-year-old female with a history of hypertension, hypothyroidism who presents to the ED with complaint of acute onset persistent bilateral lower extremity swelling and pain with mild erythematous rashes for the last 1 month, worse in the last 2 days. Patient states that she works most of the time and therefore has had intermittent bilateral lower extremity swelling and ulcers on the feet. In the ED, patient is alert and oriented x3 and is not in any distress. Patient was treated for pain in the ED. Lab test results were reviewed and are all nonactionable. Patient also received clindamycin 900 mg IV x1. On reevaluation, patient's pain is well controlled medication. Patient will discharge home on pain medications and given a refill of her medications. Patient is advised to return to the ED immediately if symptoms get worse. Patient was advised to follow-up with her primary care physician in 7 to 10 days for reevaluation. - Differential Diagnosis cellulitis; pedal edema; chronic lymphedema Critical care attestation.: If time is entered above; I have spent that time in minutes in the direct care of this critically ill patient, excluding procedure time. ED Disposition Clinical Impression: Cellulitis of right lower extremity, Localized swelling of both lower legs Disposition: HOME / SELF CARE / HOMELESS Is pt being admited?: No Does the pt Need Aspirin: No Condition: Stable Instructions: Cellulitis, Adult, [id number] Additional Instructions: All lab test results were reviewed and are all nonactionable. Therefore take medication with food, drink plenty of fluids and follow-up with your primary care physician in 7 to 10 days for reevaluation. Return to the ED immediately if symptoms get worse. Prescriptions: amLODIPine 10 mg PO DAILY #30 tab Sulfamethoxazole/Trimethoprim [Bactrim DS TAB] 1 each PO Q12H #20 tablet Gabapentin 600 mg PO Q8HR #90 capsule Furosemide [Lasix TAB] 20 mg PO QDAY #30 tablet Ibuprofen [Motrin 600 MG tab] 600 mg PO Q8H PRN #30 tablet PRN Reason: Pain Levothyroxine [Synthroid] 75 mcg PO QAM #30 tablet Referrals: [facility] [Provider Group] - 7-10 days Time of Disposition: 11:35 Print Language: MALAWIAN
== END 2022-07-21 14:25 | disposition home or self-care (01) ==
LOC: ED 21:19
DX: L03.115 Cellulitis of right lower limb (principal); R60.0 Localized edema; I10 Essential (primary) hypertension; E11.9 Type 2 diabetes mellitus without complications; E03.9 Hypothyroidism, unspecified; Z79.899 Other long term (current) drug therapy; Z88.8 Allergy status to other drugs, medicaments and biological substances
CPT/HCPCS: 36415; 80053; 82140; 85025; 87040; 96365; 96375; 99283; J1885; J2405; J7502